=== PATIENT | female | born 1945 | race Two or more races ===

== ENCOUNTER 2016-08-19 09:17 | Observation (INO) | payer MEDICARE, OTHER ==
[~2016-08-19] VITALS: Ht 154.9 cm; Wt 51.3 kg
[~2016-08-19 09:17] MED LIST: ALLO300T2 PO; AMLO5TAB2 PO; ATOR20TA50 PO; CARV12.544 PO; CHOL20007 OR; CYCL1TAB18 PO; FOLIPOW28; LOS50T GT; MEGE40SU PO; NOR10T PO; OMEP20TA85 PO; OYST500T28 PO; POTA10TA34 PO; PROM25TA5 PO; SUCR1TAB PO; TEMA30CA PO
[2016-08-19] MEDS ORDERED: KETOROLAC TROMETH 30 MG/ML 1ML VIAL IV ONE (10:30)
[2016-08-19] MEDS ORDERED: METOCLOPRAMIDE HCL 5MG/ml INJ 2ml VIAL IV ONE (10:30)
[2016-08-19] MEDS ORDERED: SODIUM CHLORIDE 0.9% 1,000 ML IV ONE (10:30)
[2016-08-19 11:09] LABS: Urine RBC None Seen /hpf (0 - 4)
[2016-08-19 11:09] LABS: Basophils # (auto) 0 uL; Basophils % (auto) 0.1 % (0.0-2.0); Eosinophils # (auto) 0.2 uL; Eosinophils % (auto) 1.9 % (0.0-7.0); Hematocrit 36.4 % (36.0-46.0); Hemoglobin 11.9 g/dL (12.2-16.2); Lymphocytes % (auto) 10.7 % (10.0-50.0); Mean Corpuscular Hemoglobin 32.1 pg (28.0-32.0); Mean Corpuscular Hgb Conc. 32.7 g/dL (32.0-36.0); Mean Corpuscular Volume 98.1 fL (80.0-100.0); Mean Platelet Volume 7.2 fL (7.4-10.4); Monocytes # (auto) 0.8 uL; Monocytes % (auto) 8.4 % (0.0-12.0); Neutrophils # (auto) 7.7 uL; Neutrophils % (auto) 78.9 % (37.0-80.0); Platelet Count (auto) 335 10^3/uL (140-450); Red Cell Distribution Width 16.4 % (11.6-16.0); White Blood Cell 9.7 10^3/uL (4.4-10.8)
[2016-08-19 11:19] LABS: Urine Bilirubin Negative (Negative); Urine Blood Negative /uL (Negative); Urine Color Yellow (Yellow); Urine Glucose Normal (Normal); Urine Ketone Negative (Negative); Urine Nitrite Negative (Negative); Urine Squamous Epithelial Cell FEW /hpf (<5); Urine Urobilinogen Normal (Negative)
[2016-08-19 11:31] LABS: Albumin 3.5 g/dL (3.4-5.0); BUN/Creatinine Ratio 35.7; Bilirubin, Total 0.3 mg/dL (0.2-1.0); Calcium 8.2 mg/dL (8.5-10.1); Magnesium 2.5 mg/dL (1.6-2.6); Potassium 4.1 mmol/L (3.5-5.1); Total Protein 7.2 g/dL (6.4-8.2)
[2016-08-19] MEDS ORDERED: ASP81EC PO (11:37)
[2016-08-19] MEDS ORDERED: METF-312 PO (11:38)
[2016-08-19] MEDS ORDERED: FOLI1TAB6 PO (11:39)
[2016-08-19] MEDS ORDERED: DYA375C PO (11:40)
[2016-08-19 11:57] VITALS: BP 120/68
== END 2016-08-19 12:57 | disposition home or self-care (01) | DRG 605 ==
LOC: EDBD 09:17 → ER 09:17 → OVERFLOW 10:33 → ER 12:57
PROVIDERS: ADMIT Emergency Medicine; ATTEND Emergency Medicine
DX: S00.83XA Contusion of other part of head, initial encounter (principal); S39.012A Strain of muscle, fascia and tendon of lower back, initial encounter; S40.012A Contusion of left shoulder, initial encounter; E11.9 Type 2 diabetes mellitus without complications; N39.0 Urinary tract infection, site not specified; E78.5 Hyperlipidemia, unspecified; I10 Essential (primary) hypertension; M10.9 Gout, unspecified; M19.90 Unspecified osteoarthritis, unspecified site; Z98.890 Other specified postprocedural states; W07.XXXA Fall from chair, initial encounter; Y93.89 Activity, other specified; Y92.89 Other specified places as the place of occurrence of the external cause; Y99.8 Other external cause status
CPT/HCPCS: 36415; 70450; 72131; 80053; 81001; 83735; 85025; 93005; 96361; 96374; 96375; 99285; G0378; J1885; J2765; J7030

== ENCOUNTER → 2016-10-02 | Outpatient (CLI) | payer MEDICARE, OTHER ==
[~2016-10-02] MED LIST changes: +ASP81EC PO; +DYA375C PO; +FOLI1TAB6 PO; -FOLIPOW28; +METF-312 PO
[2016-10-02 15:32] LABS: Urine Bilirubin Negative (Negative); Urine Blood Negative /uL (Negative); Urine Color Yellow (Yellow); Urine Glucose Normal (Normal); Urine Ketone Negative (Negative); Urine Nitrite Negative (Negative); Urine RBC <1 /hpf (0 - 4); Urine Squamous Epithelial Cell FEW /hpf (<5); Urine Urobilinogen Normal (Negative); Urine pH 6.5 (5.0-8.0)
== END | disposition home or self-care (01) ==
LOC: LAB 14:49
DX: N39.0 Urinary tract infection, site not specified (principal)
CPT/HCPCS: 81001

== ENCOUNTER → 2016-11-07 | Outpatient (CLI) | payer MEDICARE, OTHER ==
[~2016-11-07] MED LIST changes: -METF-312 PO; +METF-370 PO
[2016-11-07 11:35] LABS: Basophils # (auto) 0 uL; Basophils % (auto) 0.5 % (0.0-2.0); CONDITION Y; Eosinophils # (auto) 0.2 uL; Eosinophils % (auto) 2.8 % (0.0-7.0); Hematocrit 41.3 % (36.0-46.0); Hemoglobin 13.8 g/dL (12.2-16.2); Lymphocytes # (auto) 2.3 uL; Lymphocytes % (auto) 35.1 % (10.0-50.0); Mean Corpuscular Hemoglobin 31.4 pg (28.0-32.0); Mean Corpuscular Hgb Conc. 33.3 g/dL (32.0-36.0); Mean Platelet Volume 7.6 fL (7.4-10.4); Monocytes # (auto) 0.4 uL; Monocytes % (auto) 5.6 % (0.0-12.0); Neutrophils # (auto) 3.6 uL; Platelet Count (auto) 400 10^3/uL (140-450); Red Cell Distribution Width 15.5 % (11.6-16.0); White Blood Cell 6.5 10^3/uL (4.4-10.8)
[2016-11-07 11:45] LABS: Urine Bilirubin Negative (Negative); Urine Blood Negative /uL (Negative); Urine Color Yellow (Yellow); Urine Glucose Normal (Normal); Urine Ketone Negative (Negative); Urine Nitrite Negative (Negative); Urine RBC 4 /hpf (0 - 4); Urine Squamous Epithelial Cell FEW /hpf (<5); Urine Urobilinogen Normal (Negative)
[2016-11-07 12:11] LABS: Albumin 4.1 g/dL (3.4-5.0); BUN/Creatinine Ratio 23.3; Bilirubin, Total 0.4 mg/dL (0.2-1.0); Calcium 8.2 mg/dL (8.5-10.1); Potassium 3.8 mmol/L (3.5-5.1); Total Protein 8.5 g/dL (6.4-8.2); Uric Acid 6.6 mg/dL (2.6-6.0)
== END | disposition home or self-care (01) ==
LOC: LAB 10:16
PROVIDERS: ATTEND Internal Medicine
DX: Z00.00 Encounter for general adult medical examination without abnormal findings (principal); I10 Essential (primary) hypertension; E78.00 Pure hypercholesterolemia, unspecified; E55.9 Vitamin D deficiency, unspecified; E11.22 Type 2 diabetes mellitus with diabetic chronic kidney disease; M06.9 Rheumatoid arthritis, unspecified
CPT/HCPCS: 36415; 80053; 80061; 81001; 82043; 82306; 82607; 82728; 83036; 83540; 84439; 84443; 84481; 84550; 85025; 85652; 86141

== ENCOUNTER → 2017-02-21 | Outpatient (CLI) | payer MEDICARE, OTHER ==
[2017-02-21 13:42] LABS: Basophils # (auto) 0 uL; Basophils % (auto) 0.4 % (0.0-2.0); Eosinophils # (auto) 0.1 uL; Eosinophils % (auto) 0.8 % (0.0-7.0); Hematocrit 41.3 % (36.0-46.0); Hemoglobin 13.6 g/dL (12.2-16.2); Lymphocytes # (auto) 1.7 uL; Lymphocytes % (auto) 21.7 % (10.0-50.0); Mean Corpuscular Hemoglobin 32.5 pg (28.0-32.0); Mean Corpuscular Hgb Conc. 32.8 g/dL (32.0-36.0); Mean Corpuscular Volume 99.1 fL (80.0-100.0); Mean Platelet Volume 7.5 fL (6.9-10.8); Monocytes # (auto) 0.5 uL; Monocytes % (auto) 6.7 % (0.0-12.0); Neutrophils # (auto) 5.4 uL; Neutrophils % (auto) 70.4 % (37.0-80.0); Platelet Count (auto) 240 10^3/uL (140-450); White Blood Cell 7.6 10^3/uL (4.4-10.8)
[2017-02-21 14:03] LABS: Albumin 4.2 g/dL (3.4-5.0); Alkaline Phosphatase 65 U/L (45-117); Anion Gap 5 (5-15); Aspartate Aminotransferase 43 U/L (15-37); BUN/Creatinine Ratio 17.5; Bilirubin, Total 0.4 mg/dL (0.2-1.0); Blood Urea Nitrogen 21 mg/dL (7-18); Calcium 8.8 mg/dL (8.5-10.1); Carbon Dioxide 27 mmol/L (21-32); Chloride 108 mmol/L (98-107); GFR African American 57 mL/min; GFR Non-African American 47 mL/min; Glucose 104 mg/dL (74-106); Potassium 3.6 mmol/L (3.5-5.1); Sodium 140 mmol/L (136-145); Total Protein 8.4 g/dL (6.4-8.2)
== END | disposition home or self-care (01) ==
LOC: LAB 13:25
DX: M06.9 Rheumatoid arthritis, unspecified (principal); M25.50 Pain in unspecified joint; I10 Essential (primary) hypertension; Z79.899 Other long term (current) drug therapy
CPT/HCPCS: 36415; 80053; 85025; 85652; 86141

== ENCOUNTER → 2017-04-23 | Outpatient (CLI) | payer MEDICARE, OTHER ==
[2017-04-23 11:48] LABS: Basophils # (auto) 0.1 uL; Eosinophils # (auto) 0.2 uL; Eosinophils % (auto) 2.4 % (0.0-7.0); Hematocrit 41.6 % (36.0-46.0); Hemoglobin 13.4 g/dL (12.2-16.2); Lymphocytes # (auto) 1.6 uL; Lymphocytes % (auto) 22.4 % (10.0-50.0); Mean Corpuscular Hemoglobin 32.4 pg (28.0-32.0); Mean Corpuscular Hgb Conc. 32.4 g/dL (32.0-36.0); Mean Corpuscular Volume 100.1 fL (80.0-100.0); Monocytes # (auto) 0.5 uL; Monocytes % (auto) 7.5 % (0.0-12.0); Neutrophils # (auto) 4.7 uL; Neutrophils % (auto) 65.7 % (37.0-80.0); Platelet Count (auto) 207 10^3/uL (140-450); White Blood Cell 7.1 10^3/uL (4.4-10.8)
[2017-04-23 12:13] LABS: Albumin 4.1 g/dL (3.4-5.0); Alkaline Phosphatase 68 U/L (45-117); Anion Gap 8 (5-15); Aspartate Aminotransferase 46 U/L (15-37); BUN/Creatinine Ratio 18.4; Bilirubin, Total 0.4 mg/dL (0.2-1.0); Blood Urea Nitrogen 21 mg/dL (7-18); Calcium 9.4 mg/dL (8.5-10.1); Carbon Dioxide 27 mmol/L (21-32); Chloride 104 mmol/L (98-107); Cholesterol 142 mg/dL (< 200); GFR African American 60 mL/min; GFR Non-African American 50 mL/min; Glucose 84 mg/dL (74-106); HDL Cholesterol 73 mg/dL (40-59); LDL Cholesterol 58 mg/dL (< 100); Potassium 4.4 mmol/L (3.5-5.1); Sodium 139 mmol/L (136-145); Total Protein 8.3 g/dL (6.4-8.2); Triglycerides 148 mg/dL (< 150)
== END | disposition home or self-care (01) ==
LOC: LAB 11:19
DX: I10 Essential (primary) hypertension (principal); E78.00 Pure hypercholesterolemia, unspecified; M06.9 Rheumatoid arthritis, unspecified; D64.9 Anemia, unspecified; I70.0 Atherosclerosis of aorta; Z79.899 Other long term (current) drug therapy
CPT/HCPCS: 36415; 80053; 80061; 85025; 85652; 86141

== ENCOUNTER 2017-06-29 22:18 | Emergency (ER) | payer MEDICARE, OTHER ==
[2017-06-29 23:44] LABS: Basophils # (auto) 0 uL; Basophils % (auto) 0.5 % (0.0-2.0); Eosinophils # (auto) 0.2 uL; Eosinophils % (auto) 2.6 % (0.0-7.0); Hematocrit 42.7 % (36.0-46.0); Hemoglobin 14.1 g/dL (12.2-16.2); Lymphocytes # (auto) 1.9 uL; Lymphocytes % (auto) 24.4 % (10.0-50.0); Mean Corpuscular Hgb Conc. 32.9 g/dL (32.0-36.0); Mean Corpuscular Volume 94.3 fL (80.0-100.0); Monocytes # (auto) 0.6 uL; Monocytes % (auto) 8.4 % (0.0-12.0); Neutrophils # (auto) 4.9 uL; Neutrophils % (auto) 64.1 % (37.0-80.0); Nucleated Red Blood Cells % 0.2 %; Platelet Count (auto) 268 10^3/uL (140-450); Red Blood Cells 4.53 10^6/uL (4.0-5.20); White Blood Cell 7.7 10^3/uL (4.4-10.8)
[2017-06-29 23:59] LABS: Urine Amorphous Crystal FEW /hpf (None Seen); Urine Bacteria MOD /hpf (None Seen); Urine Blood TRACE /uL (Negative); Urine Mucus FEW (None Seen); Urine WBC 1 /hpf (0 - 5)
[2017-06-30] LABS: INR 0.95 (0.9-1.15); Partial Thromboplastin Time 26.3 sec (22.64-33.71); Prothrombin Time 10.4 sec (9.37-12.3)
[2017-06-30 00:01] LABS: Alanine Aminotransferase 152 U/L (13-56); Albumin 3.9 g/dL (3.4-5.0); Anion Gap 8 (5-15); Aspartate Aminotransferase 169 U/L (15-37); BUN/Creatinine Ratio 12.7; Blood Urea Nitrogen 14 mg/dL (7-18); Calcium 10.5 mg/dL (8.5-10.1); Carbon Dioxide 33 mmol/L (21-32); Chloride 102 mmol/L (98-107); GFR African American 63 mL/min; GFR Non-African American 52 mL/min; Glucose 126 mg/dL (74-106); Magnesium 3.5 mg/dL (1.6-2.6); Sodium 143 mmol/L (136-145)
[2017-06-30 00:06] LABS: Alkaline Phosphatase 122 U/L (45-117); Bilirubin, Total 0.4 mg/dL (0.2-1.0); Total Protein 8.5 g/dL (6.4-8.2)
[2017-06-30] MEDS ORDERED: NALBUPHINE HCL 10 MG/1ml INJECTION IV ONE (04:15)
[2017-06-30] MEDS ORDERED: ONDANSETRON HCL 4 MG/2 ML VIAL IV ONE (04:15)
[2017-06-30] MEDS ORDERED: POTASSIUM CHL 20 Meq TABLET PO ONE ×2 (05:59→06:00)
[2017-06-30] MEDS ORDERED: POTASSIUM CHL 10% (20 MEQ/15ML) 15ml ORAL SOLN PO ONE (08:00)
[2017-06-30] MEDS ORDERED: HYDROcodone-ACET 10/325MG TAB PO ONE (08:15)
[2017-06-30 09:48] VITALS: BP 133/69
== END 2017-06-30 11:00 | disposition home or self-care (01) ==
LOC: ER 22:18
DX: S39.012A Strain of muscle, fascia and tendon of lower back, initial encounter (principal); M10.9 Gout, unspecified; I10 Essential (primary) hypertension; E87.6 Hypokalemia; E11.9 Type 2 diabetes mellitus without complications; E78.5 Hyperlipidemia, unspecified; M19.90 Unspecified osteoarthritis, unspecified site; Z90.49 Acquired absence of other specified parts of digestive tract; R79.89 Other specified abnormal findings of blood chemistry; G89.29 Other chronic pain; M54.9 Dorsalgia, unspecified; X58.XXXA Exposure to other specified factors, initial encounter; Y93.89 Activity, other specified; Y92.89 Other specified places as the place of occurrence of the external cause; Y99.8 Other external cause status
CPT/HCPCS: 36415; 71046; 74176; 80053; 81001; 83735; 83880; 84443; 84484; 85025; 85379; 85610; 85730; 87804; 93005; 96374; 96375; 99285; J2300; J2405

== ENCOUNTER → 2017-10-10 | Outpatient (CLI) | payer MEDICARE, OTHER ==
[2017-10-10 12:39] LABS: Basophils # (auto) 0 uL; Basophils % (auto) 0.3 % (0.0-2.0); Eosinophils # (auto) 0.2 uL; Eosinophils % (auto) 2.6 % (0.0-7.0); Hematocrit 40.8 % (36.0-46.0); Hemoglobin 13.3 g/dL (12.2-16.2); Lymphocytes # (auto) 1.9 uL; Lymphocytes % (auto) 28.6 % (10.0-50.0); Mean Corpuscular Hemoglobin 30.7 pg (28.0-32.0); Mean Corpuscular Hgb Conc. 32.6 g/dL (32.0-36.0); Mean Corpuscular Volume 94.2 fL (80.0-100.0); Monocytes # (auto) 0.5 uL; Neutrophils # (auto) 3.9 uL; Neutrophils % (auto) 60.5 % (37.0-80.0); Platelet Count (auto) 194 10^3/uL (140-450); Red Blood Cells 4.33 10^6/uL (4.0-5.20); Red Cell Distribution Width 15.5 % (11.8-14.3); White Blood Cell 6.5 10^3/uL (4.4-10.8)
[2017-10-10 12:42] LABS: Urine Bacteria NONE SEEN /hpf (None Seen); Urine Blood 1+ /uL (Negative); Urine Mucus FEW (None Seen); Urine WBC 4 /hpf (0 - 5)
[2017-10-10 13:48] LABS: Potassium 4.4 mmol/L (3.5-5.1)
[2017-10-10 14:11] LABS: Albumin 3.6 g/dL (3.4-5.0); Bilirubin, Total 0.2 mg/dL (0.2-1.0); Calcium 10.1 mg/dL (8.5-10.1); Total Protein 8.7 g/dL (6.4-8.2)
== END | disposition home or self-care (01) ==
LOC: LAB 11:48
PROVIDERS: ATTEND Physician Assistant
DX: Z01.818 Encounter for other preprocedural examination (principal); I12.9 Hypertensive chronic kidney disease with stage 1 through stage 4 chronic kidney disease, or unspecified chronic kidney disease; E11.22 Type 2 diabetes mellitus with diabetic chronic kidney disease; N18.3 Chronic kidney disease, stage 3 (moderate); D63.1 Anemia in chronic kidney disease; K76.0 Fatty (change of) liver, not elsewhere classified
CPT/HCPCS: 36415; 80053; 80061; 81001; 85025

== ENCOUNTER 2017-11-11 15:36 | Emergency (ER) | payer MEDICARE, OTHER ==
[~2017-11-11] VITALS: Ht 154.9 cm; Wt 45.4 kg
[2017-11-11 16:00] VITALS: BP 107/61
[2017-11-11] MEDS ORDERED: KETOROLAC TROMETH 60MG/2ML VIAL IM ONE (18:30)
== END 2017-11-11 19:00 | disposition home or self-care (01) ==
LOC: ER 15:36
DX: M25.552 Pain in left hip (principal); M25.551 Pain in right hip; E11.9 Type 2 diabetes mellitus without complications; M10.9 Gout, unspecified; E78.5 Hyperlipidemia, unspecified; M06.9 Rheumatoid arthritis, unspecified; I10 Essential (primary) hypertension; Z90.49 Acquired absence of other specified parts of digestive tract; Z88.8 Allergy status to other drugs, medicaments and biological substances; Z79.899 Other long term (current) drug therapy; Z79.84 Long term (current) use of oral hypoglycemic drugs; Z79.82 Long term (current) use of aspirin
CPT/HCPCS: 73502; 96372; 99284; J1885

== ENCOUNTER 2018-07-08 10:39 | Emergency (ER) | payer MEDICARE, OTHER ==
[~2018-07-08 10:39] MED LIST changes: +AMLO5TAB13 PO; -AMLO5TAB2 PO; -POTA10TA34 PO; +POTA1TAB61 PO
[2018-07-08 14:05] VITALS: BP 141/58
== END 2018-07-08 15:26 | disposition home or self-care (01) ==
LOC: ER 10:46
DX: T17.208A Unspecified foreign body in pharynx causing other injury, initial encounter (principal); I10 Essential (primary) hypertension; E78.00 Pure hypercholesterolemia, unspecified; E11.9 Type 2 diabetes mellitus without complications; Z90.49 Acquired absence of other specified parts of digestive tract; Z88.8 Allergy status to other drugs, medicaments and biological substances; Z79.82 Long term (current) use of aspirin; Z79.891 Long term (current) use of opiate analgesic; Z79.899 Other long term (current) drug therapy; X58.XXXA Exposure to other specified factors, initial encounter; Y93.89 Activity, other specified; Y99.8 Other external cause status; Y92.89 Other specified places as the place of occurrence of the external cause
CPT/HCPCS: 70360

== ENCOUNTER → 2019-02-13 | Outpatient (CLI) | payer MEDICARE, OTHER ==
[~2019-02-13] MED LIST changes: -AMLO5TAB13 PO; +AMLO5TAB15 PO; -ATOR20TA50 PO; -CARV12.544 PO; -CYCL1TAB18 PO; -DYA375C PO; +HYDR1TAB97; +IBUP800T24; -LOS50T GT; -MEGE40SU PO; +MET25T; -NOR10T PO; -PROM25TA5 PO; +ROSU1TAB15; -SUCR1TAB PO; -TEMA30CA PO
[2019-02-13 08:04] LABS: Urine Bacteria NONE SEEN /hpf (None Seen); Urine Blood 2+ /uL (Negative); Urine Mucus FEW (None Seen); Urine Specific Gravity 1.033 (1.001-1.035); Urine WBC 830 /hpf (0 - 5); Urine WBC Clumps PRESENT /hpf (None Seen)
== END | disposition home or self-care (01) ==
LOC: LAB 07:18
PROVIDERS: ATTEND Nurse Practitioner Family
DX: N39.0 Urinary tract infection, site not specified (principal)
CPT/HCPCS: 81001; 87086

== ENCOUNTER 2019-02-14 08:41 | Inpatient (IN) | payer MEDICARE, OTHER ==
[~2019-02-14] VITALS: Ht 160 cm; Wt 65.2 kg
[2019-02-14 10:44] LABS: Basophils # (auto) 0 uL; Basophils % (auto) 0.2 % (0.0-2.0); Eosinophils # (auto) 0.1 uL; Eosinophils % (auto) 0.8 % (0.0-7.0); Lymphocytes # (auto) 0.4 uL; Mean Corpuscular Volume 82.5 fL (80.0-100.0); Monocytes # (auto) 0.5 uL
[2019-02-14 10:45] LABS: Hematocrit 25.6 % (36.0-46.0); Lymphocytes % (auto) 3.5 % (10.0-50.0); Mean Corpuscular Hemoglobin 25.8 pg (28.0-32.0); Mean Corpuscular Hgb Conc. 31.3 g/dL (32.0-36.0); Neutrophils # (auto) 9.9 uL; Neutrophils % (auto) 90.5 % (37.0-80.0); Nucleated Red Blood Cells % 0.1 %; Platelet Count (auto) 217 10^3/uL (140-450); Red Blood Cells 3.11 10^6/uL (4.0-5.20); White Blood Cell 10.9 10^3/uL (4.4-10.8)
[2019-02-14 10:52] LABS: Red Cell Distribution Width 22.6 % (11.8-14.3)
[2019-02-14 10:59] LABS: INR 1.01 (0.9-1.15); Partial Thromboplastin Time 36.7 sec (23.64-32.05)
[2019-02-14] MEDS ORDERED: SODIUM CHLORIDE 0.9% 2,000 ML IV ONE (11:00)
[2019-02-14] MEDS ORDERED: VANCOMYCIN 1GM/250ML 250 ML IV ONE (11:00)
[2019-02-14] MEDS ORDERED: PIPERACILLIN-TAZOB 3.375GM 100 ML IV ONE (11:00)
[2019-02-14 11:09] LABS: Alanine Aminotransferase 15 U/L (13-56); Albumin 2.7 g/dL (3.4-5.0); Anion Gap 12 (5-15); Blood Urea Nitrogen 20 mg/dL (7-18); Calcium 8.4 mg/dL (8.5-10.1); Carbon Dioxide 19 mmol/L (21-32); Chloride 110 mmol/L (98-107); Glucose 110 mg/dL (74-106); Magnesium 2.2 mg/dL (1.6-2.6); Potassium 3.4 mmol/L (3.5-5.1); Sodium 141 mmol/L (136-145)
[2019-02-14 11:14] LABS: Alkaline Phosphatase 217 U/L (45-117); Aspartate Aminotransferase 37 U/L (15-37); BUN/Creatinine Ratio 12.9; Bilirubin, Total 0.6 mg/dL (0.2-1.0); GFR African American 42 mL/min; GFR Non-African American 35 mL/min; Total Protein 7.4 g/dL (6.4-8.2)
[2019-02-14] MEDS ORDERED: ONDANSETRON HCL 4 MG/2 ML VIAL IV ONE ×2 (12:30→16:00)
[2019-02-14 13:06] LABS: Urine Bacteria NONE SEEN /hpf (None Seen); Urine Blood 1+ /uL (Negative); Urine Specific Gravity 1.009 (1.001-1.035); Urine WBC 21 /hpf (0 - 5)
[2019-02-14] MEDS ORDERED: KETOROLAC TROMETH 30 MG/ML 1ML VIAL ONE (13:33)
[2019-02-14] MEDS ORDERED: KETOROLAC TROMETH 30 MG/ML 1ML VIAL IV ONE (14:00)
[2019-02-14] MEDS ORDERED: MORPHINE SULFATE 4 MG/ML SYR/VIAL IV ONE (16:00)
[2019-02-14] MEDS ORDERED: MORPHINE SULF INJ 2 MG/ML SYRINGE 1ML IV PRN (17:45)
[2019-02-14] MEDS ORDERED: NITROGLYCERIN 0.4 MG SL TAB SL PRN (17:45)
[2019-02-14] MEDS ORDERED: ONDANSETRON HCL 4 MG/2 ML VIAL IV PRN (17:45)
[2019-02-14] MEDS ORDERED: DEXTROSE (50%) 50ML SYRG IV PRN (17:45)
[2019-02-14] MEDS ORDERED: POTASSIUM EFFERVESENT TAB 25 MEQ PO ONE (17:45)
[2019-02-14] MEDS ORDERED: cefTRIAXone 1GM/50ML D5W 50 ML IV ONE (18:00)
[2019-02-14] MEDS: SODIUM CHLORIDE 0.9% 1,000 ML IV SCH (18:02)
--- NOTE | 2019-02-14 19:47 | NUR ---
Telemetry admit from ER SHARAMURIEL admitted to Telemetry unit after SBAR received. Patient oriented to TYRONE IVORY, RN primary RN, [facility],248 room,A bed, and unit policies regarding patient care and visiting hours. Patient now on continuous telemetry monitoring, tele box #7 and telemetry reading on arrival to unit is ST 130s. Patient placed on bedside oxygen @ 2L/min, weighed by bed scale and encouraged to call if they need something. All questions and concerns addressed, patient verbalized understanding. Note: Family members at bedside. Patient has no complaints of chest pain and shortness of breath. Resp even and unlabored; breath sounds clear bilaterally. Patient is alert and oriented and speaks minimal Mexican. Will continue to monitor.
[2019-02-14 21:16] VITALS: BP 115/54
[2019-02-14 22:00] VITALS: BP 115/56
[2019-02-14] MEDS: ACCU-CHEK COMFORT CURVE STRIP VI SCH (22:00)
[2019-02-14] MEDS: InsuLIN REG 1unit/0.01ml Soln (100units/ml) SC SCH (22:00)
[2019-02-14] MEDS: METOPROLOL TARTRATE 25 MG TAB PO SCH (22:28)
[2019-02-14] MEDS: ATORVASTATIN 20 MG TAB PO SCH (22:28)
[2019-02-14] MEDS: MORPHINE SULF INJ 2 MG/ML SYRINGE 1ML IV PRN (23:34)
[2019-02-15] MEDS: SODIUM CHLORIDE 0.9% 1,000 ML IV SCH ×3 (01:35→18:30)
[2019-02-15 05:00] VITALS: BP 128/59
--- NOTE | 2019-02-15 05:00 | NUR ---
IV to right hand noted to be infiltrated. No IV site to right upper arm with 22 gauge angiocath inserted.
[2019-02-15] MEDS: MORPHINE SULF INJ 2 MG/ML SYRINGE 1ML IV PRN ×3 (06:03→18:30)
[2019-02-15] MEDS: InsuLIN REG 1unit/0.01ml Soln (100units/ml) SC SCH ×4 (06:08→21:42)
[2019-02-15] MEDS: ACCU-CHEK COMFORT CURVE STRIP VI SCH ×4 (06:08→21:42)
[2019-02-15 07:24] LABS: Basophils # (auto) 0 uL; Basophils % (auto) 0.6 % (0.0-2.0); Eosinophils # (auto) 0.1 uL
[2019-02-15 07:26] LABS: Eosinophils % (auto) 1.1 % (0.0-7.0); Hematocrit 22.6 % (36.0-46.0); Hemoglobin 7.5 g/dL (12.2-16.2); Lymphocytes # (auto) 0.7 uL; Lymphocytes % (auto) 11.6 % (10.0-50.0); Mean Corpuscular Hemoglobin 26.2 pg (28.0-32.0); Mean Corpuscular Volume 79.4 fL (80.0-100.0); Monocytes # (auto) 0.5 uL; Monocytes % (auto) 8.9 % (0.0-12.0); Neutrophils # (auto) 4.4 uL; Neutrophils % (auto) 77.8 % (37.0-80.0); Platelet Count (auto) 175 10^3/uL (140-450); Red Blood Cells 2.85 10^6/uL (4.0-5.20); White Blood Cell 5.7 10^3/uL (4.4-10.8)
[2019-02-15 07:27] LABS: Red Cell Distribution Width 22.3 % (11.8-14.3)
[2019-02-15 07:38] LABS: Potassium 3.1 mmol/L (3.5-5.1)
[2019-02-15 07:42] LABS: BUN/Creatinine Ratio 10.7; Calcium 8.2 mg/dL (8.5-10.1)
--- NOTE | 2019-02-15 07:50 | NUR ---
Opening Note Assumed care of patient. No s/s of distress at this time, patient is able to communicate that she would like to sleep more. Patient speaks another language, unknown which language, she says "my daughter coming." Will call family to translate patient needs and POC if they do not come by medication pass time. Bed is in low, locked position, call light within reach. Patient has a capellan catheter in place that is patent and draining. Will continue to monitor Q1h and PRN.
[2019-02-15 09:00] VITALS: BP_SYST 113; BP_SYST 130; BP_DIAS 50; BP_DIAS 81
[2019-02-15] MEDS: ALLOPURINOL 300 MG TAB PO SCH (10:38)
[2019-02-15] MEDS: CLOPIDOGREL BISULFATE 75 MG TAB PO SCH (10:38)
[2019-02-15] MEDS: cefTRIAXone 1GM/50ML D5W 50 ML IV SCH (10:38)
[2019-02-15] MEDS: FAMOTIDINE 20 MG TAB PO SCH (10:39)
[2019-02-15] MEDS: ASPirin-EC 81 mg tab PO SCH (10:39)
[2019-02-15] MEDS: amLODIPine BESYLATE 5 MG TAB PO SCH (10:39)
[2019-02-15] MEDS: FOLIC ACID 1 MG TAB PO SCH (10:39)
[2019-02-15] MEDS: METOPROLOL TARTRATE 25 MG TAB PO SCH ×2 (10:40→21:39)
[2019-02-15 13:00] VITALS: BP 112/55
[2019-02-15] MEDS: HYDROcodone-ACET 5/325MG TAB PO PRN ×2 (15:26→21:39)
[2019-02-15 17:00] VITALS: BP 106/53
--- NOTE | 2019-02-15 19:40 | NUR ---
Opening Shift Note Assumed care of patient, awake and alert. No S/S of distress/SOB or pain. Bed locked in lowest position, side rails upx2, call light within reach. Instructed on POC and to call for assist PRN, will continue to monitor for changes Q1hr and PRN.
[2019-02-15] MEDS: ATORVASTATIN 20 MG TAB PO SCH (21:39)
[2019-02-15 22:00] VITALS: BP 119/57
[2019-02-16] MEDS: MORPHINE SULF INJ 2 MG/ML SYRINGE 1ML IV PRN ×4 (01:22→18:22)
[2019-02-16] MEDS: SODIUM CHLORIDE 0.9% 1,000 ML IV SCH ×3 (01:35→17:55)
[2019-02-16 05:00] VITALS: BP 123/61
[2019-02-16] MEDS: InsuLIN REG 1unit/0.01ml Soln (100units/ml) SC SCH ×4 (06:24→21:42)
[2019-02-16] MEDS: ACCU-CHEK COMFORT CURVE STRIP VI SCH ×4 (06:24→21:43)
--- NOTE | 2019-02-16 08:00 | NUR ---
Opening Shift Note Assumed care of patient, awake and alert. No S/S of distress/SOB, 7/10 headache. Instructed on POC and to call for assist PRN, will continue to monitor for changes Q1hr and PRN.
[2019-02-16] MEDS: ACETAMINOPHEN 500 MG TAB PO PRN (08:12)
[2019-02-16] MEDS: cefTRIAXone 1GM/50ML D5W 50 ML IV SCH (08:48)
[2019-02-16 09:15] VITALS: BP 137/61
[2019-02-16] MEDS ORDERED: LACTULOSE 20Gm/30ML SOLN PO ONE (09:45)
[2019-02-16] MEDS: CLOPIDOGREL BISULFATE 75 MG TAB PO SCH (09:49)
[2019-02-16] MEDS: FOLIC ACID 1 MG TAB PO SCH (09:49)
[2019-02-16] MEDS: amLODIPine BESYLATE 5 MG TAB PO SCH (09:49)
[2019-02-16] MEDS: METOPROLOL TARTRATE 25 MG TAB PO SCH ×2 (09:50→21:40)
[2019-02-16] MEDS: ALLOPURINOL 300 MG TAB PO SCH (09:50)
[2019-02-16] MEDS: ASPirin-EC 81 mg tab PO SCH (09:50)
[2019-02-16] MEDS: FAMOTIDINE 20 MG TAB PO SCH (09:51)
--- NOTE | 2019-02-16 10:00 | NUR ---
CT abdomen/pelvis done. Waiting for results.
[2019-02-16 13:00] VITALS: BP 122/65
[2019-02-16] MEDS: HYDROcodone-ACET 5/325MG TAB PO PRN (16:30)
[2019-02-16 17:00] VITALS: BP 141/67
[2019-02-16] MEDS: ATORVASTATIN 20 MG TAB PO SCH (21:40)
[2019-02-16 22:07] VITALS: BP 141/65
[2019-02-17] MEDS: ACETAMINOPHEN 500 MG TAB PO PRN ×2 (00:38→10:35)
[2019-02-17] MEDS: SODIUM CHLORIDE 0.9% 1,000 ML IV SCH (01:35)
[2019-02-17] MEDS: MORPHINE SULF INJ 2 MG/ML SYRINGE 1ML IV PRN ×2 (01:44→06:39)
[2019-02-17 05:16] VITALS: BP 128/61
[2019-02-17] MEDS: InsuLIN REG 1unit/0.01ml Soln (100units/ml) SC SCH (06:39)
[2019-02-17] MEDS: ACCU-CHEK COMFORT CURVE STRIP VI SCH (06:39)
--- NOTE | 2019-02-17 08:00 | NUR ---
Opening Shift Note Assumed care of patient, awake and alert. No S/S of distress/SOB, 4/10 hypogastric pain. Instructed on POC and to call for assist PRN, will continue to monitor for changes Q1hr and PRN.
[2019-02-17 08:38] VITALS: BP 128/61
[2019-02-17] MEDS: cefTRIAXone 1GM/50ML D5W 50 ML IV SCH (09:23)
[2019-02-17] MEDS: FAMOTIDINE 20 MG TAB PO SCH (09:24)
[2019-02-17] MEDS: CLOPIDOGREL BISULFATE 75 MG TAB PO SCH (09:25)
[2019-02-17] MEDS: HYDROcodone-ACET 5/325MG TAB PO PRN (09:25)
[2019-02-17] MEDS: ALLOPURINOL 300 MG TAB PO SCH (09:25)
[2019-02-17] MEDS: amLODIPine BESYLATE 5 MG TAB PO SCH (09:25)
[2019-02-17] MEDS: ASPirin-EC 81 mg tab PO SCH (09:26)
[2019-02-17] MEDS: FOLIC ACID 1 MG TAB PO SCH (09:26)
[2019-02-17] MEDS: METOPROLOL TARTRATE 25 MG TAB PO SCH (09:26)
--- NOTE | 2019-02-17 11:44 | NUR ---
Capellan catheter dc'd Order to discontinue capellan catheter. Capellan dc'd with clean technique following deflation of balloon. Patient tolerated well with no complaints of pain. Continue care.
[2019-02-17 12:04] VITALS: BP 128/61
--- NOTE | 2019-02-17 13:30 | NUR ---
Patient stated able to urinate after capellan catheter removal on the bedside commode.
--- NOTE | 2019-02-17 14:15 | NUR ---
Discharge instructions given as ordered. Encourage to follow up with primary care provider Kaye Mayn[facility] on 03/02/19 at 2:40pm #[phone] ext. [phone] located at [address] [place] [id number] as instructed. All questions and concerns addressed. Patient verbalized understanding. Medication reconciliation form completed and copy given to patient. IV removed with catheter intact, pressure dressing applied. Telemetry unit returned to ICU. Patient taken to vehicle via wheelchair with all personal belongings, accompanied by staff and family member. No distress noted at time of departure.
--- NOTE | 2019-02-17 16:36 | NUR ---
assessment Patient has no post discharge needs. Addendum: 02/17/19 at 1636 by Hallie HARDY Amended: Links added.
== END 2019-02-17 14:15 | disposition home or self-care (01) | DRG 720 ==
LOC: EDBD 08:41 → ER 08:41 → TELE 08:42 → TELE-EAST 19:37
PROVIDERS: ADMIT Nurse Practitioner Acute Care; ATTEND Family Medicine
DX: A41.9 Sepsis, unspecified organism (principal); G93.41 Metabolic encephalopathy; N17.9 Acute kidney failure, unspecified; E44.0 Moderate protein-calorie malnutrition; K83.8 Other specified diseases of biliary tract; E11.21 Type 2 diabetes mellitus with diabetic nephropathy; E11.40 Type 2 diabetes mellitus with diabetic neuropathy, unspecified; I48.0 Paroxysmal atrial fibrillation; M48.56XA Collapsed vertebra, not elsewhere classified, lumbar region, initial encounter for fracture; D64.9 Anemia, unspecified; E78.5 Hyperlipidemia, unspecified; G89.29 Other chronic pain; E78.00 Pure hypercholesterolemia, unspecified; M10.9 Gout, unspecified; E86.0 Dehydration; I70.0 Atherosclerosis of aorta; J98.11 Atelectasis; K59.00 Constipation, unspecified; E87.6 Hypokalemia; I10 Essential (primary) hypertension; I25.10 Atherosclerotic heart disease of native coronary artery without angina pectoris; N39.0 Urinary tract infection, site not specified; Z79.84 Long term (current) use of oral hypoglycemic drugs; Z95.5 Presence of coronary angioplasty implant and graft; Z79.891 Long term (current) use of opiate analgesic; Z68.25 Body mass index [BMI] 25.0-25.9, adult; I25.2 Old myocardial infarction; Z79.899 Other long term (current) drug therapy
CPT/HCPCS: 36415; 71045; 74176; 80048; 80053; 81001; 82962; 83036; 83605; 83735; 83880; 84443; 84484; 85025; 85610; 85730; 87040; 87086; 94761; 96361; 96365; 96367; 96375; G0378; J0696; J1815; J1885; J2405; J2543

== ENCOUNTER 2019-07-13 15:19 | Emergency (ER) | payer MEDICARE, OTHER ==
[~2019-07-13] VITALS: Ht 160 cm; Wt 59.0 kg
[~2019-07-13 15:19] MED LIST changes: -METF-370 PO; -OYST500T28 PO
[2019-07-13] MEDS ORDERED: SODIUM CHLORIDE 0.9% 500 ML IV ONE (15:48)
[2019-07-13 16:11] LABS: Basophils # (auto) 0 uL; Basophils % (auto) 0.8 % (0.0-2.0); Eosinophils # (auto) 0.1 uL; Eosinophils % (auto) 2.6 % (0.0-7.0); Hematocrit 37.7 % (36.0-46.0); Hemoglobin 12.1 g/dL (12.2-16.2); Lymphocytes # (auto) 1.3 uL; Lymphocytes % (auto) 34.4 % (10.0-50.0); Mean Corpuscular Hemoglobin 29.8 pg (28.0-32.0); Mean Corpuscular Volume 93.2 fL (80.0-100.0); Monocytes # (auto) 0.4 uL; Monocytes % (auto) 9.2 % (0.0-12.0); Platelet Count (auto) 141 10^3/uL (140-450); Red Blood Cells 4.05 10^6/uL (4.0-5.20); Red Cell Distribution Width 17.9 % (11.8-14.3); White Blood Cell 3.8 10^3/uL (4.4-10.8)
[2019-07-13 16:36] LABS: Alanine Aminotransferase 101 U/L (13-56); Albumin 3.2 g/dL (3.4-5.0); Anion Gap 3 (5-15); Aspartate Aminotransferase 56 U/L (15-37); BUN/Creatinine Ratio 8.5; Blood Urea Nitrogen 10 mg/dL (7-18); Calcium 8.7 mg/dL (8.5-10.1); Carbon Dioxide 27 mmol/L (21-32); Chloride 111 mmol/L (98-107); GFR African American 58 mL/min; GFR Non-African American 48 mL/min; Glucose 115 mg/dL (74-106); Potassium 3.4 mmol/L (3.5-5.1); Sodium 141 mmol/L (136-145)
[2019-07-13 16:39] LABS: Alkaline Phosphatase 147 U/L (45-117); Bilirubin, Total 0.3 mg/dL (0.2-1.0); Total Protein 7.2 g/dL (6.4-8.2)
[2019-07-13 19:51] LABS: Urine Bacteria NONE SEEN /hpf (None Seen); Urine Blood Negative /uL (Negative); Urine Specific Gravity 1.009 (1.001-1.035); Urine WBC 2 /hpf (0 - 5)
[2019-07-13 21:55] VITALS: BP 101/47
== END 2019-07-13 21:19 | disposition home or self-care (01) ==
LOC: EDBD 15:19 → ER 15:28
DX: G89.4 Chronic pain syndrome (principal); R19.7 Diarrhea, unspecified; E11.9 Type 2 diabetes mellitus without complications; E78.5 Hyperlipidemia, unspecified; I10 Essential (primary) hypertension; I25.2 Old myocardial infarction; Z90.49 Acquired absence of other specified parts of digestive tract; Z88.8 Allergy status to other drugs, medicaments and biological substances; Z79.82 Long term (current) use of aspirin; Z79.1 Long term (current) use of non-steroidal anti-inflammatories (NSAID); Z79.899 Other long term (current) drug therapy
CPT/HCPCS: 36415; 80053; 81001; 84484; 85025; 93005; 96360; 96361; 99284; J7040

== ENCOUNTER 2019-10-14 17:51 | Inpatient (IN) | payer MEDICARE, OTHER ==
[~2019-10-14] VITALS: Ht 162.6 cm; Wt 39.6 kg
[~2019-10-14 17:51] MED LIST changes: -ASP81EC PO; +ASPI-394 PO; -HYDR1TAB97; +HYDR1TAB97 PO
[2019-10-14 18:35] LABS: Basophils # (auto) 0 10 ^3/uL (0-0.2); Basophils % (auto) 0.6 % (0.0-2.0); Eosinophils # (auto) 0.1 10 ^3/uL (0-0.8); Eosinophils % (auto) 1.9 % (0.0-7.0); Hematocrit 37.5 % (36.0-46.0); Hemoglobin 12.1 g/dL (12.2-16.2); Lymphocytes # (auto) 1.1 10 ^3/uL (0.4-5.4); Lymphocytes % (auto) 25.3 % (10.0-50.0); Mean Corpuscular Hemoglobin 31.1 pg (28.0-32.0); Mean Corpuscular Hgb Conc. 32.2 g/dL (32.0-36.0); Mean Corpuscular Volume 96.6 fL (80.0-100.0); Monocytes # (auto) 0.3 10 ^3/uL (0-1.3); Monocytes % (auto) 6.8 % (0.0-12.0); Neutrophils # (auto) 2.8 10 ^3/uL (1.6-8.6); Neutrophils % (auto) 65.4 % (37.0-80.0); Platelet Count (auto) 179 10^3/uL (140-450); Red Blood Cells 3.88 10^6/uL (4.0-5.20); Red Cell Distribution Width 14.8 % (11.8-14.3); White Blood Cell 4.3 10^3/uL (4.4-10.8)
[2019-10-14 18:48] LABS: INR 1.04 (0.9-1.15); Partial Thromboplastin Time 27.6 sec (23.64-32.05)
[2019-10-14 18:51] LABS: Albumin 3.3 g/dL (3.4-5.0); Amylase 70 U/L (25-115); Anion Gap 7 (5-15); Blood Urea Nitrogen 17 mg/dL (7-18); Calcium 8.6 mg/dL (8.5-10.1); Carbon Dioxide 18 mmol/L (21-32); Chloride 115 mmol/L (98-107); Glucose 111 mg/dL (74-106); Lipase 137 U/L (73-393); Potassium 4.4 mmol/L (3.5-5.1); Sodium 140 mmol/L (136-145)
[2019-10-14 19:00] LABS: Alanine Aminotransferase 307 U/L (13-56); Alkaline Phosphatase 231 U/L (45-117); Aspartate Aminotransferase 331 U/L (15-37); Bilirubin, Total 0.4 mg/dL (0.2-1.0); GFR African American 42 mL/min; GFR Non-African American 35 mL/min; Total Protein 7.6 g/dL (6.4-8.2)
[2019-10-14 19:13] LABS: Urine Bacteria FEW /hpf (None Seen); Urine Blood 3+ /uL (Negative); Urine Hyaline Cast FEW /lpf (0 - 2); Urine Specific Gravity 1.012 (1.001-1.035); Urine WBC 17 /hpf (0 - 5)
[2019-10-14] MEDS ORDERED: cefTRIAXone 1GM/50ML D5W 50 ML IV ONE (20:15)
[2019-10-14] MEDS ORDERED: TEMAZEPAM 15 MG CAP PO PRN (22:30)
[2019-10-14] MEDS: SODIUM CHLORIDE 0.9% 1,000 ML IV SCH (22:44)
--- NOTE | 2019-10-14 23:10 | NUR ---
received pt from er nurse poc reviewed
[2019-10-14 23:59] VITALS: BP 129/70
[2019-10-15] MEDS: ONDANSETRON HCL 4 MG/2 ML VIAL IV PRN ×2 (00:16→06:00)
[2019-10-15] MEDS: MORPHINE SULFATE 4 MG/ML SYR/VIAL IV PRN ×5 (00:16→20:22)
--- NOTE | 2019-10-15 00:25 | NUR ---
pt is npo discussed poc with pt
--- NOTE | 2019-10-15 03:47 | NUR ---
resting comfortable with hob up resp even and unlabored pain relieved with med given, call light within reach, bed alarm intact,
[2019-10-15 05:00] VITALS: BP 103/60
[2019-10-15 06:30] LABS: Basophils # (auto) 0 10 ^3/uL (0-0.2); Basophils % (auto) 0.4 % (0.0-2.0); Eosinophils # (auto) 0.1 10 ^3/uL (0-0.8); Eosinophils % (auto) 2.2 % (0.0-7.0); Hematocrit 31.9 % (36.0-46.0); Hemoglobin 10.5 g/dL (12.2-16.2); Lymphocytes # (auto) 1.2 10 ^3/uL (0.4-5.4); Lymphocytes % (auto) 27.4 % (10.0-50.0); Mean Corpuscular Hemoglobin 31.9 pg (28.0-32.0); Mean Corpuscular Hgb Conc. 32.9 g/dL (32.0-36.0); Mean Corpuscular Volume 96.9 fL (80.0-100.0); Monocytes # (auto) 0.3 10 ^3/uL (0-1.3); Neutrophils # (auto) 2.9 10 ^3/uL (1.6-8.6); Nucleated Red Blood Cells % 0.2 %; Platelet Count (auto) 140 10^3/uL (140-450); Red Blood Cells 3.29 10^6/uL (4.0-5.20); Red Cell Distribution Width 14.4 % (11.8-14.3); White Blood Cell 4.5 10^3/uL (4.4-10.8)
[2019-10-15 06:49] LABS: Albumin 2.9 g/dL (3.4-5.0); Calcium 8.3 mg/dL (8.5-10.1); Potassium 4.6 mmol/L (3.5-5.1)
--- NOTE | 2019-10-15 06:49 | NUR ---
report given to am nurse poc reviewed
[2019-10-15 06:53] LABS: BUN/Creatinine Ratio 11.5; Bilirubin, Total 0.3 mg/dL (0.2-1.0); Total Protein 6.5 g/dL (6.4-8.2)
--- NOTE | 2019-10-15 07:06 | NUR ---
Opening Shift Note Assumed care of patient, awake and alert. No S/S of distress/SOB or pain. Instructed on POC and to call for assist PRN, will continue to monitor for changes Q1hr and PRN. Bed is set in lowest locked position with side rails up x 2 for safety and call light is within reach.
[2019-10-15 08:00] VITALS: BP 108/51
[2019-10-15] MEDS: cefTRIAXone 1GM/50ML D5W 50 ML IV SCH (09:13)
[2019-10-15 09:32] VITALS: BP 108/51
[2019-10-15] MEDS ORDERED: PANTOPRAZOLE 40 MG/10 ML VIAL INJ IV SCH (10:00)
[2019-10-15] MEDS: SODIUM CHLORIDE 0.9% 1,000 ML IV SCH ×2 (10:52→22:50)
--- NOTE | 2019-10-15 11:55 | NUR ---
Spoke to MD Ann Per MD, administer lactulose x 3 doses if constipation persists, if constipation is not resolved after lactulose administration, perform tap water enema as ordered.
[2019-10-15] MEDS: LACTULOSE 20Gm/30ML SOLN PO PRN ×3 (12:25→23:42)
[2019-10-15 12:27] VITALS: BP 107/58
--- NOTE | 2019-10-15 14:01 | NUR ---
Capellan catheter dc'd Order to discontinue capellan catheter. Capellan dc'd with clean technique following deflation of balloon. Total urine output 1000 mls. Patient tolerated well with no complaints of pain. Continue care.
[2019-10-15 16:31] VITALS: BP 95/47
[2019-10-15] MEDS ORDERED: LISI-646 PO (18:21)
[2019-10-15] MEDS ORDERED: CLOP75TA41 PO (18:21)
--- NOTE | 2019-10-15 19:20 | NUR ---
Opening note Assumed care of patient. Patient alert and orientated x4, No SOB or distress noted at this time. POC reviewed. Patient requesting pain meds. Administered per orders. Bed in lowest position and locked. Bed alarm on side rails up x2. Call light within reach. Will continue to monitor.
[2019-10-15] MEDS: PANTOPRAZOLE 40 MG TAB PO SCH (21:36)
[2019-10-15 22:00] VITALS: BP 98/57
[2019-10-16] VITALS (7 sets, daily range): BP systolic 101–140; BP diastolic 49–74
[2019-10-16] MEDS: MORPHINE SULFATE 4 MG/ML SYR/VIAL IV PRN ×3 (00:34→12:07)
--- NOTE | 2019-10-16 03:05 | NUR ---
Patient to bathroom Helped patient to use the toilet. No distress noted. Patient states no pain in abdomen or anywhere else. No bowel movement at this time. Explained enema could be given. Patient states not at this time. Will continue to monitor.
--- NOTE | 2019-10-16 07:23 | NUR ---
Closing Note Report given to DAY shift RN Patient shows no signs of distress or SOB noted.
--- NOTE | 2019-10-16 07:30 | NUR ---
Opening Shift Note Assumed care of patient, awake and alert. No S/S of distress/SOB or pain. Instructed on POC and to call for assist PRN, will continue to monitor for changes Q1hr and PRN. Fall precautions in place per safety protocol.
[2019-10-16 07:41] LABS: Albumin 2.6 g/dL (3.4-5.0); Potassium 3.5 mmol/L (3.5-5.1)
[2019-10-16 07:45] LABS: BUN/Creatinine Ratio 10.5; Bilirubin, Total 0.3 mg/dL (0.2-1.0); Total Protein 6.1 g/dL (6.4-8.2)
[2019-10-16] MEDS: cefTRIAXone 1GM/50ML D5W 50 ML IV SCH (09:52)
[2019-10-16] MEDS: PANTOPRAZOLE 40 MG TAB PO SCH ×2 (09:52→22:13)
--- NOTE | 2019-10-16 10:00 | NUR ---
ENEMA Water Enema done at bedside. Patient tolerated well. Will cont to monitor patient.
[2019-10-16] MEDS ORDERED: POTASSIUM EFFERVESENT TAB 25 MEQ PO ONE (10:15)
[2019-10-16] MEDS: ONDANSETRON HCL 4 MG/2 ML VIAL IV PRN (12:08)
--- NOTE | 2019-10-16 12:10 | NUR ---
PAIN PATIENT REQUESTING PAIN MEDICATION FOR PAIN 10/10. ADMINISTERED MORPHINE PER PAIN SCALE. WILL CONT TO MONITOR PATIENT.
--- NOTE | 2019-10-16 12:45 | NUR ---
Enema Enema done. Patient tolerated well. Will cont to monitor patient. Previous enema, patient had a very small BM.
[2019-10-16] MEDS: METOCLOPRAMIDE HCL 5MG/ml INJ 2ml VIAL IV SCH ×2 (13:56→22:12)
[2019-10-16] MEDS: SODIUM CHLORIDE 0.9% 1,000 ML IV SCH (13:57)
[2019-10-16] MEDS ORDERED: MAGNESIUM CITRATE SOLUTION 300 ML BTL PO ONE (14:45)
--- NOTE | 2019-10-16 18:15 | NUR ---
BM PATIENT HAD SMALL BOWEL MOVEMENT. WILL CONT TO MONITOR PATIENT.
[2019-10-16] MEDS: traMADol HCL 50 MG TAB PO PRN ×2 (18:46→22:13)
--- NOTE | 2019-10-16 18:46 | NUR ---
PAIN PATIENT REQUESTING PAIN MEDICATION FOR PAIN /10. ADMINISTERED TRAMADOL PER PAIN SCALE. WILL CONT TO MONITOR PATIENT.
--- NOTE | 2019-10-16 19:15 | NUR ---
Opening note Assumed care of patient. Patient alert and orientated x4. No SOB or distress noted at this time. POC reviewed with daughter after obtaining password over telephone and with Patient. Patient verbalized understanding. Bed locked and in lowest position. Side rails up x2. Call light within reach. Will continue to monitor.
[2019-10-16] MEDS: METOPROLOL TARTRATE 25 MG TAB PO SCH (22:14)
--- NOTE | 2019-10-17 01:54 | NUR ---
Bowel Movement. Assisted patient to the bathroom. Very Small amount of bowel movement present. Patient now resting in bed. Will continue to monitor.
[2019-10-17] MEDS: SODIUM CHLORIDE 0.9% 1,000 ML IV SCH ×2 (03:50→18:16)
[2019-10-17] MEDS: traMADol HCL 50 MG TAB PO PRN ×3 (04:07→18:16)
[2019-10-17 05:00] VITALS: BP 115/62
[2019-10-17] MEDS: METOCLOPRAMIDE HCL 5MG/ml INJ 2ml VIAL IV SCH ×3 (05:08→22:00)
--- NOTE | 2019-10-17 07:17 | NUR ---
Closing note Gave report to day shift RN. Patient no SOB OR distress noted.
--- NOTE | 2019-10-17 07:29 | NUR ---
Closing note Endorsed care to day shift RN. No SOB OR distress noted on patient.
--- NOTE | 2019-10-17 07:30 | NUR ---
Opening Shift Note: Assumed care of patient, awake and alert. No S/S of distress/SOB or pain. Bed in lowest locked position, side rails up x 2, call light within reach. Patient instructed on POC and to call for assist PRN, will continue to monitor for changes Q1hr and PRN.
--- NOTE | 2019-10-17 07:47 | NUR ---
Patient ambulated to the bathroom with standby assistance. Patient back to bed, patient tolerated well.
[2019-10-17 08:01] LABS: Albumin 2.8 g/dL (3.4-5.0); Calcium 8.3 mg/dL (8.5-10.1); Potassium 3.7 mmol/L (3.5-5.1)
[2019-10-17 08:07] LABS: BUN/Creatinine Ratio 8.3; Bilirubin, Total 0.3 mg/dL (0.2-1.0); Total Protein 6.6 g/dL (6.4-8.2)
[2019-10-17 09:00] VITALS: BP 111/61
[2019-10-17] MEDS: cefTRIAXone 1GM/50ML D5W 50 ML IV SCH (09:39)
[2019-10-17] MEDS: POTASSIUM EFFERVESENT TAB 25 MEQ PO SCH (09:41)
[2019-10-17] MEDS: ALLOPURINOL 100 MG TAB PO SCH (09:42)
[2019-10-17] MEDS: amLODIPine BESYLATE 5 MG TAB PO SCH (09:44)
[2019-10-17] MEDS: PANTOPRAZOLE 40 MG TAB PO SCH ×2 (09:44→22:12)
[2019-10-17] MEDS: METOPROLOL TARTRATE 25 MG TAB PO SCH ×2 (09:45→22:13)
[2019-10-17 13:00] VITALS: BP 117/63
--- NOTE | 2019-10-17 13:03 | NUR ---
DR. PARADA: Dr. Salomon at bedside.
[2019-10-17 17:00] VITALS: BP 112/49
--- NOTE | 2019-10-17 18:53 | NUR ---
CLOSING NOTE: Patient resting in bed. No S/S of pain, distress or SOB at this time. Care endorsed to NOC RN
[2019-10-17 22:40] VITALS: BP 122/66
[2019-10-18] MEDS: traMADol HCL 50 MG TAB PO PRN ×3 (04:30→20:27)
[2019-10-18 05:00] VITALS: BP 119/64
[2019-10-18] MEDS: METOCLOPRAMIDE HCL 5MG/ml INJ 2ml VIAL IV SCH (06:00)
[2019-10-18] MEDS: SODIUM CHLORIDE 0.9% 1,000 ML IV SCH ×2 (06:12→19:50)
[2019-10-18 06:51] LABS: Calcium 8.2 mg/dL (8.5-10.1); Potassium 4.1 mmol/L (3.5-5.1)
[2019-10-18 06:54] LABS: % Iron Saturation 30.8 % (15-50)
[2019-10-18 06:56] LABS: BUN/Creatinine Ratio 11.2; Bilirubin, Total 0.3 mg/dL (0.2-1.0); Total Protein 6.8 g/dL (6.4-8.2)
--- NOTE | 2019-10-18 07:25 | NUR ---
Opening Shift Note: Assumed care of patient, awake and alert. No S/S of distress/SOB or pain. Bed in lowest locked position, side rails up x 2, call light within reach. Bed alarm activated for patient safety. Patient instructed on POC and to call for assist PRN, will continue to monitor for changes Q1hr and PRN.
[2019-10-18 09:00] VITALS: BP 98/51
[2019-10-18] MEDS: METOPROLOL TARTRATE 25 MG TAB PO SCH ×2 (09:35→23:08)
[2019-10-18] MEDS: amLODIPine BESYLATE 5 MG TAB PO SCH (09:36)
[2019-10-18] MEDS: POTASSIUM EFFERVESENT TAB 25 MEQ PO SCH (09:45)
[2019-10-18] MEDS: PANTOPRAZOLE 40 MG TAB PO SCH ×2 (09:45→23:08)
[2019-10-18] MEDS: cefTRIAXone 1GM/50ML D5W 50 ML IV SCH (09:45)
[2019-10-18] MEDS: ALLOPURINOL 100 MG TAB PO SCH (09:46)
--- NOTE | 2019-10-18 12:46 | NUR ---
Est energy needs 5645-4690 kcal (25-30 kcal/kg IBW 59.1kg) Est protein needs 59-71g (1-1.2g/kg IBW 59.1 kg r/t underwt) Will reassess prn. Addendum: 10/18/19 at [address] Amended: Links added.
[2019-10-18 14:38] VITALS: BP 124/61
[2019-10-18 16:38] VITALS: BP 116/64
--- NOTE | 2019-10-18 18:53 | NUR ---
CLOSING NOTE: Patient laying in bed. No S/S of distress at this time. Care endorsed.
[2019-10-18 22:00] VITALS: BP 130/87
--- NOTE | 2019-10-19 01:53 | NUR ---
IV insertion IV access obtained, via clean sterile technique by inserting 22 gauge catheter at LEFT HAND after 1 attempt(s). IV secured properly. No trauma to site. Patient tolerated well. IV TO L HAND DC'D DUE TO INFILTRATION. NOTE:
--- NOTE | 2019-10-19 03:10 | NUR ---
CONTINUATION OF CARE: Patient resting in bed. No S/S of pain, distress or SOB. Bed in lowest locked position, side rails up x 2, call light within reach. Bed alarm activated for patient safety. Will continue to educated patient of POC.
[2019-10-19] MEDS: traMADol HCL 50 MG TAB PO PRN ×3 (04:03→23:57)
[2019-10-19 06:34] LABS: Basophils # (auto) 0 10 ^3/uL (0-0.2); Basophils % (auto) 0.3 % (0.0-2.0); Eosinophils # (auto) 0.1 10 ^3/uL (0-0.8); Eosinophils % (auto) 1.3 % (0.0-7.0); Hematocrit 30.2 % (36.0-46.0); Lymphocytes # (auto) 1.5 10 ^3/uL (0.4-5.4); Lymphocytes % (auto) 30.2 % (10.0-50.0); Mean Corpuscular Hemoglobin 31.7 pg (28.0-32.0); Mean Corpuscular Volume 96.2 fL (80.0-100.0); Monocytes # (auto) 0.3 10 ^3/uL (0-1.3); Monocytes % (auto) 6.6 % (0.0-12.0); Neutrophils # (auto) 3.2 10 ^3/uL (1.6-8.6); Neutrophils % (auto) 61.6 % (37.0-80.0); Nucleated Red Blood Cells % 0.1 %; Platelet Count (auto) 182 10^3/uL (140-450); Red Blood Cells 3.13 10^6/uL (4.0-5.20); Red Cell Distribution Width 14.7 % (11.8-14.3); White Blood Cell 5.1 10^3/uL (4.4-10.8)
[2019-10-19 06:49] LABS: INR 1.01 (0.9-1.15); Partial Thromboplastin Time 26.5 sec (23.64-32.05)
[2019-10-19 07:04] LABS: Albumin 2.9 g/dL (3.4-5.0); BUN/Creatinine Ratio 15.6; Bilirubin, Total 0.3 mg/dL (0.2-1.0); Calcium 8.3 mg/dL (8.5-10.1); Magnesium 2.8 mg/dL (1.6-2.6); Phosphorus 1.3 mg/dL (2.5-4.90); Total Protein 6.8 g/dL (6.4-8.2)
[2019-10-19 08:49] VITALS: BP 101/57
[2019-10-19] MEDS: SODIUM CHLORIDE 0.9% 1,000 ML IV SCH (09:10)
[2019-10-19 09:29] VITALS: BP 101/57
[2019-10-19] MEDS: cefTRIAXone 1GM/50ML D5W 50 ML IV SCH (09:32)
[2019-10-19] MEDS: POTASSIUM EFFERVESENT TAB 25 MEQ PO SCH (09:33)
[2019-10-19] MEDS: PANTOPRAZOLE 40 MG TAB PO SCH ×2 (09:33→22:43)
[2019-10-19] MEDS: amLODIPine BESYLATE 5 MG TAB PO SCH (09:33)
[2019-10-19] MEDS: METOPROLOL TARTRATE 25 MG TAB PO SCH ×2 (09:34→22:44)
[2019-10-19 11:03] LABS: Hepatitis B Surface Antibody Negative
[2019-10-19] MEDS: MORPHINE SULF INJ 2 MG/ML SYRINGE 1ML IV PRN ×2 (11:24→20:48)
[2019-10-19 11:30] LABS: Hepatitis A Total Antibody Positive
[2019-10-19 13:00] VITALS: BP 136/69
[2019-10-19 13:13] LABS: Hepatitis B Core Total AB Negative; Hepatitis B Surface Antigen Negative (Negative); Hepatitis C Antibody Negative (Negative)
[2019-10-19 16:51] VITALS: BP 109/57
--- NOTE | 2019-10-19 18:52 | NUR ---
CLOSING NOTE: Patient laying in bed. No S/S of distress or SOB. Care endorsed.
[2019-10-19 22:00] VITALS: BP 122/74
[2019-10-20 05:00] VITALS: BP 113/59
[2019-10-20] MEDS: MORPHINE SULF INJ 2 MG/ML SYRINGE 1ML IV PRN ×2 (05:50→20:29)
[2019-10-20 06:00] LABS: Albumin 2.9 g/dL (3.4-5.0); Potassium 3.9 mmol/L (3.5-5.1)
[2019-10-20 06:05] LABS: BUN/Creatinine Ratio 16.8; Bilirubin, Total 0.2 mg/dL (0.2-1.0); Total Protein 6.7 g/dL (6.4-8.2)
[2019-10-20 09:00] VITALS: BP 113/76
[2019-10-20] MEDS: POTASSIUM EFFERVESENT TAB 25 MEQ PO SCH (09:31)
[2019-10-20] MEDS: amLODIPine BESYLATE 5 MG TAB PO SCH (09:32)
[2019-10-20] MEDS: METOPROLOL TARTRATE 25 MG TAB PO SCH ×2 (09:32→21:59)
[2019-10-20] MEDS: PANTOPRAZOLE 40 MG TAB PO SCH ×2 (09:33→21:59)
--- NOTE | 2019-10-20 11:47 | NUR ---
Patient ambulated to the bath room, standby assist, tolerated well.
[2019-10-20 12:42] VITALS: BP 112/57
[2019-10-20] MEDS: FOLIC ACID 1 MG, MULTIPLE VITAMIN 10 ML, MAGNESIUM SULF SDV 50% 8 MEQ, THIAMINE INJ 100... INJ SCH ×5 (12:45)
[2019-10-20] MEDS: traMADol HCL 50 MG TAB PO PRN ×2 (12:51→21:59)
[2019-10-20 17:13] VITALS: BP 101/55
--- NOTE | 2019-10-20 19:27 | NUR ---
CLOSING NOTE: Patient resting in bed. No S/S of pain, or distress at this time. Care endorsed to NOC RN
[2019-10-20 21:54] VITALS: BP 108/57
[2019-10-21] MEDS: MORPHINE SULF INJ 2 MG/ML SYRINGE 1ML IV PRN ×5 (01:08→21:55)
[2019-10-21 05:05] VITALS: BP 117/61
[2019-10-21] MEDS: traMADol HCL 50 MG TAB PO PRN ×3 (06:44→20:46)
--- NOTE | 2019-10-21 07:35 | NUR ---
Opening Shift Note: Assumed care of patient, awake and alert. No S/S of distress/SOB or pain. Bed in lowest locked position, side rails up x 2, call light within reach. Safety precautions in place.Patient instructed on POC and to call for assist PRN, will continue to monitor for changes Q1hr and PRN.
[2019-10-21 07:48] LABS: Albumin 2.7 g/dL (3.4-5.0); Calcium 8.3 mg/dL (8.5-10.1); Potassium 3.9 mmol/L (3.5-5.1)
[2019-10-21 07:51] LABS: BUN/Creatinine Ratio 16.1; Bilirubin, Total 0.1 mg/dL (0.2-1.0); Total Protein 6.3 g/dL (6.4-8.2)
[2019-10-21] MEDS: METOPROLOL TARTRATE 25 MG TAB PO SCH (09:28)
[2019-10-21] MEDS: amLODIPine BESYLATE 5 MG TAB PO SCH (09:29)
[2019-10-21] MEDS: PANTOPRAZOLE 40 MG TAB PO SCH ×2 (09:29→21:40)
[2019-10-21 09:40] VITALS: BP 100/48
[2019-10-21] MEDS: FOLIC ACID 1 MG, MULTIPLE VITAMIN 10 ML, MAGNESIUM SULF SDV 50% 8 MEQ, THIAMINE INJ 100... INJ SCH ×5 (12:13)
[2019-10-21] MEDS ORDERED: GOLYTELY 4L KIT PO ONE (12:30)
[2019-10-21 12:56] VITALS: BP 125/67
[2019-10-21] MEDS ORDERED: LORazepam 2MG/ML-1ML VIAL IV PRN (13:45)
--- NOTE | 2019-10-21 14:40 | NUR ---
Nutrition Followup Note Wt: 44.0 Kg Pt was sleeping with no family by bedside. pt with no distress noted. pt is currently NPO for procedure. Est energy needs 6862-3059 kcal (25-30 kcal/kg IBW 59.1kg) Est protein needs 59-71g (1-1.2g/kg IBW 59.1 kg r/t underwt) Will reassess prn. Labs: ALB 2.7 L, CREAT 1.12 H, CA 8.3 L. Skin: BS 23 low risk BM: Pt had 1 BM on 10/17 RN doc PES: Underweight aeb 70% of IBW and BMI of 15.6 kg/m2 r/t intake less than needs Rec: 1) advance diet as medically feasible. 2) consider alternate nutrition support if pt NPO > 48 hrs. 3) Continue current plan of care. F/u mod 2-3 days
[2019-10-21] MEDS ORDERED: HYDROmorphone HCL 2 MG/ML VL IV ONE (15:30)
--- NOTE | 2019-10-21 15:30 | NUR ---
IV removal IV DC'd with clean sterile technique, catheter fully intact. Pressure dressing applied to site. Patient tolerated well. NOTE: [IV INFILTRATED]
[2019-10-21] MEDS ORDERED: GASTROGRAFIN 120 ML SOL ONE (15:36)
--- NOTE | 2019-10-21 16:00 | NUR ---
PATIENT TAKEN DOWN FOR SMALL BOWEL SERIES NO DISTRESS NOTED.
[2019-10-21 17:23] VITALS: BP 120/69
--- NOTE | 2019-10-21 17:34 | NUR ---
PATIENT RETURNED FROM RADIOLOGY PER PRESS DEPARTMENT MANAGER, PROCEDURE IS NOT COMPLETED. WILL BE BACK IN 1-2HR TO TAKE BACK TO RADIOLOGY.
--- NOTE | 2019-10-21 18:55 | NUR ---
CLOSING NOTE PATIENT SITTING UP IN BED, NO S/S OF DISTRESS/SOB, PATIENT HAS ABDOMINAL PAIN AT THIS TIME, UPDATED THAT PAIN MEDICATION IS UNAVAILABLE AT THIS TIME. WILL ENDORSE CARE TO AUTOMOTIVE PARTS COUNTER ASSISTANT RN.
--- NOTE | 2019-10-21 19:15 | NUR ---
OPENING SHIFT NOTE Assumed care of patient who is A&O x4. Speaks minimal Hebrew- primary language is Tristanian. Currently on RA with no s/s of distress. Reports 10/10 pain in lower left and right quadrants. Pain management options discussed. POC discussed with patient and patient's daughter. Patient to be NPO for scheduled EGD and colonoscopy with Dr. Ann 10/22/19. Bed is in low locked position with side rails up x2. Call light is within reach and patient encouraged to call for assistance when needed.
[2019-10-21 20:00] VITALS: BP 99/63
--- NOTE | 2019-10-21 20:28 | NUR ---
Phone call Received call from Dr. Nair regarding consult. states that he will come to see the patient following her procedure with Dr. Ann tomorrow.
--- NOTE | 2019-10-21 20:46 | NUR ---
PAIN Patient reports 10/10 lower abdominal pain. Ultram administered due to Morphine not yet due.
--- NOTE | 2019-10-21 21:00 | NUR ---
Patient given Golytely and experienced one episode of vomiting. Emesis is approximately 200ml of thin and clear yellow in color.
[2019-10-21 22:00] VITALS: BP 99/63
--- NOTE | 2019-10-21 23:45 | NUR ---
PAIN Patient reports 02/26 lower abdominal pain. No pain medication is due at this time. Patient provide heat packs to help alleviate pain. Hospitalist paged to notify that current pain relief regimen is ineffective. Awaiting call back. Addendum: 10/22/19 at 0019 by MONROE MISTRY RN RN Patient also experienced 250ml of thin clear yellow emesis at this time.
[2019-10-22] MEDS: D5W/SOD CHL 0.45%/KCL 20MEQ 1,000 ML IV SCH ×3 (00:01→21:53)
--- NOTE | 2019-10-22 02:00 | NUR ---
PAIN/VOMITING Patient requests pain medication. BP assessed prior to administration and is 139/73, hr 111. Morphine 1mg administered as ordered. Patient attempting to drink Golytely and experienced another episode of vomiting of clear yellow fluid. Patient is not tolerating bowel prep and is unable to keep any of it down.
[2019-10-22] MEDS: MORPHINE SULF INJ 2 MG/ML SYRINGE 1ML IV PRN ×6 (02:03→21:26)
--- NOTE | 2019-10-22 02:47 | NUR ---
HOSPITALIST Spok with Hospitalist Woody Ames NP regarding patient not tolerating bowel prep and repeated vomiting. New orders received, read back and verified.
[2019-10-22] MEDS ORDERED: PROMETHAZINE HCL 25 MG/ML 1ML IM ONE (03:00)
[2019-10-22 04:39] VITALS: BP 111/82
[2019-10-22] MEDS ORDERED: GOLYTELY 4L KIT PO ONE (06:00)
[2019-10-22 06:16] LABS: Albumin 3.1 g/dL (3.4-5.0); Calcium 8.7 mg/dL (8.5-10.1); Potassium 4.5 mmol/L (3.5-5.1)
[2019-10-22 06:22] LABS: BUN/Creatinine Ratio 16.1; Bilirubin, Total 0.4 mg/dL (0.2-1.0); Total Protein 7.3 g/dL (6.4-8.2)
[2019-10-22] MEDS ORDERED: SODIUM CHLORIDE LOCK 10 ML ONE (08:24)
[2019-10-22] MEDS ORDERED: fentaNYL CITRATE 100 MCG/2 ML VL ONE (08:25)
[2019-10-22] MEDS ORDERED: diphenhdrAMINE HCL 50 MG/1 ML VL ONE (08:25)
[2019-10-22] MEDS ORDERED: MIDAZOLAM HCL 5 MG/ML-1ML VIAL ONE (08:25)
--- NOTE | 2019-10-22 08:50 | NUR ---
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 She vomited several times before giving up on it completey. Only 1/4 of the bottle was consumed and I am not sure how much the patient actually took in. The patient did not have a bowel movement last night. Called the GI Lab this AM and then left a Message for Dr. Ann requesting new orders. Will continue to monitor.
--- NOTE | 2019-10-22 08:53 | NUR ---
MRCP [facility] called this AM stating they could not complete the MRCP on the patient as she has an implanted nerve stimulator. Dr. So was made aware of the situation.
[2019-10-22 09:00] VITALS: BP 132/71
[2019-10-22] MEDS: PANTOPRAZOLE 40 MG TAB PO SCH (10:22)
[2019-10-22] MEDS: traMADol HCL 50 MG TAB PO PRN ×2 (12:12→23:00)
[2019-10-22 13:00] VITALS: BP 121/95
[2019-10-22] MEDS ORDERED: MINERAL OIL 30 ML PO ONE (15:30)
--- NOTE | 2019-10-22 16:47 | NUR ---
Enema given The patient was given a tap water enema at approximately 1500hrs. She held it for about 30mins and had a large BM. She felt immediate relief after that as well. She fell asleep shortly afterwards. No visible signs of pain noted. Will continue to monitor.
[2019-10-22 17:00] VITALS: BP 146/86
--- NOTE | 2019-10-22 19:15 | NUR ---
OPENING SHIFT NOTE Assumed care of patient who is A&O x4. Currently on RA with no s/s of distress. Patient reports 9/10 epigastric pain. Pain management options discussed. Patient remains NPO at this time. POC discussed with patient and patient's daughter, who verbalizes understanding. PIV in right upper arm is intact and patent. IVF infusing as ordered. Bed is in low locked position with side rails up x2. Call light is within reach and patient encouraged to call for assistance when needed. Will continue to monitor for changes PRN.
[2019-10-22 20:00] VITALS: BP 114/70
[2019-10-22 22:00] VITALS: BP 114/70
[2019-10-23] MEDS: MORPHINE SULF INJ 2 MG/ML SYRINGE 1ML IV PRN ×3 (01:09→08:50)
[2019-10-23 05:00] VITALS: BP 117/77
[2019-10-23] MEDS: D5W/SOD CHL 0.45%/KCL 20MEQ 1,000 ML IV SCH (05:53)
[2019-10-23 06:32] LABS: Albumin 2.9 g/dL (3.4-5.0); Calcium 8.5 mg/dL (8.5-10.1); Potassium 3.9 mmol/L (3.5-5.1)
[2019-10-23 06:37] LABS: BUN/Creatinine Ratio 11.2; Bilirubin, Total 0.4 mg/dL (0.2-1.0); Total Protein 7.1 g/dL (6.4-8.2)
--- NOTE | 2019-10-23 07:30 | NUR ---
Opening Shift Note Assumed care of patient, awake and alert. No S/S of distress/SOB or pain. Bed in lowest and locked position with side rails up x2 and call light in reach. Instructed on POC and to call for assist PRN, will continue to monitor for changes Q1hr and PRN.
[2019-10-23 08:00] VITALS: BP_SYST 117; BP_SYST 153; BP_DIAS 68; BP_DIAS 85
[2019-10-23 08:10] VITALS: BP 117/68
--- NOTE | 2019-10-23 08:50 | NUR ---
PATIENT RATED PAIN AT A 10/10. PATIENT WAS GIVEN MORPHINE FOR PAIN.
[2019-10-23] MEDS ORDERED: PANTOPRAZOLE 40 MG/10 ML VIAL INJ IV SCH (10:00)
--- NOTE | 2019-10-23 11:20 | NUR ---
SPOKE TO DR. BARRIOS. NEW ORDERS RECEIVED, READ BACK AND VERIFIED. SEE EMR FOR ORDERS.
--- NOTE | 2019-10-23 11:30 | NUR ---
TAP WATER ENEMA INITIATED. PATIENT HAD SMALL BM.
[2019-10-23] MEDS ORDERED: ACETAMINOPHEN 325 MG TAB PO PRN (11:45)
[2019-10-23] MEDS ORDERED: SOD CHL 0.9%/ KCL 20MEQ 1,000 ML IV SCH ×2 (11:45→15:45)
[2019-10-23 12:00] VITALS: BP 121/78
[2019-10-23] MEDS: LACTULOSE 20Gm/30ML SOLN PO SCH ×3 (12:00→23:48)
[2019-10-23] MEDS: traMADol HCL 50 MG TAB PO PRN (13:14)
--- NOTE | 2019-10-23 14:14 | NUR ---
PATIENT RATED PAIN AT A 8/10. RN EDUCATED THE PATIENT THAT THE MD HAD CANCELLED THE MORPHINE. RN ADMINISTERED TRAMADOL.
--- NOTE | 2019-10-23 14:24 | NUR ---
Nutrition Followup Note Wt: 44.0 Kg Pt currently NPO 10/21 and 10/22. Prior to NPO status pt intake was inadequate aeb pt po intake of 60% 10/18-10/20 per RN doc. Will continue to monitor po status and intake. Est energy needs [id number] kcal (25-30 kcal/kg IBW 59.1kg) Est protein needs 59-71g (1-1.2g/kg IBW 59.1 kg r/t underwt) Will reassess prn. Labs: Glu 159H, AST, 133H, ALT 142H, Alb 2.9L Skin: BS 19 low risk BM: Pt had small BM following enema 10/22 PES: Underweight aeb 70% of IBW and BMI of 15.6 kg/m2 r/t intake less than needs Rec: 1) advance diet as medically feasible. 2) consider alternate nutrition support if pt NPO > 48 hrs. 3) Continue current plan of care. F/u mod 2-3 days
[2019-10-23] MEDS ORDERED: KETOROLAC TROMETH 30 MG/ML 1ML VIAL IV PRN (14:30)
--- NOTE | 2019-10-23 14:50 | NUR ---
PATIENT CONTINUES TO STATE THAT SHE HAS PAIN AT A 10/10 WITH NAUSEA AND VOMITING. RN PAGED DR. BARRIOS REGARDING PAIN MEDICATIONS AND NAUSEA MEDICATIONS. MD AWARE AND NO NEW ORDERS RECEIVED AT THIS TIME.
[2019-10-23] MEDS: ONDANSETRON HCL 4 MG/2 ML VIAL IV PRN (15:03)
--- NOTE | 2019-10-23 15:03 | NUR ---
PATIENT COMPLAINTS OF NAUSEA AND RATED PAIN AT 10/10. PATIENT GIVEN TORDOL AND ZOFRAN FOR PAIN AND NAUSEA.
--- NOTE | 2019-10-23 15:45 | NUR ---
Pt states she is in pain and does not want physical therapy right now. Will attempt again later.
--- NOTE | 2019-10-23 16:00 | NUR ---
SPOKE TO DR. BARRIOS. NEW ORDERS RECEIVED, READ BACK AND VERIFIED. PER DR. BARRIOS RN TO PLACE NG TUBE AND PATIENT WILL HAVE A SURGICAL PROCEDURE TONIGHT.
--- NOTE | 2019-10-23 16:30 | NUR ---
Nasogastric tube insertion Patient educated on need for NG tube. All questions addressed. NGT inserted per MD order. Placement verified by aspiration of stomach contents and auscultation. NG marking at 63.
[2019-10-23 16:42] VITALS: BP 101/56
[2019-10-23 16:43] LABS: Basophils # (auto) 0 10 ^3/uL (0-0.2); Basophils % (auto) 0.2 % (0.0-2.0); Eosinophils # (auto) 0.1 10 ^3/uL (0-0.8); Eosinophils % (auto) 1.3 % (0.0-7.0); Hematocrit 33.2 % (36.0-46.0); Hemoglobin 11.1 g/dL (12.2-16.2); Lymphocytes # (auto) 1.2 10 ^3/uL (0.4-5.4); Lymphocytes % (auto) 13.1 % (10.0-50.0); Mean Corpuscular Hemoglobin 32.6 pg (28.0-32.0); Mean Corpuscular Hgb Conc. 33.4 g/dL (32.0-36.0); Mean Corpuscular Volume 97.5 fL (80.0-100.0); Monocytes # (auto) 0.6 10 ^3/uL (0-1.3); Monocytes % (auto) 6.5 % (0.0-12.0); Neutrophils # (auto) 7.4 10 ^3/uL (1.6-8.6); Neutrophils % (auto) 78.9 % (37.0-80.0); Nucleated Red Blood Cells % 0.2 %; Platelet Count (auto) 228 10^3/uL (140-450); Red Cell Distribution Width 15.3 % (11.8-14.3); White Blood Cell 9.4 10^3/uL (4.4-10.8)
--- NOTE | 2019-10-23 16:50 | NUR ---
PATIENT TAKEN TO PRE-OP. NO S/S OF DISTRESS OR SOB AT THIS TIME.
[2019-10-23 17:01] LABS: INR 0.98 (0.9-1.15); Partial Thromboplastin Time 27.4 sec (23.64-32.05)
[2019-10-23] MEDS ORDERED: LIDOCAINE 2% (LOCAL ANESTH.) PF 5ml SDV ONE (17:06)
[2019-10-23] MEDS ORDERED: ePHEDrine SULFATE 50 MG/ML AMP ONE (17:06)
[2019-10-23] MEDS ORDERED: PROPOFOL 10 MG/ML 20 ML IV ONE (17:06)
[2019-10-23] MEDS ORDERED: GLYCOPYRROLATE 0.2 MG/ML 1ML VIAL ONE (17:06)
[2019-10-23] MEDS ORDERED: ONDANSETRON HCL 4 MG/2 ML VIAL ONE (17:06)
[2019-10-23] MEDS ORDERED: DexAMETHasone SOD PHOS 10MG/1ML VIAL INJ ONE (17:06)
[2019-10-23] MEDS ORDERED: fentaNYL CITRATE 5 ML ONE (17:06)
[2019-10-23] MEDS ORDERED: MIDAZOLAM HCL 1MG/1ML-2 ML VIAL ONE (17:06)
[2019-10-23] MEDS ORDERED: HYDROmorphone HCL 2 MG/ML VL ONE (17:59)
[2019-10-23] MEDS ORDERED: metroNIDAZOLE 500MG/100ML 100 ML IV ONE (18:48)
[2019-10-23] MEDS ORDERED: MORPHINE SULF INJ 2 MG/ML SYRINGE 1ML IV PRN (19:00)
[2019-10-23] MEDS ORDERED: HYDROmorphone HCL 2 MG/ML VL IV PRN (19:00)
[2019-10-23] MEDS ORDERED: ONDANSETRON HCL 4 MG/2 ML VIAL IV PRN (19:00)
[2019-10-23] MEDS ORDERED: D5W/SOD CHL 0.45%/KCL 20MEQ 1,000 ML IV ONE (19:00)
--- NOTE | 2019-10-23 19:05 | NUR ---
RECEIVED REPORT FROM JAYNE FIELDS FROM [facility]. SHE HAD THE PT BEFORE SURGERY. AWAITING REPORT FROM OR AND PT ARRIVAL ON UNIT.
--- NOTE | 2019-10-23 19:50 | NUR ---
RECEIVED PT FROM OR. BEDSIDE REPORT GIVEN BY OR NURSE GEETA. PT VITAL SIGNS STABLE: TEMP:98.3, HR 85, RR 20, SP02 91%, BP 154/44 MMHG. FALL BAND APPLIED. SO S/S OF DISTRESS. PT DOES REPORT PAIN AT THE SURGICAL SITE BUT WAS JUST GIVEN DILAUDID AT 1830 PER OR NURSE. NG TUBE IN RIGHT NARE CONNECTED TO LCS. NORMAN CATHETER DRAINING APPROPRIATELY. SURGICAL SITE CHECKED WITH NO S/S OF INFECTION PRESENT AT THIS TIME. ABDOMINAL BINDER IN PLACE. GAVE PT CALL LIGHT AND DEMONSTRATED HOW TO USE IT. FALL PRECAUTIONS IN PLACE. WILL CONTINUE TO MONITOR AND ASSESS PT.
[2019-10-23 20:00] VITALS: BP_SYST 154; BP_DIAS 44; BP_DIAS 64
--- NOTE | 2019-10-23 21:40 | NUR ---
FAMILY CALL CALLED PTS DAUGHTER. PASSWORD VERIFIED. UPDATED HER ON PT CONDITION AND PLAN OF CARE. PT REQUESTS TO BE CALLED IF FULL STACK PYTHON DEVELOPER IS NEEDED.
[2019-10-23] MEDS: HYDROmorphone HCL 2 MG/ML VL IV PRN (22:33)
[2019-10-23] MEDS: metroNIDAZOLE 500MG/100ML 100 ML IV SCH (22:34)
[2019-10-23] MEDS: ceFAZolin 1GM/50ML 50 ML IV SCH (22:34)
[2019-10-24] VITALS (8 sets, daily range): BP systolic 97–118; BP diastolic 47–63
[2019-10-24] MEDS: HYDROmorphone HCL 2 MG/ML VL IV PRN ×3 (00:35→09:28)
--- NOTE | 2019-10-24 00:40 | NUR ---
0035 DILAUDID ADMIN COSIGNED AND 1.5 MG WASTE WITNESSED BY COFFEE URN ATTENDANT, ROMAN. 0.5 MG WAS ADMINISTERED TO PT AT 0035 PER MD ORDER.
--- NOTE | 2019-10-24 02:41 | NUR ---
PT CARE GAVE PT CHG BATH. SKIN ASSESSED WITH NO NEW CHANGES AT THIS TIME. SURGICAL ABDOMINAL BINDER STILL IN PLACE AND SITE IS ASYMPTOMATIC. PT DOES COMPLAIN OF PAIN AT SITE. FULL PRICILLA CHANGE DONE AND GOWN CHANGE DONE.
[2019-10-24 03:40] LABS: Albumin 2.3 g/dL (3.4-5.0); Anion Gap 7 (5-15); Blood Urea Nitrogen 9 mg/dL (7-18); Calcium 7.9 mg/dL (8.5-10.1); Carbon Dioxide 23 mmol/L (21-32); Chloride 107 mmol/L (98-107); Glucose 206 mg/dL (74-106); Potassium 4.9 mmol/L (3.5-5.1); Sodium 137 mmol/L (136-145)
[2019-10-24 03:42] LABS: Alanine Aminotransferase 86 U/L (13-56); Aspartate Aminotransferase 24 U/L (15-37); BUN/Creatinine Ratio 9.6; GFR African American 75 mL/min; GFR Non-African American 62 mL/min
[2019-10-24 03:44] LABS: Alkaline Phosphatase 108 U/L (45-117); Bilirubin, Total < 0.1 mg/dL (0.2-1.0); Total Protein 5.9 g/dL (6.4-8.2)
[2019-10-24] MEDS: ceFAZolin 1GM/50ML 50 ML IV SCH ×3 (05:23→21:25)
[2019-10-24] MEDS: metroNIDAZOLE 500MG/100ML 100 ML IV SCH ×3 (05:37→23:00)
[2019-10-24] MEDS: LACTULOSE 20Gm/30ML SOLN PO SCH ×2 (06:00→09:20)
--- NOTE | 2019-10-24 06:52 | NUR ---
IS TEACHING IS AT BEDSIDE. CALLED PTS DAUGHTER TO TRANSLATE INSTRUCTION, PER HER REQUEST. EXPLAINED AND DEMONSTRATED PROPER USE OF DEVICE. PT TOLD DAUGHTER THAT SHE HAS USED IS PREVIOUSLY AND VERBALIZES ALL UNDERSTANDING OF TEACHING. ALL QUESTIONS AND CONCERNS ADDRESSED AT THIS TIME. WILL ENCOURAGE USE.
--- NOTE | 2019-10-24 08:30 | NUR ---
Opening Shift Note Assumed care of patient, awake and oriented x3, re-oriented to time. Patient primary Georgian speaking, [employer] Fil[employer] Maker # [id number] utilized in communicating with patient. No S/S of distress/SOB or pain. See interventions for complete assessment. Re-instructed and motivated patient on use of IS, verbalized understanding. Bed locked on low position, side rails up x2, bed alarms on at all times, call tamez within reach, instructed on POC and to call for assist PRN, will continue to monitor for changes Q1hr and PRN.
--- NOTE | 2019-10-24 08:31 | NUR ---
RT NGT draining to LCS draining serosanguinous, will continue to monitor.
[2019-10-24] MEDS: PANTOPRAZOLE 40 MG/10 ML VIAL INJ IV SCH (09:27)
--- NOTE | 2019-10-24 10:26 | NUR ---
Received call from Dr Diop, updated on patient's status. Will carry out new orders.
[2019-10-24] MEDS ORDERED: DEXTROSE (50%) 50ML SYRG IV PRN (11:30)
[2019-10-24] MEDS: InsuLIN REG 1unit/0.01ml Soln (100units/ml) SC SCH ×2 (12:00→17:58)
[2019-10-24] MEDS: ACCU-CHEK COMFORT CURVE STRIP VI SCH ×2 (12:31→17:59)
--- NOTE | 2019-10-24 12:40 | NUR ---
Piero Wilson BUSINESS TECHNOLOGY ARCHITECT at bedside, updated on patient's status. Patient seen and examined. Will carry out new orders.
[2019-10-24] MEDS: SODIUM CHLORIDE 0.9% 1,000 ML IV SCH (13:04)
--- NOTE | 2019-10-24 13:17 | NUR ---
Patient out of bed ambulating using walker with Odalis HAMILTON Fall precuations in place. Patient tolerated one lap around nurse station.
[2019-10-24] MEDS: MORPHINE SULF INJ 2 MG/ML SYRINGE 1ML IV PRN ×3 (13:22→20:45)
--- NOTE | 2019-10-24 13:24 | NUR ---
Patient able to do IS 20x up to 100ml level.
--- NOTE | 2019-10-24 13:33 | NUR ---
Dr Nair at bedside, updated on patient's status. Patient seen and examined. MD states patient may be transferred to Tele. Will inform Piero VALENCIA.
--- NOTE | 2019-10-24 18:00 | NUR ---
Patient able to do IS 10x up to 500ml.
--- NOTE | 2019-10-24 19:30 | NUR ---
OPENING SHIFT / SPOKE WITH DAUGHTER RECEIVED REPORT FROM DAY SHIFT RN. ASSUMED CARE OF PATIENT. PATIENT IN BED RESTING WITH NO SIGNS OR SYMPTOMS OF SOB, PAIN OR DISTRESS. CURRENTLY ON ROOM AIR, 02 SAT - 97%. RIGHT UPPER ARM IV - CLEAN/DRY/INTACT. NORMAN HUNG TO GRAVITY. MIDLINE ABDOMINAL INCISION - CLEAN/DRY/INTACT, ABDOMINAL BINDER IN PLACE. SPOKE WITH DAUGHTER, PASSWORD VERIFIED - UPDATED DAUGHTER ON PLAN OF CARE AND PATIENT STATUS; DAUGHTER ABLE TO TRANSLATE TO PATIENT PLAN OF CARE VIA CELL PHONE. REPOSITIONED FOR COMFORT. BED IN LOWEST POSITION, SIDE RAILS UP X2. CALL LIGHT WITHIN REACH. WILL CONTINUE TO MONITOR.
--- NOTE | 2019-10-24 21:22 | NUR ---
CALLED TO GIVE REPORT - ABDIAS SAMUELS RN WILL CALL BACK LATER TO RECEIVE REPORT.
--- NOTE | 2019-10-24 21:45 | NUR ---
REPORT GIVEN TO INSTITUTIONAL CUSTODIAN, PATIENT TRANSFERRED TO ROOM 251B
--- NOTE | 2019-10-24 22:00 | NUR ---
Received pt to room via hospital bed. Report prev received from SANDRA Pulido nurse. Abd dressing marked for drainage almost to surface; none beyond marking. NG tube in place and secured with special tape designed for nose anchoring of tubing. Call to Vilma, pt's daughter who interpreted for pt and this RN. RN explained current POC her in MST. Pt c/o pain from nose all the way to abd. RN explained to pt and dtr that pain meds do little to nothing for the pain associated with the NG rubbing in pt's throat and esophagus. Pt denies having passed flatus; RN explained that this would be a good sign of poss decision to dc NG. Currently light bile green liquid in tubing. Bed low; rails up at bilat HOB. Call light within pt's reach.
[2019-10-25] MEDS: ONDANSETRON HCL 4 MG/2 ML VIAL IV PRN (00:43)
[2019-10-25] MEDS: MORPHINE SULF INJ 2 MG/ML SYRINGE 1ML IV PRN ×2 (00:44→06:37)
--- NOTE | 2019-10-25 03:32 | NUR ---
Attempted to use [employer] line phone for labeling machine operator. Placed on prolonged hold while company attempted to find labeling machine operator. Placed on hold twice more. Pt then offered to call her daughter, Vilma, again to interpret as she had shortly after pt arrived into room at 2200. Vilma states that pt denies stating pain med doesn't work, but pt stating pain now at 8 when she last received pain med at 0044. Vilma also states pain controlled better by dilaudid. Informed pt and her daughter that will call cold reduction roller for med order; Vilma expressed thanks, pt smiled. Paging cold reduction roller.
[2019-10-25] MEDS: HYDROmorphone HCL 2 MG/ML VL IV PRN ×3 (04:34→22:25)
[2019-10-25 04:49] VITALS: BP 107/52
[2019-10-25 05:42] LABS: Basophils # (auto) 0 10 ^3/uL (0-0.2); Basophils % (auto) 0.3 % (0.0-2.0); Eosinophils # (auto) 0.1 10 ^3/uL (0-0.8); Hemoglobin 8.3 g/dL (12.2-16.2); Lymphocytes # (auto) 1.7 10 ^3/uL (0.4-5.4); Monocytes # (auto) 0.5 10 ^3/uL (0-1.3); Monocytes % (auto) 7.4 % (0.0-12.0); Neutrophils # (auto) 4.1 10 ^3/uL (1.6-8.6)
[2019-10-25 05:46] LABS: Hematocrit 25.4 % (36.0-46.0); Lymphocytes % (auto) 26.5 % (10.0-50.0); Mean Corpuscular Hemoglobin 32.2 pg (28.0-32.0); Mean Corpuscular Hgb Conc. 32.6 g/dL (32.0-36.0); Mean Corpuscular Volume 98.6 fL (80.0-100.0); Neutrophils % (auto) 64.8 % (37.0-80.0); Nucleated Red Blood Cells % 0.1 %; Platelet Count (auto) 199 10^3/uL (140-450); Red Blood Cells 2.58 10^6/uL (4.0-5.20); Red Cell Distribution Width 15.5 % (11.8-14.3); White Blood Cell 6.3 10^3/uL (4.4-10.8)
[2019-10-25] MEDS: ACCU-CHEK COMFORT CURVE STRIP VI SCH ×4 (06:00→17:20)
[2019-10-25] MEDS: InsuLIN REG 1unit/0.01ml Soln (100units/ml) SC SCH ×4 (06:00→17:20)
[2019-10-25 06:06] LABS: Albumin 2.4 g/dL (3.4-5.0); Calcium 8.2 mg/dL (8.5-10.1); Potassium 3.9 mmol/L (3.5-5.1)
[2019-10-25 06:10] LABS: BUN/Creatinine Ratio 15.8; Bilirubin, Total 0.2 mg/dL (0.2-1.0); Total Protein 5.7 g/dL (6.4-8.2)
[2019-10-25] MEDS: SODIUM CHLORIDE 0.9% 1,000 ML IV SCH ×3 (06:22→18:43)
[2019-10-25] MEDS: metroNIDAZOLE 500MG/100ML 100 ML IV SCH ×3 (06:23→22:00)
--- NOTE | 2019-10-25 07:30 | NUR ---
Opening Shift Note RECEIVED REPORT FROM NOC RN. Assumed care of patient, awake and alert. No S/S of distress/SOB or pain. BED IN LOWEST, LOCKED POSITION WITH SIDERAILS UP x2 AND CALL LIGHT WITHIN REACH. Instructed on POC and to call for assist PRN, will continue to monitor for changes Q1hr and PRN.
[2019-10-25 07:37] LABS: INR 1.01 (0.9-1.15); Partial Thromboplastin Time 26.1 sec (23.64-32.05)
[2019-10-25 09:00] VITALS: BP 119/59
[2019-10-25] MEDS: ceFAZolin 1GM/50ML 50 ML IV SCH ×3 (09:14→22:00)
--- NOTE | 2019-10-25 10:30 | NUR ---
ERIK KELLY AT BEDSIDE.
[2019-10-25] MEDS: PANTOPRAZOLE 40 MG/10 ML VIAL INJ IV SCH (10:55)
[2019-10-25 12:40] VITALS: BP 136/68
[2019-10-25] MEDS: MORPHINE SULFATE 4 MG/ML SYR/VIAL IV PRN ×2 (13:47→20:30)
[2019-10-25 16:27] VITALS: BP 114/44
--- NOTE | 2019-10-25 20:00 | NUR ---
Opening Shift Note Assumed care of patient, awake, AAOx4. No S/S of distress/SOB. On room air and bedrest. NGT to right nares patent and on continuous low suction. Patient is Finnish speaking, called daughter to assist with translation. Bed in lowest locked position, side rails up x2, call light within reach. Instructed on POC and to call for assist PRN, will continue to monitor for changes Q1hr and PRN.
[2019-10-25 22:00] VITALS: BP 122/58
[2019-10-26] MEDS: ACCU-CHEK COMFORT CURVE STRIP VI SCH ×5 (00:33→23:53)
[2019-10-26] MEDS: SODIUM CHLORIDE 0.9% 1,000 ML IV SCH (02:54)
[2019-10-26] MEDS: HYDROmorphone HCL 2 MG/ML VL IV PRN ×2 (04:25→15:15)
[2019-10-26 05:00] VITALS: BP 148/75
[2019-10-26] MEDS: ceFAZolin 1GM/50ML 50 ML IV SCH ×3 (05:47→22:27)
[2019-10-26] MEDS: InsuLIN REG 1unit/0.01ml Soln (100units/ml) SC SCH ×5 (06:00→23:53)
[2019-10-26] MEDS: metroNIDAZOLE 500MG/100ML 100 ML IV SCH ×3 (06:00→22:27)
[2019-10-26 08:30] VITALS: BP_SYST 122; BP_SYST 150; BP_DIAS 63; BP_DIAS 76
[2019-10-26] MEDS: MORPHINE SULFATE 4 MG/ML SYR/VIAL IV PRN ×2 (09:40→22:26)
[2019-10-26] MEDS: PANTOPRAZOLE 40 MG/10 ML VIAL INJ IV SCH (09:40)
[2019-10-26] MEDS: D5W/SOD CHL 0.45%/KCL 20MEQ 1,000 ML IV SCH ×2 (09:55→19:30)
--- NOTE | 2019-10-26 10:00 | NUR ---
Attempted PT treatment, hold for now per RN.
--- NOTE | 2019-10-26 11:00 | NUR ---
PT IV INFILTRATED. ATTEMPTED NEW IV TWICE USING STERILE TECHNIQUE, UNSUCCESSFUL. NEW IV PLACED BY DILCIA RN, 22 LW. PT STARTED ON DEXTROSE/0.45 NS/ POT 20 MEQ PER MD ORDER. RADIOLOGY UP TO DO SMALL BOWEL SERIES AT BEDSIDE, PT BS WAS 63 THIS MORNING. PHYSICAL THERAPY PUT ON HOLD UNTIL PT SUGAR WNL AND SMALL BOWEL SERIES FINISHED.
[2019-10-26] MEDS ORDERED: GASTROGRAFIN 120 ML SOL ONE (11:09)
--- NOTE | 2019-10-26 11:58 | NUR ---
Nutrition Followup Note Wt: 41.8 Kg Pt is s/p small bowel surgery. Pt is currently still NPO. Consider providing pt with alternate nutrition if pt to continue to be NPO. Est energy needs 2277-5204 kcal (25-30 kcal/kg IBW 59.1kg) Est protein needs 59-71g (1-1.2g/kg IBW 59.1 kg r/t underwt) Will reassess prn. Labs: GLUC 63L, Ca 8.2L, Alb 2.4L Skin: BS 19 low risk, full details in animal care taker doc BM: Pt had 2 BM 10/22 per RN doc PES: Underweight aeb 70% of IBW and BMI of 15.6 kg/m2 r/t intake less than needs Rec: 1) advance diet as medically feasible. 2) consider alternate nutrition support if pt NPO > 48 hrs. 3) Continue current plan of care. F/u mod 2-3 days
[2019-10-26 12:30] VITALS: BP 150/76
--- NOTE | 2019-10-26 14:18 | NUR ---
UNABLE TO DC AT THIS TIME PT EF LESS THAN 20%, AND NOT ON BROOKE OR ARB AND NEED TO KNOW WHERE PRESCRIPTION IS FOR PATIENT. CALLED DR MTZ AND LEFT MESSAGE, AWAITING CALL BACK. Addendum: 10/26/19 at 1421 by HAY HAMILTON RN WRONG PATIENT
--- NOTE | 2019-10-26 14:20 | NUR ---
AMBULATED PT DOWN HALLWAY AND BACK ON , SATURATION 93%. Addendum: 10/26/19 at 1422 by HAY HAMILTON RN WRONG PATIENT
[2019-10-26 17:12] VITALS: BP 134/66
[2019-10-26 22:00] VITALS: BP 145/78
[2019-10-27] MEDS: HYDROmorphone HCL 2 MG/ML VL IV PRN (01:33)
[2019-10-27] MEDS: MORPHINE SULFATE 4 MG/ML SYR/VIAL IV PRN ×2 (03:40→07:40)
[2019-10-27 05:00] VITALS: BP 133/73
[2019-10-27] MEDS: D5W/SOD CHL 0.45%/KCL 20MEQ 1,000 ML IV SCH ×2 (05:33→15:19)
[2019-10-27] MEDS: ceFAZolin 1GM/50ML 50 ML IV SCH ×3 (05:56→22:11)
[2019-10-27] MEDS: ACCU-CHEK COMFORT CURVE STRIP VI SCH ×4 (06:00→23:59)
[2019-10-27] MEDS: InsuLIN REG 1unit/0.01ml Soln (100units/ml) SC SCH ×4 (06:00→23:59)
[2019-10-27] MEDS: metroNIDAZOLE 500MG/100ML 100 ML IV SCH ×3 (06:03→21:15)
--- NOTE | 2019-10-27 07:26 | NUR ---
End of Shift Note Endorsed care to dayshift nurse. Patient has no s/s of distress or SOB. Patient responsive to name and touch.
[2019-10-27 08:42] VITALS: BP 148/82
[2019-10-27] MEDS: PANTOPRAZOLE 40 MG/10 ML VIAL INJ IV SCH (10:05)
--- NOTE | 2019-10-27 10:09 | NUR ---
DR BARRIOS SPOKE WITH PATIENT AND DAUGHTER AND UPDATED THEM ON POC. NEW ORDERS TO REMOVE NORMAN AND NG TUBE AND PT WILL BEGIN EATING FOOD.
[2019-10-27 10:10] LABS: Basophils # (auto) 0 10 ^3/uL (0-0.2); Basophils % (auto) 0.5 % (0.0-2.0); Eosinophils # (auto) 0.2 10 ^3/uL (0-0.8); Eosinophils % (auto) 3.6 % (0.0-7.0); Hematocrit 27.9 % (36.0-46.0); Hemoglobin 9.2 g/dL (12.2-16.2); Lymphocytes % (auto) 22.6 % (10.0-50.0); Monocytes # (auto) 0.3 10 ^3/uL (0-1.3); Monocytes % (auto) 7.8 % (0.0-12.0); Neutrophils # (auto) 2.8 10 ^3/uL (1.6-8.6); Neutrophils % (auto) 65.5 % (37.0-80.0); Platelet Count (auto) 221 10^3/uL (140-450); Red Blood Cells 2.88 10^6/uL (4.0-5.20); White Blood Cell 4.3 10^3/uL (4.4-10.8)
[2019-10-27 10:29] LABS: Albumin 2.5 g/dL (3.4-5.0); Calcium 8.2 mg/dL (8.5-10.1); Potassium 3.1 mmol/L (3.5-5.1)
[2019-10-27 10:32] LABS: BUN/Creatinine Ratio 14.1; Bilirubin, Total 0.4 mg/dL (0.2-1.0)
--- NOTE | 2019-10-27 10:55 | NUR ---
D'D NG TUBE. NG MARKED AT 64 CM IN RIGHT NARE. APPROX 200 MLS CLEAR YELLOW LIQUID NOTED IN WALL SUCTION CANISTER. DC'D NORMAN, 275 MLS CLEAR YELLOW URINE NOTED IN NORMAN. APPROX 8 MLS 0.9 NS REMOVED FROM BALLOON. PT TOLERATED PROCEDURES WELL. TELE REMOVED PER MD ORDER, CLEANED, AND SENT BACK TO MONITORS. WATER BROUGHT TO PATIENT PER PT REQUEST. CALLED PBX AND PAGED PHYSICAL THERAPY TO WORK WITH PATIENT PER MD REQUEST.
--- NOTE | 2019-10-27 12:00 | NUR ---
Patient is a 74-year-old female who is alert and oriented. Patient requested me to speak to her daughter Torreyfrank ). Per Vilma prior to admission patient lived home with her and family and functioned with assistance. Per Vilma they help patient with her ADLs. Per Bopha patient will return to her prior living arrangements and she will transport patient home. Per Vilma patient does not have any medical equipment now. Informed Vilma there is a Social Service consult for a FWW. Per Vilma she would prefer for patient to receive a walker with seat. Inform Vilma I will inform bedside nurse. Informed Vilma clinical information will be faxed to [facility] [place]. Informed Vilma she has the right to participate in all discharge planning. Vilma verbalized understanding and agreed to discharge plan. Per Amy with [facility] they will deliver walker with seat to home and they will contact family. Informed JAYNE Ball. Placed follow up call to Vilma informing her [facility] [phone] will be delivering walker with seat to home. Vilma verbalize understanding. Addendum: 10/28/19 at 1010 by CLAIR HARDY Amended: Links added.
--- NOTE | 2019-10-27 12:36 | NUR ---
PT VOIDED IN BEDSIDE COMMODE, MODERATE AMOUNT OF YELLOW URINE NOTED. PT WALKED IN HALLWAY WITH PHYSICAL THERAPY AND WALKER.
[2019-10-27 12:37] VITALS: BP 134/64
[2019-10-27] MEDS: HYDROcodone-ACET 5/325MG TAB PO PRN ×2 (13:08→17:13)
[2019-10-27] MEDS ORDERED: POTASSIUM CHLORIDE 40 MEQ, LIDOCAINE 1% (LOCAL ANESTH.) 4 ML in SODIUM CHL 0.9% 100 ML IV ONE (13:15)
[2019-10-27 17:00] VITALS: BP 120/70
--- NOTE | 2019-10-27 19:18 | NUR ---
Opening Shift Note Assumed care of patient, awake and alert. No S/S of distress/SOB or pain. Instructed on POC and to call for assist PRN, will continue to monitor for changes Q1hr and PRN. Side rails up x2. Bed locked in lowest position. Call light within reach.
[2019-10-27] MEDS: traMADol HCL 50 MG TAB PO PRN (20:07)
[2019-10-27 22:26] VITALS: BP 110/58
--- NOTE | 2019-10-27 22:36 | NUR ---
Patient able to transfer to commode independently to have a BM.
[2019-10-28] MEDS: D5W/SOD CHL 0.45%/KCL 20MEQ 1,000 ML IV SCH (01:30)
[2019-10-28] MEDS: metroNIDAZOLE 500MG/100ML 100 ML IV SCH (04:48)
[2019-10-28] MEDS: traMADol HCL 50 MG TAB PO PRN ×3 (04:48→20:42)
[2019-10-28 05:27] VITALS: BP 132/71
[2019-10-28] MEDS: InsuLIN REG 1unit/0.01ml Soln (100units/ml) SC SCH ×3 (06:00→18:00)
[2019-10-28] MEDS: ceFAZolin 1GM/50ML 50 ML IV SCH (06:14)
[2019-10-28] MEDS: ACCU-CHEK COMFORT CURVE STRIP VI SCH ×3 (06:15→18:46)
--- NOTE | 2019-10-28 07:24 | NUR ---
Endorsed care to day shift RN.
[2019-10-28 08:57] VITALS: BP 136/74
[2019-10-28] MEDS: PANTOPRAZOLE 40 MG TAB PO SCH (09:25)
--- NOTE | 2019-10-28 10:05 | NUR ---
pt seen by Dr. Diop per Dr. Diop, family can bring food for the pt, plan for DC tomorrow.
[2019-10-28] MEDS ORDERED: CLOPIDOGREL BISULFATE 75 MG TAB PO ONE (10:15)
[2019-10-28 12:50] VITALS: BP 147/83
[2019-10-28] MEDS: HYDROcodone-ACET 5/325MG TAB PO PRN ×3 (13:15→22:47)
--- NOTE | 2019-10-28 14:56 | NUR ---
Nutrition Followup Note Wt: 41.8 Kg Pt is s/p small bowel surgery, [facility] soft diet with no PO recorded yet. Est energy needs 0504-6433 kcal (25-30 kcal/kg IBW 59.1kg) Est protein needs 59-71g (1-1.2g/kg IBW 59.1 kg r/t underwt) Will reassess prn. Labs: CA 8.2 L, ALB 2.5 L. Skin: BS 19 low risk, full details in pediatric care coordinator doc BM: Pt had 1 BM today per RN doc PES: Underweight aeb 70% of IBW and BMI of 15.6 kg/m2 r/t intake less than needs Rec: 1) consider Glucerna 1 carton bid. 2) Continue current plan of care. F/u mod 3-5 days
[2019-10-28 17:00] VITALS: BP 123/67
--- NOTE | 2019-10-28 19:30 | NUR ---
Opening Shift Assumed care of patient, awake and alert x4. Patient denies pain or shortness of breath at this time. No sign/symptoms of distress noted or verbalized at this time. [employer] worker phone noted at the bedside. Instructed on plan of care and to call for assistance as needed, patient verbalized understanding. Bed is locked in lowest position, side rails x 2 are up, call light is within reach, and bed alarm is on.
--- NOTE | 2019-10-28 22:00 | NUR ---
Refusing IV Insertion Patient has an IV to the left wrist that is leaking. Patient is refusing an IV insertion at this time. Patient states "It's okay, I go home tomorrow." Educated patient on the importance of having a patent IV access, patient verbalized understanding and continues to refuse new IV insertion. This RN reinforced IV with tegaderm.
[2019-10-28 22:30] VITALS: BP 121/68
[2019-10-29] MEDS: ACCU-CHEK COMFORT CURVE STRIP VI SCH ×3 (00:06→12:00)
[2019-10-29] MEDS: traMADol HCL 50 MG TAB PO PRN ×2 (00:39→13:57)
[2019-10-29 05:30] VITALS: BP 137/75
[2019-10-29] MEDS: InsuLIN REG 1unit/0.01ml Soln (100units/ml) SC SCH ×3 (06:00→12:00)
[2019-10-29] MEDS: HYDROcodone-ACET 5/325MG TAB PO PRN (06:18)
--- NOTE | 2019-10-29 07:15 | NUR ---
OPENING NOTE RECEIVED REP[ORT FROM UDAY RN, PATIENT RESTING IN BED WITHOUT S/S OF DISTRESS. HAS C/O MILD DIZZINESS.
[2019-10-29 07:52] VITALS: BP 133/72
[2019-10-29] MEDS ORDERED: CLOPIDOGREL BISULFATE 75 MG TAB PO SCH (10:00)
--- NOTE | 2019-10-29 10:30 | NUR ---
COMMUNICATION POC DC, WITH DECREASE IS C/O DIZZINESS. WILL CONTINUE TO MONITOR.
[2019-10-29] MEDS ORDERED: TRAM50TA2 PO (10:38)
[2019-10-29] MEDS ORDERED: MECL12.514 PO (10:38)
[2019-10-29] MEDS: PANTOPRAZOLE 40 MG TAB PO SCH (11:22)
--- NOTE | 2019-10-29 12:30 | NUR ---
IV removal IV DC'd with clean sterile technique, catheter fully intact. Pressure dressing applied to site. Patient tolerated well. NOTE:
[2019-10-29 13:00] VITALS: BP 138/80
[2019-10-29] MEDS ORDERED: MECLIZINE HCL 25 MG TAB PO ONE (13:00)
[2019-10-29 14:02] VITALS: BP 100/48
--- NOTE | 2019-10-29 14:24 | NUR ---
D/C Planning Per SS consult for home health physical therapy. Faxed clinical information to [facility] as requested by daughter. Per Elda with [facility] [phone] patient has been accepted and service to start within 24-48. Informed RN Pia.
[2019-10-29 17:00] VITALS: BP 137/72
--- NOTE | 2019-10-29 17:18 | NUR ---
Discharge instructions given as ordered. Encourage to follow up with PMD as instructed. All questions and concerns addressed. Patient verbalized understanding. Medication reconciliation form completed and copy given to patient. IV removed with catheter intact, pressure dressing applied. Patient taken to vehicle via wheelchair with all personal belongings, accompanied by staff. No distress noted at time of departure.
== END 2019-10-29 17:18 | disposition home health service (06) | DRG 230 ==
LOC: ER 17:51 → EDBD 17:51 → WEST WING 17:52 → DOU IN ICU 10-23 19:03 → TELE-EAST 10-24 22:01 → EAST 10-27 10:23
PROVIDERS: ADMIT Nurse Practitioner; ATTEND Internal Medicine
PROC: 0DQ80ZZ Repair Small Intestine, Open Approach (ICD-10-PCS; 2019-10-23)
PROC: 0DN80ZZ Release Small Intestine, Open Approach (ICD-10-PCS; 2019-10-23)
PROC: 0D9670Z Drainage of Stomach with Drainage Device, Via Natural or Artificial Opening (ICD-10-PCS; principal; 2019-10-23 17:35)
DX: K56.51 Intestinal adhesions [bands], with partial obstruction (principal); E11.9 Type 2 diabetes mellitus without complications; N12 Tubulo-interstitial nephritis, not specified as acute or chronic; E44.1 Mild protein-calorie malnutrition; E78.5 Hyperlipidemia, unspecified; B96.20 Unspecified Escherichia coli [E. coli] as the cause of diseases classified elsewhere; I10 Essential (primary) hypertension; R79.89 Other specified abnormal findings of blood chemistry; K56.41 Fecal impaction; I25.10 Atherosclerotic heart disease of native coronary artery without angina pectoris; Z68.1 Body mass index [BMI] 19.9 or less, adult; Z90.49 Acquired absence of other specified parts of digestive tract; Z88.8 Allergy status to other drugs, medicaments and biological substances; Z90.710 Acquired absence of both cervix and uterus; Z95.5 Presence of coronary angioplasty implant and graft
CPT/HCPCS: 36415; 51702; 71045; 74018; 74176; 74250; 76705; 80053; 81001; 82150; 82962; 83540; 83550; 83690; 83735; 84100; 84484; 85025; 85610; 85730; 86038; 86704; 86706; 86708; 86803; 86850; 86900; 86901; 87086; 87088; 87186; 87340; 93005; 96365; 97163; 97530; C9113; G0378; J0690; J0696; J1100; J1815; J1885; J2001; J2250; J2405; J2704; J3490

== ENCOUNTER 2020-01-15 09:34 | Emergency (ER) | payer MEDICARE, OTHER ==
[~2020-01-15] VITALS: Ht 149.9 cm; Wt 49.9 kg
[~2020-01-15 09:34] MED LIST changes: +CLOP75TA41 PO; -IBUP800T24; +LISI-646 PO; +MECL12.514 PO; -POTA1TAB61 PO
[2020-01-15 09:40] VITALS: BP 175/80
== END 2020-01-15 11:34 | disposition home or self-care (01) ==
LOC: EDBD 09:34 → ER 09:34
DX: J06.9 Acute upper respiratory infection, unspecified (principal); R53.1 Weakness; E11.9 Type 2 diabetes mellitus without complications; M10.9 Gout, unspecified; E78.5 Hyperlipidemia, unspecified; I10 Essential (primary) hypertension; I25.2 Old myocardial infarction; Z20.828 Contact with and (suspected) exposure to other viral communicable diseases
CPT/HCPCS: 36415; 71045; 87426

== ENCOUNTER 2020-01-17 22:34 | Inpatient (IN) | payer MEDICARE, OTHER ==
[~2020-01-17] VITALS: Ht 152.4 cm; Wt 41.6 kg
[2020-01-17 23:25] LABS: Basophils # (auto) 0 10 ^3/uL (0-0.2); Basophils % (auto) 0.3 % (0.0-2.0); Eosinophils # (auto) 0 10 ^3/uL (0-0.8); Hematocrit 35.7 % (36.0-46.0); Hemoglobin 11.3 g/dL (12.2-16.2); Lymphocytes # (auto) 0.7 10 ^3/uL (0.4-5.4); Mean Corpuscular Hemoglobin 30.3 pg (28.0-32.0); Mean Corpuscular Hgb Conc. 31.6 g/dL (32.0-36.0); Mean Corpuscular Volume 95.8 fL (80.0-100.0); Monocytes # (auto) 0.3 10 ^3/uL (0-1.3); Monocytes % (auto) 7.3 % (0.0-12.0); Neutrophils # (auto) 3.4 10 ^3/uL (1.6-8.6); Neutrophils % (auto) 77.4 % (37.0-80.0); Platelet Count (auto) 160 10^3/uL (140-450); Red Blood Cells 3.73 10^6/uL (4.0-5.20); Red Cell Distribution Width 14.4 % (11.8-14.3); White Blood Cell 4.4 10^3/uL (4.4-10.8)
[2020-01-17 23:43] LABS: Albumin 3.1 g/dL (3.4-5.0); BUN/Creatinine Ratio 17.1; Calcium 8.2 mg/dL (8.5-10.1); Potassium 4.5 mmol/L (3.5-5.1)
[2020-01-17 23:48] LABS: Bilirubin, Total 0.3 mg/dL (0.2-1.0); Total Protein 7.8 g/dL (6.4-8.2)
[2020-01-18] MEDS ORDERED: DexAMETHasone SOD PHOS 10MG/1ML VIAL INJ IV ONE (01:30)
[2020-01-18] MEDS ORDERED: ENOXAPARIN SOD 60 MG/0.6 ML SYRINGE SC ONE (01:45)
[2020-01-18] MEDS: SODIUM CHLORIDE 0.9% 1,000 ML IV SCH ×2 (02:55→07:32)
[2020-01-18] MEDS ORDERED: NITROGLYCERIN 0.4 MG SL TAB SL PRN (03:00)
[2020-01-18] MEDS ORDERED: ACETAMINOPHEN 325 MG TAB PO PRN (03:00)
[2020-01-18] MEDS ORDERED: ACETAMINOPHEN 500 MG TAB PO PRN (03:00)
[2020-01-18] MEDS ORDERED: MORPHINE SULF INJ 2 MG/ML SYRINGE 1ML IV PRN (03:00)
[2020-01-18] MEDS ORDERED: DOCUSATE SOD 100 MG CAP PO PRN (03:00)
[2020-01-18] MEDS: MORPHINE SULF INJ 2 MG/ML SYRINGE 1ML IV PRN ×2 (05:29→09:34)
[2020-01-18] MEDS: ALBUTEROL SULF HFA 90MCG INH 200DOSE IN SCH ×3 (06:00→21:44)
[2020-01-18] MEDS ORDERED: MECLIZINE HCL 25 MG TAB PO PRN (06:00)
[2020-01-18] MEDS ORDERED: SODIUM CHLORIDE 0.9% 2,000 ML IV ONE (07:45)
[2020-01-18] MEDS: PANTOPRAZOLE 40 MG TAB PO SCH (09:29)
[2020-01-18] MEDS: DOXYCYCLINE 100 MG TAB/CAP PO SCH ×2 (09:30→22:40)
[2020-01-18] MEDS: ASCORBIC ACID 1,000 MG TAB PO SCH (09:30)
[2020-01-18] MEDS: ENOXAPARIN SOD 30 MG/0.3 ML SYRINGE SC SCH (09:31)
[2020-01-18] MEDS: ALLOPURINOL 300 MG TAB PO SCH (09:31)
[2020-01-18] MEDS: ASPirin-EC 81 mg tab PO SCH (09:32)
[2020-01-18] MEDS: amLODIPine BESYLATE 5 MG TAB PO SCH (09:32)
[2020-01-18] MEDS: FOLIC ACID 1 MG TAB PO SCH (09:32)
[2020-01-18] MEDS: METOPROLOL TARTRATE 25 MG TAB PO SCH ×2 (09:33→22:40)
[2020-01-18] MEDS: ZINC SULFATE 220mg CAP or TAB PO SCH (09:33)
[2020-01-18] MEDS ORDERED: LISINOPRIL 20 MG TAB PO SCH (10:00)
[2020-01-18] MEDS ORDERED: CLOPIDOGREL BISULFATE 75 MG TAB PO SCH (10:00)
[2020-01-18 10:29] VITALS: BP 146/72
[2020-01-18 11:39] LABS: BUN/Creatinine Ratio 19.2; Calcium 8.2 mg/dL (8.5-10.1)
[2020-01-18 12:00] VITALS: BP 107/62
[2020-01-18 16:41] VITALS: BP 121/67
[2020-01-18] MEDS: Ensure Enlive Strawberry 8oz Bottle PO SCH (17:39)
[2020-01-18] MEDS: ATORVASTATIN 20 MG TAB PO SCH (17:39)
[2020-01-18] MEDS ORDERED: SODIUM BICARBONATE 650 MG TAB PO ONE (18:45)
[2020-01-18 22:00] VITALS: BP 116/58
[2020-01-18] MEDS: SODIUM BICARBONATE 650 MG TAB PO SCH (22:40)
[2020-01-19] MEDS: MORPHINE SULF INJ 2 MG/ML SYRINGE 1ML IV PRN ×4 (03:08→23:51)
[2020-01-19 05:00] VITALS: BP 128/71
[2020-01-19] MEDS: ALBUTEROL SULF HFA 90MCG INH 200DOSE IN SCH ×3 (06:12→21:16)
[2020-01-19] MEDS: SODIUM BICARBONATE 650 MG TAB PO SCH ×4 (06:45→22:18)
[2020-01-19] MEDS: Ensure Enlive Strawberry 8oz Bottle PO SCH ×2 (08:00→18:11)
[2020-01-19 08:18] VITALS: BP 116/56
[2020-01-19] MEDS: ENOXAPARIN SOD 30 MG/0.3 ML SYRINGE SC SCH (10:15)
[2020-01-19] MEDS: ASCORBIC ACID 1,000 MG TAB PO SCH (10:15)
[2020-01-19] MEDS: DOXYCYCLINE 100 MG TAB/CAP PO SCH ×2 (10:15→22:19)
[2020-01-19] MEDS: amLODIPine BESYLATE 5 MG TAB PO SCH (10:15)
[2020-01-19] MEDS: PANTOPRAZOLE 40 MG TAB PO SCH (10:16)
[2020-01-19] MEDS: ZINC SULFATE 220mg CAP or TAB PO SCH (10:16)
[2020-01-19] MEDS: METOPROLOL TARTRATE 25 MG TAB PO SCH ×2 (10:17→22:19)
[2020-01-19] MEDS: FOLIC ACID 1 MG TAB PO SCH (10:17)
[2020-01-19] MEDS: ALLOPURINOL 300 MG TAB PO SCH (10:17)
[2020-01-19] MEDS: ASPirin-EC 81 mg tab PO SCH (10:17)
[2020-01-19 10:51] LABS: Basophils # (auto) 0 10 ^3/uL (0-0.2); Basophils % (auto) 0.1 % (0.0-2.0); Eosinophils # (auto) 0 10 ^3/uL (0-0.8); Hematocrit 34.5 % (36.0-46.0); Hemoglobin 11.2 g/dL (12.2-16.2); Lymphocytes # (auto) 0.8 10 ^3/uL (0.4-5.4); Lymphocytes % (auto) 7.8 % (10.0-50.0); Mean Corpuscular Hemoglobin 30.3 pg (28.0-32.0); Mean Corpuscular Hgb Conc. 32.4 g/dL (32.0-36.0); Mean Corpuscular Volume 93.6 fL (80.0-100.0); Monocytes # (auto) 0.6 10 ^3/uL (0-1.3); Monocytes % (auto) 6.3 % (0.0-12.0); Neutrophils # (auto) 8.8 10 ^3/uL (1.6-8.6); Neutrophils % (auto) 85.8 % (37.0-80.0); Nucleated Red Blood Cells % 0.1 %; Platelet Count (auto) 188 10^3/uL (140-450); Red Blood Cells 3.69 10^6/uL (4.0-5.20); Red Cell Distribution Width 14.1 % (11.8-14.3); White Blood Cell 10.3 10^3/uL (4.4-10.8)
[2020-01-19 11:11] LABS: Albumin 3.1 g/dL (3.4-5.0); Calcium 8.9 mg/dL (8.5-10.1); Potassium 4.2 mmol/L (3.5-5.1)
[2020-01-19 11:14] LABS: BUN/Creatinine Ratio 27.7; Bilirubin, Total 0.4 mg/dL (0.2-1.0); Total Protein 7.6 g/dL (6.4-8.2)
[2020-01-19 12:22] VITALS: BP 98/53
[2020-01-19] MEDS: HYDROcodone-ACET 5/325MG TAB PO PRN (14:24)
[2020-01-19 14:31] LABS: Magnesium 2.1 mg/dL (1.6-2.6)
[2020-01-19 17:06] VITALS: BP 109/58
[2020-01-19] MEDS: ATORVASTATIN 20 MG TAB PO SCH (18:12)
[2020-01-19] MEDS: ERGOCALCIFEROL 50,000 UNIT(1.25MG) CAP PO SCH ×2 (18:12→18:51)
[2020-01-19] MEDS: BUDESONIDE (INHALATION) 180 MCG IH IN SCH (21:16)
[2020-01-19 21:17] LABS: Urine Bacteria NONE SEEN /hpf (None Seen); Urine Blood Negative /uL (Negative); Urine Specific Gravity 1.008 (1.001-1.035); Urine WBC <1 /hpf (0 - 5)
[2020-01-19 21:49] VITALS: BP 111/55
[2020-01-19] MEDS ORDERED: BUDESONIDE (INHALATION) 0.5 MG/2 ML NEB NEB SCH (22:00)
[2020-01-20] MEDS: MORPHINE SULF INJ 2 MG/ML SYRINGE 1ML IV PRN ×3 (02:38→08:57)
[2020-01-20] MEDS: HYDROcodone-ACET 5/325MG TAB PO PRN ×3 (02:40→18:09)
[2020-01-20 05:00] VITALS: BP 114/57
[2020-01-20 05:47] LABS: Basophils # (auto) 0 10 ^3/uL (0-0.2); Basophils % (auto) 0.1 % (0.0-2.0); Eosinophils # (auto) 0 10 ^3/uL (0-0.8); Hematocrit 34.1 % (36.0-46.0); Hemoglobin 11.1 g/dL (12.2-16.2); Lymphocytes # (auto) 1.2 10 ^3/uL (0.4-5.4); Mean Corpuscular Hemoglobin 30.4 pg (28.0-32.0); Mean Corpuscular Hgb Conc. 32.6 g/dL (32.0-36.0); Mean Corpuscular Volume 93.3 fL (80.0-100.0); Monocytes # (auto) 0.5 10 ^3/uL (0-1.3); Monocytes % (auto) 3.3 % (0.0-12.0); Neutrophils # (auto) 11.8 10 ^3/uL (1.6-8.6); Neutrophils % (auto) 87.6 % (37.0-80.0); Nucleated Red Blood Cells % 0.1 %; Platelet Count (auto) 227 10^3/uL (140-450); Red Blood Cells 3.65 10^6/uL (4.0-5.20); Red Cell Distribution Width 14.6 % (11.8-14.3); White Blood Cell 13.5 10^3/uL (4.4-10.8)
[2020-01-20 05:53] LABS: Albumin 3.2 g/dL (3.4-5.0); Calcium 8.5 mg/dL (8.5-10.1); Magnesium 1.9 mg/dL (1.6-2.6); Potassium 4.1 mmol/L (3.5-5.1)
[2020-01-20 06:02] LABS: BUN/Creatinine Ratio 25.4; Bilirubin, Total 0.6 mg/dL (0.2-1.0); CRP High Sensitivity 2.45 mg/dL (< 0.3); Total Protein 7.7 g/dL (6.4-8.2)
[2020-01-20] MEDS: ALBUTEROL SULF HFA 90MCG INH 200DOSE IN SCH ×3 (06:20→23:32)
[2020-01-20] MEDS: BUDESONIDE (INHALATION) 180 MCG IH IN SCH ×2 (06:20→23:32)
[2020-01-20] MEDS: SODIUM BICARBONATE 650 MG TAB PO SCH ×4 (06:26→22:00)
[2020-01-20] MEDS: Ensure Enlive Strawberry 8oz Bottle PO SCH ×2 (08:00→18:00)
[2020-01-20 08:24] VITALS: BP 128/75
[2020-01-20] MEDS: ASPirin-EC 81 mg tab PO SCH (08:58)
[2020-01-20] MEDS: ZINC SULFATE 220mg CAP or TAB PO SCH (08:58)
[2020-01-20] MEDS: ENOXAPARIN SOD 30 MG/0.3 ML SYRINGE SC SCH (08:58)
[2020-01-20] MEDS: ALLOPURINOL 300 MG TAB PO SCH (08:58)
[2020-01-20] MEDS: PANTOPRAZOLE 40 MG TAB PO SCH (08:59)
[2020-01-20] MEDS: DOXYCYCLINE 100 MG TAB/CAP PO SCH ×2 (08:59→22:00)
[2020-01-20] MEDS: FOLIC ACID 1 MG TAB PO SCH (08:59)
[2020-01-20] MEDS: ASCORBIC ACID 1,000 MG TAB PO SCH (08:59)
[2020-01-20] MEDS: METOPROLOL TARTRATE 25 MG TAB PO SCH ×2 (09:00→22:01)
[2020-01-20] MEDS: amLODIPine BESYLATE 5 MG TAB PO SCH (09:00)
[2020-01-20] MEDS ORDERED: LACTULOSE 20Gm/30ML SOLN PO ONE (10:00)
[2020-01-20 12:17] VITALS: BP 128/62
[2020-01-20] MEDS: ACETAMINOPHEN 325 MG TAB PO PRN (16:24)
[2020-01-20 17:31] VITALS: BP 113/62
[2020-01-20] MEDS: ATORVASTATIN 20 MG TAB PO SCH (18:08)
[2020-01-20] MEDS: LACTULOSE 20Gm/30ML SOLN PO SCH (21:39)
[2020-01-20 21:50] VITALS: BP 114/67
[2020-01-20] MEDS: ONDANSETRON HCL 4 MG/2 ML VIAL IV PRN (22:01)
[2020-01-21] MEDS: HYDROcodone-ACET 5/325MG TAB PO PRN ×4 (01:26→22:46)
[2020-01-21 05:00] VITALS: BP 114/66
[2020-01-21] MEDS: SODIUM BICARBONATE 650 MG TAB PO SCH ×4 (06:01→22:45)
[2020-01-21] MEDS: BUDESONIDE (INHALATION) 180 MCG IH IN SCH ×2 (06:39→20:22)
[2020-01-21] MEDS: ALBUTEROL SULF HFA 90MCG INH 200DOSE IN SCH (06:39)
[2020-01-21 08:00] VITALS: BP 119/66
[2020-01-21] MEDS: Ensure Enlive Strawberry 8oz Bottle PO SCH ×2 (08:00→18:18)
[2020-01-21] MEDS: FOLIC ACID 1 MG TAB PO SCH (09:03)
[2020-01-21] MEDS: LACTULOSE 20Gm/30ML SOLN PO SCH ×2 (09:03→22:00)
[2020-01-21] MEDS: METOPROLOL TARTRATE 25 MG TAB PO SCH ×2 (09:04→22:45)
[2020-01-21] MEDS: ASPirin-EC 81 mg tab PO SCH (09:04)
[2020-01-21] MEDS: ZINC SULFATE 220mg CAP or TAB PO SCH (09:04)
[2020-01-21] MEDS: DOXYCYCLINE 100 MG TAB/CAP PO SCH ×2 (09:05→22:45)
[2020-01-21] MEDS: amLODIPine BESYLATE 5 MG TAB PO SCH (09:05)
[2020-01-21] MEDS: PANTOPRAZOLE 40 MG TAB PO SCH (09:05)
[2020-01-21] MEDS: ASCORBIC ACID 1,000 MG TAB PO SCH (09:05)
[2020-01-21] MEDS: ALLOPURINOL 300 MG TAB PO SCH (09:07)
[2020-01-21] MEDS: ENOXAPARIN SOD 30 MG/0.3 ML SYRINGE SC SCH (09:11)
[2020-01-21 12:00] VITALS: BP 102/59
[2020-01-21] MEDS: ONDANSETRON HCL 4 MG/2 ML VIAL IV PRN (13:30)
[2020-01-21 16:59] VITALS: BP 106/56
[2020-01-21] MEDS: D5W/SOD CHLO 0.9% 1,000 ML IV SCH (18:02)
[2020-01-21] MEDS: ATORVASTATIN 20 MG TAB PO SCH (18:10)
[2020-01-21 22:00] VITALS: BP 106/61
[2020-01-22 05:00] VITALS: BP 111/68
[2020-01-22 05:31] LABS: Basophils # (auto) 0 10 ^3/uL (0-0.2); Basophils % (auto) 0.2 % (0.0-2.0); Eosinophils # (auto) 0 10 ^3/uL (0-0.8); Eosinophils % (auto) 0.2 % (0.0-7.0); Hematocrit 30.1 % (36.0-46.0); Hemoglobin 9.9 g/dL (12.2-16.2); Lymphocytes # (auto) 1.3 10 ^3/uL (0.4-5.4); Lymphocytes % (auto) 20.4 % (10.0-50.0); Mean Corpuscular Hemoglobin 30.6 pg (28.0-32.0); Mean Corpuscular Hgb Conc. 32.8 g/dL (32.0-36.0); Mean Corpuscular Volume 93.4 fL (80.0-100.0); Monocytes # (auto) 0.5 10 ^3/uL (0-1.3); Monocytes % (auto) 7.4 % (0.0-12.0); Neutrophils # (auto) 4.4 10 ^3/uL (1.6-8.6); Neutrophils % (auto) 71.8 % (37.0-80.0); Nucleated Red Blood Cells % 0.1 %; Platelet Count (auto) 237 10^3/uL (140-450); Red Blood Cells 3.22 10^6/uL (4.0-5.20); Red Cell Distribution Width 14.4 % (11.8-14.3); White Blood Cell 6.1 10^3/uL (4.4-10.8)
[2020-01-22] MEDS: ONDANSETRON HCL 4 MG/2 ML VIAL IV PRN (05:49)
[2020-01-22] MEDS: SODIUM BICARBONATE 650 MG TAB PO SCH ×4 (05:49→22:23)
[2020-01-22 05:50] LABS: Albumin 2.8 g/dL (3.4-5.0); Calcium 8.5 mg/dL (8.5-10.1); Potassium 3.7 mmol/L (3.5-5.1)
[2020-01-22] MEDS: HYDROcodone-ACET 5/325MG TAB PO PRN ×3 (05:50→23:50)
[2020-01-22 05:58] LABS: BUN/Creatinine Ratio 18.5; Bilirubin, Total 0.3 mg/dL (0.2-1.0); Total Protein 6.9 g/dL (6.4-8.2)
[2020-01-22] MEDS: BUDESONIDE (INHALATION) 180 MCG IH IN SCH ×2 (06:20→21:16)
[2020-01-22 08:00] VITALS: BP 118/67
[2020-01-22] MEDS: Ensure Enlive Strawberry 8oz Bottle PO SCH ×2 (08:00→18:00)
[2020-01-22] MEDS: FOLIC ACID 1 MG TAB PO SCH (08:58)
[2020-01-22] MEDS: ASPirin-EC 81 mg tab PO SCH (08:58)
[2020-01-22] MEDS: LACTULOSE 20Gm/30ML SOLN PO SCH ×2 (08:58→22:00)
[2020-01-22] MEDS: METOPROLOL TARTRATE 25 MG TAB PO SCH ×2 (08:58→22:26)
[2020-01-22] MEDS: DOXYCYCLINE 100 MG TAB/CAP PO SCH ×2 (08:59→22:23)
[2020-01-22] MEDS: PANTOPRAZOLE 40 MG TAB PO SCH (08:59)
[2020-01-22] MEDS: amLODIPine BESYLATE 5 MG TAB PO SCH (08:59)
[2020-01-22] MEDS: ENOXAPARIN SOD 30 MG/0.3 ML SYRINGE SC SCH (08:59)
[2020-01-22] MEDS: D5W/SOD CHLO 0.9% 1,000 ML IV SCH (10:15)
[2020-01-22 12:00] VITALS: BP 101/60
[2020-01-22] MEDS ORDERED: MET25T PO (14:46)
[2020-01-22] MEDS ORDERED: ONDA-144 PO (14:46)
[2020-01-22] MEDS ORDERED: AML5T PO (14:46)
[2020-01-22] MEDS ORDERED: CHOL20007 PO (14:47)
[2020-01-22 16:52] VITALS: BP 110/56
[2020-01-22] MEDS: ATORVASTATIN 20 MG TAB PO SCH (17:32)
[2020-01-22 22:00] VITALS: BP 130/66
[2020-01-23] VITALS (8 sets, daily range): BP systolic 113–136; BP diastolic 62–75
[2020-01-23] MEDS: SODIUM BICARBONATE 650 MG TAB PO SCH ×4 (06:00→22:04)
[2020-01-23] MEDS: HYDROcodone-ACET 5/325MG TAB PO PRN ×3 (06:32→23:26)
[2020-01-23] MEDS: BUDESONIDE (INHALATION) 180 MCG IH IN SCH ×2 (06:51→21:45)
[2020-01-23] MEDS: Ensure Enlive Strawberry 8oz Bottle PO SCH ×2 (07:39→18:00)
[2020-01-23] MEDS: FOLIC ACID 1 MG TAB PO SCH (09:58)
[2020-01-23] MEDS: METOPROLOL TARTRATE 25 MG TAB PO SCH ×2 (09:59→22:05)
[2020-01-23] MEDS: ACETAMINOPHEN 325 MG TAB PO PRN (09:59)
[2020-01-23] MEDS: ENOXAPARIN SOD 30 MG/0.3 ML SYRINGE SC SCH (09:59)
[2020-01-23] MEDS: PANTOPRAZOLE 40 MG TAB PO SCH (09:59)
[2020-01-23] MEDS: ASPirin-EC 81 mg tab PO SCH (09:59)
[2020-01-23] MEDS: amLODIPine BESYLATE 5 MG TAB PO SCH (09:59)
[2020-01-23] MEDS: LACTULOSE 20Gm/30ML SOLN PO SCH ×2 (10:00→22:04)
[2020-01-23] MEDS: ONDANSETRON HCL 4 MG/2 ML VIAL IV PRN ×2 (10:00→23:32)
[2020-01-23] MEDS ORDERED: OMNIPAQUE ORAL SOLN 500ml 12mg/ml PO ONE (12:33)
[2020-01-23] MEDS ORDERED: IOHEXOL 350 MG/ML 100ML IJ ONE (15:47)
[2020-01-23] MEDS: ATORVASTATIN 20 MG TAB PO SCH (16:54)
[2020-01-24] MEDS: ACETAMINOPHEN 325 MG TAB PO PRN (01:52)
[2020-01-24 05:00] VITALS: BP 142/70
[2020-01-24] MEDS: HYDROcodone-ACET 5/325MG TAB PO PRN ×2 (05:22→12:07)
[2020-01-24] MEDS: SODIUM BICARBONATE 650 MG TAB PO SCH ×2 (06:33→12:06)
[2020-01-24] MEDS: BUDESONIDE (INHALATION) 180 MCG IH IN SCH ×2 (06:43→21:57)
[2020-01-24] MEDS: Ensure Enlive Strawberry 8oz Bottle PO SCH ×2 (08:00→17:09)
[2020-01-24 09:00] VITALS: BP 134/68
[2020-01-24] MEDS: LACTULOSE 20Gm/30ML SOLN PO SCH ×2 (09:54→22:00)
[2020-01-24] MEDS: PANTOPRAZOLE 40 MG TAB PO SCH (09:54)
[2020-01-24] MEDS: METOPROLOL TARTRATE 25 MG TAB PO SCH ×2 (09:54→22:01)
[2020-01-24] MEDS: FOLIC ACID 1 MG TAB PO SCH (09:55)
[2020-01-24] MEDS: amLODIPine BESYLATE 5 MG TAB PO SCH (09:55)
[2020-01-24] MEDS: ENOXAPARIN SOD 30 MG/0.3 ML SYRINGE SC SCH (09:55)
[2020-01-24] MEDS: ASPirin-EC 81 mg tab PO SCH (09:55)
[2020-01-24] MEDS: ONDANSETRON HCL 4 MG/2 ML VIAL IV PRN (11:14)
[2020-01-24] MEDS ORDERED: D5W/SOD CHL 0.45% 1,000 ML IV SCH ×2 (12:15→15:00)
[2020-01-24 13:00] VITALS: BP 120/74
[2020-01-24 13:39] LABS: Basophils # (auto) 0 10 ^3/uL (0-0.2); Basophils % (auto) 0.2 % (0.0-2.0); Eosinophils # (auto) 0.1 10 ^3/uL (0-0.8); Eosinophils % (auto) 1.7 % (0.0-7.0); Hematocrit 32.8 % (36.0-46.0); Hemoglobin 10.7 g/dL (12.2-16.2); Lymphocytes # (auto) 0.8 10 ^3/uL (0.4-5.4); Lymphocytes % (auto) 12.5 % (10.0-50.0); Mean Corpuscular Hemoglobin 30.5 pg (28.0-32.0); Mean Corpuscular Hgb Conc. 32.5 g/dL (32.0-36.0); Monocytes # (auto) 0.5 10 ^3/uL (0-1.3); Monocytes % (auto) 8.3 % (0.0-12.0); Neutrophils # (auto) 4.9 10 ^3/uL (1.6-8.6); Neutrophils % (auto) 77.3 % (37.0-80.0); Platelet Count (auto) 333 10^3/uL (140-450); Red Blood Cells 3.49 10^6/uL (4.0-5.20); Red Cell Distribution Width 14.2 % (11.8-14.3); White Blood Cell 6.4 10^3/uL (4.4-10.8)
[2020-01-24 14:21] LABS: Albumin 2.7 g/dL (3.4-5.0); BUN/Creatinine Ratio 18.1; Calcium 9.1 mg/dL (8.5-10.1); Potassium 3.2 mmol/L (3.5-5.1)
[2020-01-24 14:24] LABS: Bilirubin, Total 0.4 mg/dL (0.2-1.0); Total Protein 7.4 g/dL (6.4-8.2)
[2020-01-24] MEDS: POTASSIUM CHL 20MEQ/100ML 100 ML IV SCH ×2 (15:00→17:12)
[2020-01-24] MEDS: MORPHINE SULF INJ 2 MG/ML SYRINGE 1ML IV PRN ×2 (15:31→21:02)
[2020-01-24 16:38] VITALS: BP 120/60
[2020-01-24] MEDS: SUCRALFATE 1 GM/10 ML ORAL SUSP PO SCH ×3 (17:00→22:00)
[2020-01-24] MEDS: ATORVASTATIN 20 MG TAB PO SCH (17:11)
[2020-01-24 20:00] VITALS: BP 130/67
[2020-01-24 22:00] VITALS: BP 130/67
[2020-01-25] MEDS: MORPHINE SULF INJ 2 MG/ML SYRINGE 1ML IV PRN ×4 (02:52→21:25)
[2020-01-25 05:00] VITALS: BP 131/72
[2020-01-25] MEDS: SUCRALFATE 1 GM/10 ML ORAL SUSP PO SCH ×4 (06:37→21:24)
[2020-01-25 07:13] LABS: Potassium 4.3 mmol/L (3.5-5.1)
[2020-01-25] MEDS: BUDESONIDE (INHALATION) 180 MCG IH IN SCH ×2 (07:15→21:25)
[2020-01-25 07:23] LABS: Albumin 2.6 g/dL (3.4-5.0); BUN/Creatinine Ratio 16.9; Bilirubin, Total 0.5 mg/dL (0.2-1.0); Calcium 8.9 mg/dL (8.5-10.1); Total Protein 7.3 g/dL (6.4-8.2)
[2020-01-25] MEDS: Ensure Enlive Strawberry 8oz Bottle PO SCH ×2 (07:44→18:01)
[2020-01-25 09:00] VITALS: BP 117/66
[2020-01-25] MEDS: amLODIPine BESYLATE 5 MG TAB PO SCH (09:13)
[2020-01-25] MEDS: FOLIC ACID 1 MG TAB PO SCH (09:13)
[2020-01-25] MEDS: METOPROLOL TARTRATE 25 MG TAB PO SCH ×2 (09:13→21:24)
[2020-01-25] MEDS: PANTOPRAZOLE 40 MG TAB PO SCH (09:13)
[2020-01-25] MEDS: ASPirin-EC 81 mg tab PO SCH (09:13)
[2020-01-25] MEDS: ENOXAPARIN SOD 30 MG/0.3 ML SYRINGE SC SCH (09:14)
[2020-01-25] MEDS: ONDANSETRON HCL 4 MG/2 ML VIAL IV PRN ×2 (09:14→15:29)
[2020-01-25] MEDS: LACTULOSE 20Gm/30ML SOLN PO SCH ×2 (09:16→21:24)
[2020-01-25] MEDS ORDERED: POTASSIUM CHL 20 Meq TABLET PO ONE (11:45)
[2020-01-25 13:00] VITALS: BP 110/57
[2020-01-25 17:00] VITALS: BP 104/56
[2020-01-25] MEDS: FUROSEMIDE 20 MG/2 ML VIAL IV SCH (18:00)
[2020-01-25] MEDS: ATORVASTATIN 20 MG TAB PO SCH (18:01)
[2020-01-25 22:10] VITALS: BP 107/57
[2020-01-25] MEDS: HYDROcodone-ACET 5/325MG TAB PO PRN (22:59)
[2020-01-26] MEDS: MORPHINE SULF INJ 2 MG/ML SYRINGE 1ML IV PRN ×2 (02:32→09:30)
[2020-01-26 05:00] VITALS: BP 117/60
[2020-01-26] MEDS: SUCRALFATE 1 GM/10 ML ORAL SUSP PO SCH ×4 (05:44→21:48)
[2020-01-26] MEDS: FUROSEMIDE 20 MG/2 ML VIAL IV SCH (05:44)
[2020-01-26] MEDS: HYDROcodone-ACET 5/325MG TAB PO PRN ×3 (05:44→21:48)
[2020-01-26 06:46] LABS: Basophils # (auto) 0 10 ^3/uL (0-0.2); Eosinophils # (auto) 0.1 10 ^3/uL (0-0.8); Eosinophils % (auto) 1.9 % (0.0-7.0); Hematocrit 35.2 % (36.0-46.0); Hemoglobin 11.6 g/dL (12.2-16.2); Lymphocytes % (auto) 21.5 % (10.0-50.0); Mean Corpuscular Hemoglobin 31.1 pg (28.0-32.0); Mean Corpuscular Hgb Conc. 32.9 g/dL (32.0-36.0); Mean Corpuscular Volume 94.6 fL (80.0-100.0); Monocytes # (auto) 0.4 10 ^3/uL (0-1.3); Monocytes % (auto) 7.5 % (0.0-12.0); Neutrophils # (auto) 3.3 10 ^3/uL (1.6-8.6); Neutrophils % (auto) 68.1 % (37.0-80.0); Nucleated Red Blood Cells % 0.2 %; Platelet Count (auto) 409 10^3/uL (140-450); Red Blood Cells 3.72 10^6/uL (4.0-5.20); Red Cell Distribution Width 14.4 % (11.8-14.3); White Blood Cell 4.9 10^3/uL (4.4-10.8)
[2020-01-26 06:58] LABS: INR 1.03 (0.9-1.15); Partial Thromboplastin Time 29.4 sec (23.0-31.2)
[2020-01-26 07:06] LABS: Calcium 9.3 mg/dL (8.5-10.1); Magnesium 2.3 mg/dL (1.6-2.6); Potassium 4.9 mmol/L (3.5-5.1)
[2020-01-26 07:10] LABS: BUN/Creatinine Ratio 12.7; Bilirubin, Total 0.5 mg/dL (0.2-1.0); Phosphorus 2.2 mg/dL (2.5-4.90); Total Protein 8.7 g/dL (6.4-8.2)
[2020-01-26] MEDS: BUDESONIDE (INHALATION) 180 MCG IH IN SCH ×2 (07:24→22:09)
[2020-01-26 09:00] VITALS: BP 119/53
[2020-01-26] MEDS: LACTULOSE 20Gm/30ML SOLN PO SCH ×2 (09:27→21:47)
[2020-01-26] MEDS: FOLIC ACID 1 MG TAB PO SCH (09:27)
[2020-01-26] MEDS: Ensure Enlive Strawberry 8oz Bottle PO SCH ×2 (09:27→18:33)
[2020-01-26] MEDS: METOPROLOL TARTRATE 25 MG TAB PO SCH ×2 (09:28→21:48)
[2020-01-26] MEDS: ASPirin-EC 81 mg tab PO SCH (09:28)
[2020-01-26] MEDS: PANTOPRAZOLE 40 MG TAB PO SCH (09:29)
[2020-01-26] MEDS: amLODIPine BESYLATE 5 MG TAB PO SCH (09:29)
[2020-01-26] MEDS: ONDANSETRON HCL 4 MG/2 ML VIAL IV PRN (09:30)
[2020-01-26] MEDS: ENOXAPARIN SOD 30 MG/0.3 ML SYRINGE SC SCH (09:30)
[2020-01-26] MEDS ORDERED: POTASSIUM CHL 20 Meq TABLET PO SCH (10:00)
[2020-01-26 13:00] VITALS: BP_SYST 113; BP_SYST 161; BP_DIAS 64; BP_DIAS 97
[2020-01-26] MEDS ORDERED: D5W/SOD CHL 0.45%/KCL 20MEQ 1,000 ML IV SCH (13:30)
[2020-01-26] MEDS: D5W/SOD CHL 0.45% 1,000 ML IV SCH (16:17)
[2020-01-26 17:00] VITALS: BP 141/63
[2020-01-26] MEDS: ERGOCALCIFEROL 50,000 UNIT(1.25MG) CAP PO SCH (18:33)
[2020-01-26] MEDS: ATORVASTATIN 20 MG TAB PO SCH (18:35)
[2020-01-26 18:44] VITALS: BP 141/63
[2020-01-26] MEDS: traMADol HCL 50 MG TAB PO PRN (20:22)
[2020-01-26 22:00] VITALS: BP 120/64
[2020-01-27] MEDS: traMADol HCL 50 MG TAB PO PRN ×3 (01:31→17:58)
[2020-01-27] MEDS: D5W/SOD CHL 0.45% 1,000 ML IV SCH ×2 (04:41→22:55)
[2020-01-27] MEDS: HYDROcodone-ACET 5/325MG TAB PO PRN ×3 (04:41→20:59)
[2020-01-27 05:00] VITALS: BP 114/64
[2020-01-27] MEDS: SUCRALFATE 1 GM/10 ML ORAL SUSP PO SCH ×4 (05:54→21:54)
[2020-01-27] MEDS: BUDESONIDE (INHALATION) 180 MCG IH IN SCH ×2 (06:17→22:42)
[2020-01-27 08:00] VITALS: BP 125/66
[2020-01-27] MEDS: Ensure Enlive Strawberry 8oz Bottle PO SCH ×2 (08:56→17:58)
[2020-01-27] MEDS: ASPirin-EC 81 mg tab PO SCH (08:56)
[2020-01-27] MEDS: LACTULOSE 20Gm/30ML SOLN PO SCH ×3 (08:56→22:00)
[2020-01-27] MEDS: FOLIC ACID 1 MG TAB PO SCH (08:56)
[2020-01-27] MEDS: ENOXAPARIN SOD 30 MG/0.3 ML SYRINGE SC SCH (08:57)
[2020-01-27] MEDS: PANTOPRAZOLE 40 MG TAB PO SCH (08:57)
[2020-01-27] MEDS: METOPROLOL TARTRATE 25 MG TAB PO SCH ×2 (08:57→21:55)
[2020-01-27] MEDS: amLODIPine BESYLATE 5 MG TAB PO SCH (08:58)
[2020-01-27 11:52] VITALS: BP 122/71
[2020-01-27 17:00] VITALS: BP 112/62
[2020-01-27] MEDS: ATORVASTATIN 20 MG TAB PO SCH (17:58)
[2020-01-27 22:07] VITALS: BP 119/70
[2020-01-28] MEDS: traMADol HCL 50 MG TAB PO PRN (01:47)
[2020-01-28 04:10] VITALS: BP 137/75
[2020-01-28] MEDS: D5W/SOD CHL 0.45% 1,000 ML IV SCH (04:47)
[2020-01-28] MEDS: SUCRALFATE 1 GM/10 ML ORAL SUSP PO SCH ×3 (06:16→18:23)
[2020-01-28] MEDS: HYDROcodone-ACET 5/325MG TAB PO PRN (06:22)
[2020-01-28 08:00] VITALS: BP 132/78
[2020-01-28 09:35] LABS: BUN/Creatinine Ratio 9.7; Calcium 8.5 mg/dL (8.5-10.1); Potassium 3.7 mmol/L (3.5-5.1)
[2020-01-28] MEDS: LACTULOSE 20Gm/30ML SOLN PO SCH (11:01)
[2020-01-28] MEDS: FOLIC ACID 1 MG TAB PO SCH (11:01)
[2020-01-28] MEDS: METOPROLOL TARTRATE 25 MG TAB PO SCH (11:03)
[2020-01-28] MEDS: PANTOPRAZOLE 40 MG TAB PO SCH (11:04)
[2020-01-28] MEDS: ENOXAPARIN SOD 30 MG/0.3 ML SYRINGE SC SCH (11:04)
[2020-01-28] MEDS: ASPirin-EC 81 mg tab PO SCH (11:05)
[2020-01-28] MEDS: Ensure Enlive Strawberry 8oz Bottle PO SCH ×2 (11:06→18:23)
[2020-01-28] MEDS: amLODIPine BESYLATE 5 MG TAB PO SCH (11:06)
[2020-01-28 12:00] VITALS: BP 143/79
[2020-01-28] MEDS ORDERED: PANT40T PO (14:04)
[2020-01-28 16:32] VITALS: BP 143/79
[2020-01-28 17:00] VITALS: BP 126/75
[2020-01-28] MEDS: ATORVASTATIN 20 MG TAB PO SCH (18:23)
== END 2020-01-28 18:55 | disposition home or self-care (01) | DRG 137 ==
LOC: ER 22:34 → EDBD 22:34 → TELE 22:35 → TELE-EAST 01-18 08:42 → EAST 01-27 04:30 → CENTRAL 01-28 04:35
PROVIDERS: ADMIT Hospitalist; ATTEND Internal Medicine
DX: U07.1 COVID-19 (principal); N17.0 Acute kidney failure with tubular necrosis; I21.A1 Myocardial infarction type 2; E44.0 Moderate protein-calorie malnutrition; J12.89 Other viral pneumonia; E86.0 Dehydration; D64.9 Anemia, unspecified; E78.5 Hyperlipidemia, unspecified; I25.10 Atherosclerotic heart disease of native coronary artery without angina pectoris; E11.22 Type 2 diabetes mellitus with diabetic chronic kidney disease; E87.1 Hypo-osmolality and hyponatremia; E87.2 Acidosis; G89.29 Other chronic pain; N18.3 Chronic kidney disease, stage 3 (moderate); G62.9 Polyneuropathy, unspecified; F41.9 Anxiety disorder, unspecified; K21.9 Gastro-esophageal reflux disease without esophagitis; M10.9 Gout, unspecified; M54.9 Dorsalgia, unspecified; R00.0 Tachycardia, unspecified; I12.9 Hypertensive chronic kidney disease with stage 1 through stage 4 chronic kidney disease, or unspecified chronic kidney disease; Z68.1 Body mass index [BMI] 19.9 or less, adult; Z79.84 Long term (current) use of oral hypoglycemic drugs; Z86.73 Personal history of transient ischemic attack (TIA), and cerebral infarction without residual deficits; Z95.5 Presence of coronary angioplasty implant and graft
CPT/HCPCS: 36415; 71045; 71260; 74176; 74177; 74181; 76705; 80048; 80053; 80320; 81001; 82140; 82306; 82728; 83605; 83615; 83735; 83880; 84100; 84443; 84484; 85025; 85379; 85610; 85730; 86141; 87040; 87426; 93005; 94640; 97110; 97116; 97163; 97530; G0378; J1100; J2405; J3480; J7042

== ENCOUNTER 2020-06-09 20:12 | Inpatient (IN) | payer MEDICARE, OTHER ==
[~2020-06-09] VITALS: Ht 152.4 cm; Wt 50.4 kg
[~2020-06-09 20:12] MED LIST changes: +AMLO-489 PO; -AMLO5TAB15 PO; +CHOL20007 PO; -CLOP75TA41 PO; +CLOP75TA70 PO; -LISI-646 PO; -MET25T; +MET25T PO; -OMEP20TA85 PO; +ONDA-144 PO; +PANT40T PO; -ROSU1TAB15; +ROSU1TAB15 PO
[2020-06-09] MEDS ORDERED: SODIUM CHLORIDE 0.9% 1,000 ML IVB ONE (21:00)
[2020-06-09 22:36] LABS: Hemoglobin 8.7 g/dL (12.2-16.2)
[2020-06-09 22:38] LABS: Hematocrit 26.9 % (36.0-46.0); Mean Corpuscular Hemoglobin 26.6 pg (28.0-32.0); Mean Corpuscular Hgb Conc. 32.3 g/dL (32.0-36.0); Mean Corpuscular Volume 82.3 fL (80.0-100.0); Platelet Count (auto) 150 10^3/uL (140-450); Red Blood Cells 3.27 10^6/uL (4.0-5.20); Red Cell Distribution Width 16.2 % (11.8-14.3); White Blood Cell 11.9 10^3/uL (4.4-10.8)
[2020-06-09 22:43] LABS: Basophils % (manual) 0 (0.0-2.0); Blast Cells 0; Eosinophils % (manual) 0 (0-7); Myelocytes % 0; Promyelocytes % 0; Reactive Lymphocytes 0
[2020-06-09 22:54] LABS: Albumin 2.7 g/dL (3.4-5.0); Calcium 7.8 mg/dL (8.5-10.1); INR 1.16 (0.9-1.15); Magnesium 2.7 mg/dL (1.6-2.6); Partial Thromboplastin Time 37.2 sec (23.0-31.2); Potassium 4.1 mmol/L (3.5-5.1)
[2020-06-09 22:57] LABS: Lactic Acid w/Reflex 2.6 mmol/L (0.4-2.0)
[2020-06-09 22:59] LABS: BUN/Creatinine Ratio 11.7; Bilirubin, Total 0.5 mg/dL (0.2-1.0); Total Protein 7.1 g/dL (6.4-8.2)
[2020-06-09 23:18] LABS: Band Neutrophils % (manual) 13; Lymphocytes % (manual) 12 (10.0-50.0); Metamyelocytes % 1; Monocytes % (manual) 9 (0-12)
[2020-06-10] MEDS ORDERED: NITROGLYCERIN 0.4 MG SL TAB SL PRN (08:30)
[2020-06-10] MEDS ORDERED: MORPHINE SULF INJ 2 MG/ML SYRINGE 1ML IV PRN (08:30)
[2020-06-10 09:09] LABS: Basophils # (auto) 0 10 ^3/uL (0-0.2); Eosinophils # (auto) 0.1 10 ^3/uL (0-0.8); Hemoglobin 8.8 g/dL (12.2-16.2)
[2020-06-10 09:11] LABS: Basophils % (auto) 0.4 % (0.0-2.0); Hematocrit 26.8 % (36.0-46.0); Lymphocytes % (auto) 10.5 % (10.0-50.0); Mean Corpuscular Hemoglobin 26.6 pg (28.0-32.0); Mean Corpuscular Hgb Conc. 32.8 g/dL (32.0-36.0); Mean Corpuscular Volume 80.9 fL (80.0-100.0); Monocytes # (auto) 0.6 10 ^3/uL (0-1.3); Neutrophils # (auto) 7.5 10 ^3/uL (1.6-8.6); Neutrophils % (auto) 81.1 % (37.0-80.0); Nucleated Red Blood Cells % 0.1 %; Platelet Count (auto) 145 10^3/uL (140-450); Red Blood Cells 3.32 10^6/uL (4.0-5.20); Red Cell Distribution Width 16.5 % (11.8-14.3); White Blood Cell 9.3 10^3/uL (4.4-10.8)
[2020-06-10 09:29] LABS: Albumin 2.9 g/dL (3.4-5.0); Calcium 7.6 mg/dL (8.5-10.1); Potassium 4.1 mmol/L (3.5-5.1)
[2020-06-10 09:35] LABS: BUN/Creatinine Ratio 12.3; Bilirubin, Total 0.7 mg/dL (0.2-1.0); Total Protein 7.4 g/dL (6.4-8.2)
[2020-06-10] MEDS: cefTRIAXone 1GM/50ML D5W 50 ML IV SCH (09:42)
[2020-06-10] MEDS: SODIUM CHLORIDE 0.9% 1,000 ML IV SCH ×2 (09:42→22:00)
[2020-06-10] MEDS: ASPirin 81 mg TAB PO SCH (09:43)
[2020-06-10] MEDS: ASCORBIC ACID 500 MG TAB PO SCH ×2 (09:43→21:27)
[2020-06-10] MEDS: FAMOTIDINE (10MG/ML) 2ML VL IV SCH (09:43)
[2020-06-10] MEDS: MULTIPLE VITAMIN TAB PO SCH (09:44)
[2020-06-10] MEDS: ZINC SULFATE 220mg CAP or TAB PO SCH (09:44)
[2020-06-10] MEDS: ONDANSETRON HCL 4 MG/2 ML VIAL IV PRN ×2 (10:16→13:26)
[2020-06-10] MEDS: InsuLIN REG 1unit/0.01ml Soln (100units/ml) SC SCH ×3 (11:30→21:34)
[2020-06-10] MEDS: ACCU-CHEK COMFORT CURVE STRIP VI SCH ×3 (11:30→21:28)
[2020-06-10 13:03] LABS: Urine Bacteria NONE SEEN /hpf (None Seen); Urine Blood 2+ /uL (Negative); Urine Specific Gravity 1.009 (1.001-1.035); Urine WBC <1 /hpf (0 - 5)
[2020-06-10] MEDS: DEXTROSE (50%) 50ML SYRG IV PRN (13:06)
[2020-06-10] MEDS ORDERED: AMLO-496 PO (13:15)
[2020-06-10] MEDS ORDERED: ALLO100T PO (13:16)
[2020-06-10] MEDS ORDERED: HYDR-4072 PO (13:16)
[2020-06-10] MEDS ORDERED: TRI05TP TOP (13:22)
[2020-06-10] MEDS: MORPHINE SULFATE 4 MG/ML SYR/VIAL IV PRN (13:23)
[2020-06-10] MEDS ORDERED: LISI-646 PO (13:23)
[2020-06-10] MEDS ORDERED: PREG-108 PO (13:24)
[2020-06-10] MEDS ORDERED: IBUP800T27 PO (13:24)
[2020-06-10] MEDS: HYDROcodone-ACET 5/325MG TAB PO PRN ×2 (14:20→21:28)
[2020-06-10 21:00] VITALS: BP 124/65
[2020-06-10 22:00] VITALS: BP 118/58
[2020-06-11 04:30] VITALS: BP 121/55
[2020-06-11 05:35] LABS: Protein, Urine 194.3 mg/dL (0.0-11.9)
[2020-06-11] MEDS: InsuLIN REG 1unit/0.01ml Soln (100units/ml) SC SCH ×4 (05:50→21:57)
[2020-06-11] MEDS: ACCU-CHEK COMFORT CURVE STRIP VI SCH ×4 (06:10→21:57)
[2020-06-11] MEDS: DEXTROSE (50%) 50ML SYRG IV PRN (06:13)
[2020-06-11 08:00] VITALS: BP 125/60
[2020-06-11 08:12] LABS: Mean Corpuscular Hemoglobin 25.9 pg (28.0-32.0); Mean Corpuscular Hgb Conc. 31.9 g/dL (32.0-36.0); Mean Corpuscular Volume 81.3 fL (80.0-100.0); Platelet Count (auto) 151 10^3/uL (140-450); Red Blood Cells 3.08 10^6/uL (4.0-5.20)
[2020-06-11 08:38] LABS: Albumin 2.6 g/dL (3.4-5.0); Bilirubin, Total 0.4 mg/dL (0.2-1.0); Calcium 7.3 mg/dL (8.5-10.1); Total Protein 6.9 g/dL (6.4-8.2)
[2020-06-11 08:39] LABS: Basophils % (manual) 0 (0.0-2.0); Blast Cells 0; Monocytes % (manual) 0 (0-12); Promyelocytes % 0; Reactive Lymphocytes 0
[2020-06-11] MEDS: ZINC SULFATE 220mg CAP or TAB PO SCH (10:43)
[2020-06-11] MEDS: MULTIPLE VITAMIN TAB PO SCH (10:43)
[2020-06-11] MEDS: ASPirin 81 mg TAB PO SCH (10:43)
[2020-06-11] MEDS: ASCORBIC ACID 500 MG TAB PO SCH ×2 (10:43→21:57)
[2020-06-11] MEDS: FAMOTIDINE (10MG/ML) 2ML VL IV SCH (10:43)
[2020-06-11] MEDS: cefTRIAXone 1GM/50ML D5W 50 ML IV SCH (10:43)
[2020-06-11] MEDS: HYDROcodone-ACET 5/325MG TAB PO PRN (11:16)
[2020-06-11 12:26] LABS: Band Neutrophils % (manual) 36; Eosinophils % (manual) 4 (0-7); Lymphocytes % (manual) 7 (10.0-50.0); Metamyelocytes % 1; Myelocytes % 2
[2020-06-11] MEDS ORDERED: amLODIPine BESYLATE 5 MG TAB PO ONE (12:30)
[2020-06-11] MEDS ORDERED: CLOPIDOGREL BISULFATE 75 MG TAB PO ONE (12:30)
[2020-06-11] MEDS: MORPHINE SULFATE 4 MG/ML SYR/VIAL IV PRN (15:44)
[2020-06-11 16:00] VITALS: BP 141/66
[2020-06-11] MEDS: METOPROLOL TARTRATE 25 MG TAB PO SCH (21:57)
[2020-06-11 22:00] VITALS: BP 134/61
[2020-06-12] MEDS: MORPHINE SULFATE 4 MG/ML SYR/VIAL IV PRN ×3 (04:30→20:55)
[2020-06-12 05:00] VITALS: BP 127/64
[2020-06-12] MEDS: ACCU-CHEK COMFORT CURVE STRIP VI SCH ×4 (06:24→21:55)
[2020-06-12] MEDS: InsuLIN REG 1unit/0.01ml Soln (100units/ml) SC SCH ×4 (06:24→21:55)
[2020-06-12 08:00] VITALS: BP 134/66
[2020-06-12 08:07] LABS: Immunoglobulin G, Serum 1204 mg/dL (586-1602)
[2020-06-12 09:18] LABS: BUN/Creatinine Ratio 12.2; Calcium 7.7 mg/dL (8.5-10.1); Potassium 4.1 mmol/L (3.5-5.1)
[2020-06-12] MEDS: MULTIPLE VITAMIN TAB PO SCH (10:02)
[2020-06-12] MEDS: FAMOTIDINE (10MG/ML) 2ML VL IV SCH (10:02)
[2020-06-12] MEDS: cefTRIAXone 1GM/50ML D5W 50 ML IV SCH (10:02)
[2020-06-12] MEDS: ASCORBIC ACID 500 MG TAB PO SCH ×2 (10:03→21:55)
[2020-06-12] MEDS: CLOPIDOGREL BISULFATE 75 MG TAB PO SCH (10:03)
[2020-06-12] MEDS: METOPROLOL TARTRATE 25 MG TAB PO SCH ×2 (10:03→21:54)
[2020-06-12] MEDS: amLODIPine BESYLATE 5 MG TAB PO SCH (10:03)
[2020-06-12] MEDS: ASPirin 81 mg TAB PO SCH (10:03)
[2020-06-12] MEDS: ZINC SULFATE 220mg CAP or TAB PO SCH (10:03)
[2020-06-12] MEDS: ALLOPURINOL 100 MG TAB PO SCH (10:03)
[2020-06-12] MEDS: HYDROcodone-ACET 5/325MG TAB PO PRN ×2 (11:53→18:56)
[2020-06-12] MEDS: DOCUSATE SOD 100 MG CAP PO PRN (13:54)
[2020-06-12 16:00] VITALS: BP 128/64
[2020-06-12] MEDS: SODIUM BICARBONATE 650 MG TAB PO SCH (21:54)
[2020-06-12 22:00] VITALS: BP 134/63
[2020-06-13] MEDS: MORPHINE SULFATE 4 MG/ML SYR/VIAL IV PRN ×4 (02:55→20:45)
[2020-06-13 05:00] VITALS: BP 145/70
[2020-06-13 06:02] LABS: Calcium 8.1 mg/dL (8.5-10.1); Potassium 3.9 mmol/L (3.5-5.1)
[2020-06-13] MEDS: InsuLIN REG 1unit/0.01ml Soln (100units/ml) SC SCH ×4 (06:29→22:00)
[2020-06-13] MEDS: ACCU-CHEK COMFORT CURVE STRIP VI SCH ×4 (06:33→21:49)
[2020-06-13 07:55] VITALS: BP 139/76
[2020-06-13] MEDS ORDERED: ADENOSINE 46 MG in GIVE UN-DILUTED 0 ML IV STA (08:11)
[2020-06-13 09:16] VITALS: BP 116/63
[2020-06-13] MEDS: ASCORBIC ACID 500 MG TAB PO SCH ×2 (10:30→21:34)
[2020-06-13] MEDS: FAMOTIDINE (10MG/ML) 2ML VL IV SCH (10:30)
[2020-06-13] MEDS: cefTRIAXone 1GM/50ML D5W 50 ML IV SCH (10:30)
[2020-06-13] MEDS: MULTIPLE VITAMIN TAB PO SCH (10:30)
[2020-06-13] MEDS: amLODIPine BESYLATE 5 MG TAB PO SCH (10:31)
[2020-06-13] MEDS: METOPROLOL TARTRATE 25 MG TAB PO SCH ×2 (10:31→21:48)
[2020-06-13] MEDS: SODIUM BICARBONATE 650 MG TAB PO SCH ×2 (10:32→21:35)
[2020-06-13] MEDS: ASPirin 81 mg TAB PO SCH (10:32)
[2020-06-13] MEDS: CLOPIDOGREL BISULFATE 75 MG TAB PO SCH (10:32)
[2020-06-13] MEDS: ZINC SULFATE 220mg CAP or TAB PO SCH (10:32)
[2020-06-13] MEDS: ALLOPURINOL 100 MG TAB PO SCH (10:32)
[2020-06-13] MEDS: ONDANSETRON HCL 4 MG/2 ML VIAL IV PRN (14:46)
[2020-06-13 16:45] VITALS: BP 129/59
[2020-06-13] MEDS: ACETAMINOPHEN 325 MG TAB PO PRN (21:36)
[2020-06-14] MEDS: MORPHINE SULFATE 4 MG/ML SYR/VIAL IV PRN ×4 (00:57→21:15)
[2020-06-14] MEDS: HYDROcodone-ACET 5/325MG TAB PO PRN (01:43)
[2020-06-14] MEDS: DOCUSATE SOD 100 MG CAP PO PRN (06:00)
[2020-06-14] MEDS: ACCU-CHEK COMFORT CURVE STRIP VI SCH ×4 (06:51→23:12)
[2020-06-14] MEDS: InsuLIN REG 1unit/0.01ml Soln (100units/ml) SC SCH ×4 (06:52→22:00)
[2020-06-14 08:00] VITALS: BP 126/62
[2020-06-14] MEDS: cefTRIAXone 1GM/50ML D5W 50 ML IV SCH (08:13)
[2020-06-14 08:14] VITALS: BP 126/62
[2020-06-14] MEDS: FAMOTIDINE (10MG/ML) 2ML VL IV SCH (09:17)
[2020-06-14] MEDS: ASPirin 81 mg TAB PO SCH (09:17)
[2020-06-14] MEDS: MULTIPLE VITAMIN TAB PO SCH (09:18)
[2020-06-14] MEDS: METOPROLOL TARTRATE 25 MG TAB PO SCH ×2 (09:18→23:11)
[2020-06-14] MEDS: ZINC SULFATE 220mg CAP or TAB PO SCH (09:18)
[2020-06-14] MEDS: SODIUM BICARBONATE 650 MG TAB PO SCH (09:18)
[2020-06-14] MEDS: ASCORBIC ACID 500 MG TAB PO SCH ×2 (09:19→23:12)
[2020-06-14] MEDS: CLOPIDOGREL BISULFATE 75 MG TAB PO SCH (09:19)
[2020-06-14] MEDS: ALLOPURINOL 100 MG TAB PO SCH (09:19)
[2020-06-14] MEDS: amLODIPine BESYLATE 5 MG TAB PO SCH (09:19)
[2020-06-14 10:42] LABS: BUN/Creatinine Ratio 16.3; Calcium 8.1 mg/dL (8.5-10.1); Magnesium 2.9 mg/dL (1.6-2.6); Phosphorus 3.6 mg/dL (2.5-4.90); Potassium 3.2 mmol/L (3.5-5.1)
[2020-06-14] MEDS ORDERED: LACTULOSE 20Gm/30ML SOLN PO ONE (12:30)
[2020-06-14 16:00] VITALS: BP 118/63
[2020-06-14 22:00] VITALS: BP 133/59
[2020-06-14] MEDS ORDERED: POTASSIUM CHL 20 Meq TABLET PO ONE (22:00)
[2020-06-14] MEDS: ACETAMINOPHEN 325 MG TAB PO PRN (23:44)
[2020-06-15] MEDS: SODIUM BICARBONATE 650 MG TAB PO SCH ×5 (00:03→21:57)
[2020-06-15] MEDS: MORPHINE SULFATE 4 MG/ML SYR/VIAL IV PRN ×3 (03:56→19:40)
[2020-06-15 05:00] VITALS: BP 111/52
[2020-06-15] MEDS: ACCU-CHEK COMFORT CURVE STRIP VI SCH ×4 (05:11→21:58)
[2020-06-15] MEDS: HYDROcodone-ACET 5/325MG TAB PO PRN ×2 (05:11→23:33)
[2020-06-15] MEDS: InsuLIN REG 1unit/0.01ml Soln (100units/ml) SC SCH ×4 (06:15→21:59)
[2020-06-15 07:21] LABS: Calcium 8.8 mg/dL (8.5-10.1); Potassium 3.4 mmol/L (3.5-5.1)
[2020-06-15 07:22] LABS: BUN/Creatinine Ratio 16.9
[2020-06-15] MEDS: cefTRIAXone 1GM/50ML D5W 50 ML IV SCH (08:09)
[2020-06-15 08:10] VITALS: BP 124/57
[2020-06-15 08:11] VITALS: BP 124/57
[2020-06-15] MEDS ORDERED: POTASSIUM CHL 20 Meq TABLET PO ONE (09:00)
[2020-06-15] MEDS: ASPirin 81 mg TAB PO SCH (10:43)
[2020-06-15] MEDS: MULTIPLE VITAMIN TAB PO SCH (10:44)
[2020-06-15] MEDS: CLOPIDOGREL BISULFATE 75 MG TAB PO SCH (10:44)
[2020-06-15] MEDS: ZINC SULFATE 220mg CAP or TAB PO SCH (10:44)
[2020-06-15] MEDS: METOPROLOL TARTRATE 25 MG TAB PO SCH ×2 (10:45→21:58)
[2020-06-15] MEDS: amLODIPine BESYLATE 5 MG TAB PO SCH (10:46)
[2020-06-15] MEDS: CHOLECALCIFEROL (VITD3) 2,000 UNIT CAP/TAB PO SCH (10:46)
[2020-06-15] MEDS: FAMOTIDINE (10MG/ML) 2ML VL IV SCH (14:11)
[2020-06-15 16:04] VITALS: BP 130/58
[2020-06-15 22:00] VITALS: BP 118/50
[2020-06-15] MEDS: ACETAMINOPHEN 325 MG TAB PO PRN (22:04)
[2020-06-16] MEDS: HYDROcodone-ACET 5/325MG TAB PO PRN (04:21)
[2020-06-16 05:00] VITALS: BP 134/51
[2020-06-16] MEDS: ACCU-CHEK COMFORT CURVE STRIP VI SCH ×2 (05:56→11:30)
[2020-06-16] MEDS: SODIUM BICARBONATE 650 MG TAB PO SCH ×2 (05:56→12:34)
[2020-06-16] MEDS: InsuLIN REG 1unit/0.01ml Soln (100units/ml) SC SCH ×2 (06:03→11:30)
[2020-06-16 07:07] LABS: Calcium 8.3 mg/dL (8.5-10.1)
[2020-06-16 07:10] LABS: BUN/Creatinine Ratio 17.8
[2020-06-16 08:00] VITALS: BP 118/61
[2020-06-16] MEDS: cefTRIAXone 1GM/50ML D5W 50 ML IV SCH (09:14)
[2020-06-16] MEDS: MORPHINE SULFATE 4 MG/ML SYR/VIAL IV PRN (09:14)
[2020-06-16] MEDS: ASPirin 81 mg TAB PO SCH (09:16)
[2020-06-16] MEDS: METOPROLOL TARTRATE 25 MG TAB PO SCH (09:17)
[2020-06-16] MEDS: MULTIPLE VITAMIN TAB PO SCH (09:17)
[2020-06-16] MEDS: ZINC SULFATE 220mg CAP or TAB PO SCH (09:17)
[2020-06-16] MEDS: amLODIPine BESYLATE 5 MG TAB PO SCH (09:17)
[2020-06-16] MEDS: CLOPIDOGREL BISULFATE 75 MG TAB PO SCH (09:17)
[2020-06-16] MEDS: FAMOTIDINE (10MG/ML) 2ML VL IV SCH (09:18)
[2020-06-16] MEDS: CHOLECALCIFEROL (VITD3) 2,000 UNIT CAP/TAB PO SCH (09:18)
[2020-06-16] MEDS: ONDANSETRON HCL 4 MG/2 ML VIAL IV PRN (10:36)
[2020-06-16] MEDS ORDERED: POTASSIUM EFFERVESENT TAB 25 MEQ PO ONE (11:00)
[2020-06-16] MEDS ORDERED: POTASSIUM CHL 20 Meq TABLET PO ONE (11:00)
[2020-06-16 16:00] VITALS: BP 122/58
== END 2020-06-16 16:37 | disposition home or self-care (01) | DRG 198 ==
LOC: ER 20:12 → EDBD 20:12 → TELE 20:13 → TELE-CENTR 06-10 20:18
PROVIDERS: ADMIT Nurse Practitioner Family; ATTEND Family Medicine
PROC: 05H933Z Insertion of Infusion Device into Right Brachial Vein, Percutaneous Approach (ICD-10-PCS; principal; 2020-06-12)
PROC: B54MZZA Ultrasonography of Right Upper Extremity Veins, Guidance (ICD-10-PCS; 2020-06-12)
DX: R07.9 Chest pain, unspecified (principal); N17.0 Acute kidney failure with tubular necrosis; J18.9 Pneumonia, unspecified organism; E87.2 Acidosis; E78.5 Hyperlipidemia, unspecified; I12.9 Hypertensive chronic kidney disease with stage 1 through stage 4 chronic kidney disease, or unspecified chronic kidney disease; E11.22 Type 2 diabetes mellitus with diabetic chronic kidney disease; E11.65 Type 2 diabetes mellitus with hyperglycemia; Z20.822 Contact with and (suspected) exposure to COVID-19; R65.10 Systemic inflammatory response syndrome (SIRS) of non-infectious origin without acute organ dysfunction; D63.8 Anemia in other chronic diseases classified elsewhere; M19.90 Unspecified osteoarthritis, unspecified site; M10.9 Gout, unspecified; I25.2 Old myocardial infarction; Z95.5 Presence of coronary angioplasty implant and graft; Z90.49 Acquired absence of other specified parts of digestive tract; E44.0 Moderate protein-calorie malnutrition; E87.8 Other disorders of electrolyte and fluid balance, not elsewhere classified; Z86.16 Personal history of COVID-19; N18.30 Chronic kidney disease, stage 3 unspecified
CPT/HCPCS: 36415; 70450; 71045; 76775; 78452; 80048; 80053; 80061; 81001; 82306; 82550; 82570; 82784; 82962; 83036; 83605; 83735; 83880; 83883; 83970; 84100; 84155; 84156; 84165; 84300; 84443; 84484; 84550; 85007; 85025; 85027; 85610; 85730; 86038; 86160; 86334; 86703; 86803; 87040; 87340; 87426; 93005; 93017; 93306; 96361; 96365; 96366; 96375; G0378; J0153; J0696; J1815; J2405; J3490

== ENCOUNTER 2020-11-23 18:36 | Inpatient (IN) | payer MEDICARE, OTHER ==
[~2020-11-23] VITALS: Ht 152.4 cm; Wt 47.6 kg
[~2020-11-23 18:36] MED LIST changes: +ALLO100T PO; -ALLO300T2 PO; -AMLO-489 PO; +AMLO-496 PO; -CHOL20007 OR; -CHOL20007 PO; +HYDR-4072 PO; -HYDR1TAB97 PO; +IBUP800T27 PO; +LISI20TA28 PO; -MECL12.514 PO; -ONDA-144 PO; +PREG-108 PO; +TRI05TP TOP
[2020-11-23 20:51] LABS: Hemoglobin 7.5 g/dL (12.2-16.2); Mean Corpuscular Hemoglobin 24.7 pg (28.0-32.0)
[2020-11-23 20:53] LABS: Basophils # (auto) 0.1 10 ^3/uL (0-0.2); Basophils % (auto) 0.6 % (0.0-2.0); Eosinophils # (auto) 0.2 10 ^3/uL (0-0.8); Eosinophils % (auto) 2.5 % (0.0-7.0); Lymphocytes % (auto) 10.9 % (10.0-50.0); Mean Corpuscular Hgb Conc. 33.9 g/dL (32.0-36.0); Mean Corpuscular Volume 72.9 fL (80.0-100.0); Monocytes # (auto) 0.7 10 ^3/uL (0-1.3); Monocytes % (auto) 7.6 % (0.0-12.0); Neutrophils # (auto) 7.4 10 ^3/uL (1.6-8.6); Neutrophils % (auto) 78.4 % (37.0-80.0); Red Blood Cells 3.02 10^6/uL (4.0-5.20); White Blood Cell 9.5 10^3/uL (4.4-10.8)
[2020-11-23 20:56] LABS: Red Cell Distribution Width 20.5 % (11.8-14.3)
[2020-11-23 21:01] LABS: Urine Bacteria FEW /hpf (None Seen); Urine Blood Negative /uL (Negative); Urine Hyaline Cast FEW /lpf (0 - 2); Urine Specific Gravity 1.008 (1.001-1.035); Urine WBC 1 /hpf (0 - 5)
[2020-11-23 21:11] LABS: INR 0.98 (0.9-1.15); Partial Thromboplastin Time 24.6 sec (23.0-31.2)
[2020-11-23 21:16] LABS: Alanine Aminotransferase 21 U/L (13-56); Albumin 3.7 g/dL (3.4-5.0); Anion Gap 8 (5-15); Blood Urea Nitrogen 26 mg/dL (7-18); Calcium 8.7 mg/dL (8.5-10.1); Carbon Dioxide 18 mmol/L (21-32); Chloride 96 mmol/L (98-107); Glucose 85 mg/dL (74-106); Magnesium 2.1 mg/dL (1.6-2.6); Potassium 5.4 mmol/L (3.5-5.1); Sodium 122 mmol/L (136-145)
[2020-11-23 21:24] LABS: Alkaline Phosphatase 154 U/L (45-117); Aspartate Aminotransferase 36 U/L (15-37); Bilirubin, Total 0.4 mg/dL (0.2-1.0); GFR African American 48 mL/min; GFR Non-African American 40 mL/min; Total Protein 8.1 g/dL (6.4-8.2)
[2020-11-24] MEDS ORDERED: MORPHINE SULF INJ 2 MG/ML SYRINGE 1ML IV PRN (02:45)
[2020-11-24] MEDS ORDERED: NITROGLYCERIN 0.4 MG SL TAB SL PRN (02:45)
[2020-11-24] MEDS ORDERED: SODIUM ZIRCONIUM CYCL 10 GM PAK PO ONE (02:45)
[2020-11-24] MEDS ORDERED: SODIUM CHLORIDE 0.9% 1,000 ML IV SCH (02:45)
[2020-11-24] MEDS ORDERED: LABETALOL HCL 5 MG/ML 4ML SYRINGE IV ONE (03:30)
[2020-11-24 03:40] LABS: % Iron Saturation 9.5 % (15-50)
[2020-11-24 05:00] VITALS: BP 142/58
[2020-11-24 05:22] VITALS: BP 142/67
[2020-11-24] MEDS: ACETAMINOPHEN 325 MG TAB PO PRN (05:37)
[2020-11-24 09:00] VITALS: BP 161/90
[2020-11-24] MEDS: PANTOPRAZOLE 40 MG TAB PO SCH (09:30)
[2020-11-24] MEDS: FOLIC ACID 1 MG TAB PO SCH (09:31)
[2020-11-24] MEDS: METOPROLOL TARTRATE 25 MG TAB PO SCH ×2 (09:32→21:34)
[2020-11-24] MEDS: amLODIPine BESYLATE 5 MG TAB PO SCH (09:32)
[2020-11-24] MEDS ORDERED: CLOPIDOGREL BISULFATE 75 MG TAB PO SCH (10:00)
[2020-11-24 10:04] LABS: Protein, Urine 32.7 mg/dL (0.0-11.9)
[2020-11-24 10:37] LABS: BUN/Creatinine Ratio 16.7; Calcium 8.8 mg/dL (8.5-10.1); Potassium 4.3 mmol/L (3.5-5.1)
[2020-11-24] MEDS ORDERED: SODIUM FERR GLUC 62.5MG/5ML 125 MG in SODIUM CHL 0.9% 100 ML IV ONE (12:00)
[2020-11-24 13:00] VITALS: BP 141/73
[2020-11-24] MEDS: SODIUM BICARBONATE 50ML VIAL 150 ML in D5W 5% 1,000 ML IV SCH (13:33)
[2020-11-24] MEDS: ONDANSETRON HCL 4 MG/2 ML VIAL IV PRN ×2 (13:53→20:44)
[2020-11-24 17:00] VITALS: BP 137/69
[2020-11-24] MEDS: ATORVASTATIN 20 MG TAB PO SCH (21:34)
[2020-11-24 22:00] VITALS: BP 146/65
[2020-11-25] VITALS (11 sets, daily range): BP systolic 116–148; BP diastolic 53–73
[2020-11-25] MEDS: ACETAMINOPHEN 325 MG TAB PO PRN (00:47)
[2020-11-25] MEDS: SODIUM BICARBONATE 50ML VIAL 150 ML in D5W 5% 1,000 ML IV SCH (05:30)
[2020-11-25 05:48] LABS: Basophils # (auto) 0 10 ^3/uL (0-0.2); Eosinophils # (auto) 0 10 ^3/uL (0-0.8); Lymphocytes # (auto) 0.9 10 ^3/uL (0.4-5.4); Mean Corpuscular Hemoglobin 24.4 pg (28.0-32.0); Mean Corpuscular Hgb Conc. 34.1 g/dL (32.0-36.0); Monocytes # (auto) 0.4 10 ^3/uL (0-1.3); Monocytes % (auto) 7.1 % (0.0-12.0)
[2020-11-25 05:51] LABS: Basophils % (auto) 0.2 % (0.0-2.0); Eosinophils % (auto) 0.4 % (0.0-7.0); Hemoglobin 7.2 g/dL (12.2-16.2); Lymphocytes % (auto) 16.5 % (10.0-50.0); Mean Corpuscular Volume 71.7 fL (80.0-100.0); Neutrophils # (auto) 4.2 10 ^3/uL (1.6-8.6); Neutrophils % (auto) 75.8 % (37.0-80.0); Nucleated Red Blood Cells % 0.2 %; Red Blood Cells 2.93 10^6/uL (4.0-5.20); White Blood Cell 5.5 10^3/uL (4.4-10.8)
[2020-11-25 05:57] LABS: Red Cell Distribution Width 21.3 % (11.8-14.3)
[2020-11-25 06:09] LABS: Albumin 3.5 g/dL (3.4-5.0); Calcium 8.4 mg/dL (8.5-10.1); Potassium 3.6 mmol/L (3.5-5.1); Uric Acid 2.9 mg/dL (2.6-6.0)
[2020-11-25 06:12] LABS: Bilirubin, Total 0.3 mg/dL (0.2-1.0); Total Protein 7.8 g/dL (6.4-8.2)
[2020-11-25] MEDS: HYDROcodone-ACET 5/325MG TAB PO PRN (06:33)
[2020-11-25] MEDS: amLODIPine BESYLATE 5 MG TAB PO SCH (08:33)
[2020-11-25] MEDS: PANTOPRAZOLE 40 MG TAB PO SCH (08:33)
[2020-11-25] MEDS: FOLIC ACID 1 MG TAB PO SCH (08:33)
[2020-11-25] MEDS: METOPROLOL TARTRATE 25 MG TAB PO SCH ×2 (08:34→23:01)
[2020-11-25] MEDS: ONDANSETRON HCL 4 MG/2 ML VIAL IV PRN ×2 (10:52→21:52)
[2020-11-25] MEDS: SODIUM FERR GLUC 62.5MG/5ML 125 MG in SODIUM CHL 0.9% 100 ML IV SCH (11:47)
[2020-11-25] MEDS ORDERED: MECLIZINE HCL 25 MG TAB PO ONE (14:15)
[2020-11-25] MEDS ORDERED: SODIUM CHLORIDE 0.9% 1,000 ML IV ONE (14:15)
[2020-11-25] MEDS ORDERED: POLYETHYLENE GLYCOL 17 GM PWDR PO PRN (14:15)
[2020-11-25] MEDS ORDERED: MECLIZINE HCL 25 MG TAB PO PRN (14:15)
[2020-11-25] MEDS ORDERED: POLYETHYLENE GLYCOL 17 GM PWDR PO ONE (14:15)
[2020-11-25 22:47] LABS: Hematocrit 29.4 % (36.0-46.0); Hemoglobin 9.8 g/dL (12.2-16.2)
[2020-11-25] MEDS: ATORVASTATIN 20 MG TAB PO SCH (23:00)
[2020-11-26] MEDS: ONDANSETRON HCL 4 MG/2 ML VIAL IV PRN ×3 (01:51→11:45)
[2020-11-26 05:34] VITALS: BP 129/48
[2020-11-26 09:00] VITALS: BP 158/75
[2020-11-26] MEDS: amLODIPine BESYLATE 5 MG TAB PO SCH (10:14)
[2020-11-26] MEDS: FOLIC ACID 1 MG TAB PO SCH (10:14)
[2020-11-26] MEDS: METOPROLOL TARTRATE 25 MG TAB PO SCH ×2 (10:15→22:26)
[2020-11-26] MEDS: PANTOPRAZOLE 40 MG TAB PO SCH (10:15)
[2020-11-26] MEDS: SODIUM FERR GLUC 62.5MG/5ML 125 MG in SODIUM CHL 0.9% 100 ML IV SCH (11:45)
[2020-11-26] MEDS: ACETAMINOPHEN 325 MG TAB PO PRN (12:05)
[2020-11-26 13:00] VITALS: BP 164/85
[2020-11-26] MEDS: HYDROcodone-ACET 5/325MG TAB PO PRN ×2 (14:50→22:27)
[2020-11-26 16:34] LABS: Potassium 4.6 mmol/L (3.5-5.1)
[2020-11-26 17:00] VITALS: BP 153/85
[2020-11-26 22:08] VITALS: BP 145/71
[2020-11-26] MEDS: ATORVASTATIN 20 MG TAB PO SCH (22:26)
[2020-11-27] MEDS: HYDROcodone-ACET 5/325MG TAB PO PRN ×3 (04:33→17:30)
[2020-11-27 05:43] VITALS: BP 139/72
[2020-11-27 09:00] VITALS: BP 143/75
[2020-11-27] MEDS ORDERED: LIDOCAINE VISCOUS 2% 15ML UD ONE (09:56)
[2020-11-27] MEDS ORDERED: SODIUM CHLORIDE LOCK 0 ML ONE (09:56)
[2020-11-27] MEDS ORDERED: diphenhdrAMINE HCL 50 MG/1 ML VL ONE (09:56)
[2020-11-27] MEDS ORDERED: MIDAZOLAM HCL 5 MG/ML-1ML VIAL ONE (09:56)
[2020-11-27] MEDS ORDERED: fentaNYL CITRATE 100 MCG/2 ML VL ONE (09:57)
[2020-11-27] MEDS: FOLIC ACID 1 MG TAB PO SCH (09:58)
[2020-11-27] MEDS: PANTOPRAZOLE 40 MG TAB PO SCH (10:00)
[2020-11-27] MEDS: amLODIPine BESYLATE 5 MG TAB PO SCH (10:00)
[2020-11-27] MEDS: METOPROLOL TARTRATE 25 MG TAB PO SCH ×2 (10:01→21:47)
[2020-11-27] MEDS ORDERED: cefTRIAXone 1GM/50ML D5W 50 ML IV ONE (11:30)
[2020-11-27] MEDS: SODIUM FERR GLUC 62.5MG/5ML 125 MG in SODIUM CHL 0.9% 100 ML IV SCH (12:00)
[2020-11-27 13:00] VITALS: BP 153/85
[2020-11-27 14:00] LABS: Basophils # (auto) 0 10 ^3/uL (0-0.2); Eosinophils # (auto) 0.1 10 ^3/uL (0-0.8); Hemoglobin 9.6 g/dL (12.2-16.2); Lymphocytes # (auto) 1.5 10 ^3/uL (0.4-5.4); Mean Corpuscular Hgb Conc. 32.8 g/dL (32.0-36.0)
[2020-11-27] MEDS: SUCRALFATE 1 GM/10 ML ORAL SUSP PO SCH ×3 (14:00→21:46)
[2020-11-27 14:01] LABS: Basophils % (auto) 0.6 % (0.0-2.0); Eosinophils % (auto) 1.8 % (0.0-7.0); Hematocrit 29.2 % (36.0-46.0); Lymphocytes % (auto) 24.9 % (10.0-50.0); Mean Corpuscular Volume 76.3 fL (80.0-100.0); Monocytes # (auto) 0.5 10 ^3/uL (0-1.3); Monocytes % (auto) 8.5 % (0.0-12.0); Neutrophils # (auto) 3.7 10 ^3/uL (1.6-8.6); Neutrophils % (auto) 64.2 % (37.0-80.0); Red Blood Cells 3.82 10^6/uL (4.0-5.20); White Blood Cell 5.8 10^3/uL (4.4-10.8)
[2020-11-27 14:03] LABS: Red Cell Distribution Width 20.8 % (11.8-14.3)
[2020-11-27 14:15] LABS: INR 1.01 (0.9-1.15); Partial Thromboplastin Time 30.2 sec (23.0-31.2)
[2020-11-27 14:23] LABS: BUN/Creatinine Ratio 12.2; Calcium 9.3 mg/dL (8.5-10.1); Potassium 4.2 mmol/L (3.5-5.1)
[2020-11-27 16:57] VITALS: BP 160/72
[2020-11-27] MEDS: ATORVASTATIN 20 MG TAB PO SCH (21:46)
[2020-11-27 22:00] VITALS: BP 149/64
[2020-11-28] MEDS: HYDROcodone-ACET 5/325MG TAB PO PRN ×4 (00:42→18:46)
[2020-11-28 05:00] VITALS: BP 147/77
[2020-11-28] MEDS: SUCRALFATE 1 GM/10 ML ORAL SUSP PO SCH ×4 (06:14→21:58)
[2020-11-28] MEDS: FOLIC ACID 1 MG TAB PO SCH (08:15)
[2020-11-28] MEDS: amLODIPine BESYLATE 5 MG TAB PO SCH (08:16)
[2020-11-28] MEDS: METOPROLOL TARTRATE 25 MG TAB PO SCH ×2 (08:16→21:59)
[2020-11-28] MEDS: PANTOPRAZOLE 40 MG TAB PO SCH (08:17)
[2020-11-28] MEDS: cefTRIAXone 1GM/50ML D5W 50 ML IV SCH (08:17)
[2020-11-28 09:00] VITALS: BP 137/68
[2020-11-28] MEDS: SODIUM FERR GLUC 62.5MG/5ML 125 MG in SODIUM CHL 0.9% 100 ML IV SCH (12:23)
[2020-11-28 13:00] VITALS: BP 140/78
[2020-11-28 17:00] VITALS: BP 154/77
[2020-11-28] MEDS: ATORVASTATIN 20 MG TAB PO SCH (21:59)
[2020-11-28 23:53] VITALS: BP 144/73
[2020-11-29] MEDS: HYDROcodone-ACET 5/325MG TAB PO PRN ×3 (00:45→19:38)
[2020-11-29] MEDS ORDERED: MORPHINE SULF INJ 2 MG/ML SYRINGE 1ML IV ONE (01:00)
[2020-11-29 05:41] VITALS: BP 163/76
[2020-11-29] MEDS: SUCRALFATE 1 GM/10 ML ORAL SUSP PO SCH ×3 (05:48→21:48)
[2020-11-29 07:11] LABS: Basophils # (auto) 0 10 ^3/uL (0-0.2); Eosinophils # (auto) 0.1 10 ^3/uL (0-0.8); Hemoglobin 11.8 g/dL (12.2-16.2); Monocytes # (auto) 0.5 10 ^3/uL (0-1.3); Neutrophils # (auto) 3.5 10 ^3/uL (1.6-8.6); Nucleated Red Blood Cells % 0.1 %
[2020-11-29 07:13] LABS: Basophils % (auto) 0.6 % (0.0-2.0); Eosinophils % (auto) 1.2 % (0.0-7.0); Hematocrit 36.8 % (36.0-46.0); Lymphocytes # (auto) 1.7 10 ^3/uL (0.4-5.4); Lymphocytes % (auto) 28.7 % (10.0-50.0); Mean Corpuscular Hemoglobin 24.9 pg (28.0-32.0); Mean Corpuscular Hgb Conc. 32.2 g/dL (32.0-36.0); Mean Corpuscular Volume 77.3 fL (80.0-100.0); Monocytes % (auto) 8.8 % (0.0-12.0); Neutrophils % (auto) 60.7 % (37.0-80.0); Red Blood Cells 4.76 10^6/uL (4.0-5.20); White Blood Cell 5.8 10^3/uL (4.4-10.8)
[2020-11-29 07:19] LABS: Red Cell Distribution Width 20.5 % (11.8-14.3)
[2020-11-29 07:41] LABS: Anion Gap 9 (5-15); Blood Urea Nitrogen 24 mg/dL (7-18); Calcium 9.7 mg/dL (8.5-10.1); Carbon Dioxide 22 mmol/L (21-32); Chloride 106 mmol/L (98-107); GFR African American 56 mL/min; GFR Non-African American 46 mL/min; Glucose 120 mg/dL (74-106); Potassium 4.3 mmol/L (3.5-5.1); Sodium 137 mmol/L (136-145)
[2020-11-29 09:00] VITALS: BP 148/82
[2020-11-29] MEDS: FOLIC ACID 1 MG TAB PO SCH (09:18)
[2020-11-29] MEDS: PANTOPRAZOLE 40 MG TAB PO SCH (09:18)
[2020-11-29] MEDS: cefTRIAXone 1GM/50ML D5W 50 ML IV SCH (09:18)
[2020-11-29] MEDS: amLODIPine BESYLATE 5 MG TAB PO SCH (09:19)
[2020-11-29] MEDS: METOPROLOL TARTRATE 25 MG TAB PO SCH ×2 (09:19→21:49)
[2020-11-29] MEDS ORDERED: LIDOCAINE VISCOUS 2% 15ML UD ONE (11:29)
[2020-11-29] MEDS ORDERED: SODIUM CHLORIDE LOCK 10 ML ONE (11:29)
[2020-11-29] MEDS: MIDAZOLAM HCL 5 MG/ML-1ML VIAL ONE ×2 (12:21→12:24)
[2020-11-29] MEDS: fentaNYL CITRATE 100 MCG/2 ML VL ONE ×2 (12:21→12:24)
[2020-11-29] MEDS: diphenhdrAMINE HCL 50 MG/1 ML VL ONE ×2 (12:21→12:24)
[2020-11-29] MEDS ORDERED: OMNIPAQUE ORAL SOLN 500ml 12mg/ml PO ONE (12:35)
[2020-11-29] MEDS: SODIUM FERR GLUC 62.5MG/5ML 125 MG in SODIUM CHL 0.9% 100 ML IV SCH (15:30)
[2020-11-29 17:00] VITALS: BP 154/83
[2020-11-29] MEDS: ATORVASTATIN 20 MG TAB PO SCH (21:48)
[2020-11-29 22:00] VITALS: BP 130/64
[2020-11-30] MEDS: HYDROcodone-ACET 5/325MG TAB PO PRN ×3 (01:26→10:14)
[2020-11-30 05:00] VITALS: BP 156/77
[2020-11-30 05:56] LABS: Basophils # (auto) 0 10 ^3/uL (0-0.2); Eosinophils # (auto) 0.1 10 ^3/uL (0-0.8); Hemoglobin 10.7 g/dL (12.2-16.2); Lymphocytes # (auto) 1.7 10 ^3/uL (0.4-5.4); Mean Corpuscular Volume 77.5 fL (80.0-100.0); Monocytes # (auto) 0.4 10 ^3/uL (0-1.3); Neutrophils # (auto) 3.4 10 ^3/uL (1.6-8.6); Nucleated Red Blood Cells % 0.1 %
[2020-11-30] MEDS: SUCRALFATE 1 GM/10 ML ORAL SUSP PO SCH ×2 (05:56→11:38)
[2020-11-30 06:00] LABS: Basophils % (auto) 0.8 % (0.0-2.0); Eosinophils % (auto) 1.1 % (0.0-7.0); Hematocrit 33.3 % (36.0-46.0); Lymphocytes % (auto) 30.4 % (10.0-50.0); Mean Corpuscular Hgb Conc. 32.2 g/dL (32.0-36.0); Monocytes % (auto) 6.6 % (0.0-12.0); Neutrophils % (auto) 61.1 % (37.0-80.0); Red Blood Cells 4.29 10^6/uL (4.0-5.20); White Blood Cell 5.5 10^3/uL (4.4-10.8)
[2020-11-30 06:36] LABS: Potassium 4.1 mmol/L (3.5-5.1)
[2020-11-30 06:40] LABS: BUN/Creatinine Ratio 18.3; Calcium 9.7 mg/dL (8.5-10.1)
[2020-11-30 09:00] VITALS: BP 164/87
[2020-11-30] MEDS: ACETAMINOPHEN 325 MG TAB PO PRN (09:26)
[2020-11-30] MEDS: FOLIC ACID 1 MG TAB PO SCH (09:26)
[2020-11-30] MEDS: cefTRIAXone 1GM/50ML D5W 50 ML IV SCH (09:26)
[2020-11-30] MEDS: METOPROLOL TARTRATE 25 MG TAB PO SCH (09:27)
[2020-11-30] MEDS: amLODIPine BESYLATE 5 MG TAB PO SCH (09:27)
[2020-11-30] MEDS: PANTOPRAZOLE 40 MG TAB PO SCH (09:28)
[2020-11-30] MEDS ORDERED: PANT40T PO (10:56)
[2020-11-30] MEDS ORDERED: SUCR1SUS10 PO (10:56)
[2020-11-30] MEDS: SODIUM FERR GLUC 62.5MG/5ML 125 MG in SODIUM CHL 0.9% 100 ML IV SCH (12:00)
== END 2020-11-30 12:50 | disposition home or self-care (01) | DRG 241 ==
LOC: EDBD 18:36 → ER 18:36 → TELE-WESTW 11-24 02:35
PROVIDERS: ADMIT Nurse Practitioner Family; ATTEND Internal Medicine Pulmonary Disease
PROC: 30233N1 Transfusion of Nonautologous Red Blood Cells into Peripheral Vein, Percutaneous Approach (ICD-10-PCS; principal; 2020-11-25)
PROC: 0DB98ZX Excision of Duodenum, Via Natural or Artificial Opening Endoscopic, Diagnostic (ICD-10-PCS; 2020-11-29)
PROC: 0DB68ZX Excision of Stomach, Via Natural or Artificial Opening Endoscopic, Diagnostic (ICD-10-PCS; 2020-11-29)
DX: K29.00 Acute gastritis without bleeding (principal); N17.0 Acute kidney failure with tubular necrosis; D50.9 Iron deficiency anemia, unspecified; E87.1 Hypo-osmolality and hyponatremia; E87.5 Hyperkalemia; N18.31 Chronic kidney disease, stage 3a; E87.6 Hypokalemia; E11.22 Type 2 diabetes mellitus with diabetic chronic kidney disease; I25.10 Atherosclerotic heart disease of native coronary artery without angina pectoris; I13.10 Hypertensive heart and chronic kidney disease without heart failure, with stage 1 through stage 4 chronic kidney disease, or unspecified chronic kidney disease; I70.8 Atherosclerosis of other arteries; N39.0 Urinary tract infection, site not specified; Z20.822 Contact with and (suspected) exposure to COVID-19; K44.9 Diaphragmatic hernia without obstruction or gangrene; M10.9 Gout, unspecified; Z95.5 Presence of coronary angioplasty implant and graft; Z90.49 Acquired absence of other specified parts of digestive tract
CPT/HCPCS: 36415; 43239; 70450; 71045; 74176; 80048; 80053; 81001; 82270; 82570; 83036; 83540; 83550; 83605; 83615; 83735; 83880; 83930; 83935; 84156; 84300; 84439; 84443; 84484; 84550; 85014; 85018; 85025; 85045; 85049; 85610; 85730; 86850; 86880; 86900; 86901; 86920; 87426; 93005; 96361; 96374; 97116; 97163; 97530; G0378; J0696; J2250; J2405; J3490

== ENCOUNTER 2021-01-15 01:11 | Emergency (ER) | payer MEDICARE, OTHER ==
[~2021-01-15] VITALS: Ht 157.5 cm; Wt 56.7 kg
[~2021-01-15 01:11] MED LIST changes: +CHOL20007 PO; -IBUP800T27 PO; +MECL25TA18 PO; +MULT1TAB65 PO; +SUCR1SUS10 PO
[2021-01-15] MEDS ORDERED: SODIUM CHLORIDE 0.9% 1,000 ML IV ONE (02:00)
[2021-01-15] MEDS ORDERED: fentaNYL CITRATE 100 MCG/2 ML VL IV ONE (02:00)
[2021-01-15] MEDS ORDERED: LABETALOL HCL 5 MG/ML 4ML SYRINGE IV ONE (02:00)
[2021-01-15] MEDS ORDERED: LORazepam 2MG/ML-1ML VIAL ONE (02:01)
[2021-01-15 02:52] LABS: Basophils # (auto) 0 10 ^3/uL (0-0.2); Basophils % (auto) 0.3 % (0.0-2.0); Eosinophils # (auto) 0.2 10 ^3/uL (0-0.8); Eosinophils % (auto) 2.8 % (0.0-7.0); Hematocrit 39.4 % (36.0-46.0); Lymphocytes # (auto) 2.9 10 ^3/uL (0.4-5.4); Lymphocytes % (auto) 36.5 % (10.0-50.0); Mean Corpuscular Hemoglobin 28.9 pg (28.0-32.0); Mean Corpuscular Hgb Conc. 32.9 g/dL (32.0-36.0); Mean Corpuscular Volume 87.7 fL (80.0-100.0); Monocytes # (auto) 0.5 10 ^3/uL (0-1.3); Neutrophils # (auto) 4.3 10 ^3/uL (1.6-8.6); Neutrophils % (auto) 54.4 % (37.0-80.0); Nucleated Red Blood Cells % 0.1 %; Red Blood Cells 4.49 10^6/uL (4.0-5.20)
[2021-01-15 02:56] LABS: Red Cell Distribution Width 24.2 % (11.8-14.3)
[2021-01-15 02:57] LABS: Albumin 3.6 g/dL (3.4-5.0); Anion Gap 12 (5-15); Blood Urea Nitrogen 19 mg/dL (7-18); Calcium 8.9 mg/dL (8.5-10.1); Carbon Dioxide 14 mmol/L (21-32); Chloride 98 mmol/L (98-107); Glucose 114 mg/dL (74-106); Sodium 124 mmol/L (136-145)
[2021-01-15 02:58] LABS: Alanine Aminotransferase 30 U/L (13-56); Aspartate Aminotransferase 34 U/L (15-37); BUN/Creatinine Ratio 10.7; GFR African American 36 mL/min; GFR Non-African American 29 mL/min
[2021-01-15 03:01] LABS: Alkaline Phosphatase 112 U/L (45-117); Bilirubin, Total 0.4 mg/dL (0.2-1.0); Total Protein 8.4 g/dL (6.4-8.2)
[2021-01-15 03:03] LABS: Lactic Acid w/Reflex 7.2 mmol/L (0.4-2.0)
[2021-01-15 03:06] LABS: Potassium 6.3 mmol/L (3.5-5.1)
[2021-01-15 03:12] LABS: Amylase 116 U/L (25-115); Lipase 137 U/L (73-393)
[2021-01-15] MEDS ORDERED: CALCIUM GLUC 1,000mg/50ml-NS 50 ML IV ONE (04:30)
[2021-01-15] MEDS ORDERED: SODIUM CHLORIDE 0.9% 2,000 ML IV ONE (04:30)
[2021-01-15] MEDS ORDERED: DEXTROSE (50%) 50ML SYRG IV ONE (04:30)
[2021-01-15] MEDS ORDERED: SODIUM ZIRCONIUM CYCL 10 GM PAK PO ONE (04:30)
[2021-01-15] MEDS ORDERED: InsuLIN REG 1unit/0.01ml Soln (100units/ml) IV ONE (04:30)
[2021-01-15] MEDS ORDERED: SODIUM BICARBONATE 8.4 % INJ 50ML VIAL IV ONE (04:30)
[2021-01-15] MEDS ORDERED: levoFLOXacin 500MG 100 ML IV ONE (04:30)
[2021-01-15] MEDS ORDERED: IOHEXOL 300 MG/ML 100ML BOTTLE IJ ONE (04:36)
[2021-01-15 04:49] VITALS: BP 119/58
[2021-01-15] MEDS ORDERED: levETIRAcetam 500 MG/5ML INJ IV ONE (04:54)
[2021-01-15 05:03] LABS: INR 1.03 (0.9-1.15); Partial Thromboplastin Time 29.1 sec (23.6-33.0)
== END 2021-01-15 05:28 ==
LOC: EDBD 01:11 → ER 01:16
DX: R41.82 Altered mental status, unspecified (principal); G93.41 Metabolic encephalopathy; R10.84 Generalized abdominal pain; R53.1 Weakness; R56.9 Unspecified convulsions; I60.9 Nontraumatic subarachnoid hemorrhage, unspecified; E87.5 Hyperkalemia; R11.2 Nausea with vomiting, unspecified; E11.9 Type 2 diabetes mellitus without complications; E78.00 Pure hypercholesterolemia, unspecified; I10 Essential (primary) hypertension; I25.2 Old myocardial infarction; Z86.73 Personal history of transient ischemic attack (TIA), and cerebral infarction without residual deficits; Z88.8 Allergy status to other drugs, medicaments and biological substances; Z88.6 Allergy status to analgesic agent; Z79.899 Other long term (current) drug therapy; Z90.89 Acquired absence of other organs; Z90.49 Acquired absence of other specified parts of digestive tract
CPT/HCPCS: 36415; 70450; 71045; 74176; 80053; 82150; 83605; 83690; 83880; 84484; 85025; 85610; 85730; 93005; 96361; 96365; 96375; 99285; J0610; J1815; J1953; J2060; J7042; J7060

== ENCOUNTER 2021-02-04 23:36 | Inpatient (IN) | payer MEDICARE, OTHER ==
[~2021-02-04] VITALS: Ht 154.9 cm; Wt 52.0 kg
[~2021-02-04 23:36] MED LIST changes: -CHOL20007 PO
[2021-02-05 00:44] LABS: INR 1.01 (0.9-1.15); Partial Thromboplastin Time 28.8 sec (23.6-33.0)
[2021-02-05 00:48] LABS: Alanine Aminotransferase 41 U/L (13-56); Albumin 4.2 g/dL (3.4-5.0); Amylase 129 U/L (25-115); Anion Gap 12 (5-15); Aspartate Aminotransferase 23 U/L (15-37); BUN/Creatinine Ratio 10.2; Blood Urea Nitrogen 15 mg/dL (7-18); Calcium 9.2 mg/dL (8.5-10.1); Carbon Dioxide 22 mmol/L (21-32); Chloride 91 mmol/L (98-107); GFR African American 44 mL/min; GFR Non-African American 37 mL/min; Glucose 106 mg/dL (74-106); Lipase 156 U/L (73-393); Magnesium 2.2 mg/dL (1.6-2.6); Potassium 4.3 mmol/L (3.5-5.1); Sodium 125 mmol/L (136-145)
[2021-02-05 00:50] LABS: Alkaline Phosphatase 125 U/L (45-117); Bilirubin, Total 0.4 mg/dL (0.2-1.0); Total Protein 8.9 g/dL (6.4-8.2)
[2021-02-05 01:29] LABS: Basophils # (auto) 0 10 ^3/uL (0-0.2); Basophils % (auto) 0.4 % (0.0-2.0); Eosinophils # (auto) 0.2 10 ^3/uL (0-0.8); Eosinophils % (auto) 2.8 % (0.0-7.0); Hematocrit 39.1 % (36.0-46.0); Hemoglobin 13.3 g/dL (12.2-16.2); Lymphocytes % (auto) 15.5 % (10.0-50.0); Mean Corpuscular Hemoglobin 30.8 pg (28.0-32.0); Mean Corpuscular Hgb Conc. 34.1 g/dL (32.0-36.0); Mean Corpuscular Volume 90.2 fL (80.0-100.0); Monocytes # (auto) 0.3 10 ^3/uL (0-1.3); Monocytes % (auto) 3.8 % (0.0-12.0); Neutrophils # (auto) 5.2 10 ^3/uL (1.6-8.6); Neutrophils % (auto) 77.5 % (37.0-80.0); Nucleated Red Blood Cells % 0.1 %; Red Blood Cells 4.33 10^6/uL (4.0-5.20); Red Cell Distribution Width 20.7 % (11.8-14.3); White Blood Cell 6.7 10^3/uL (4.4-10.8)
[2021-02-05 01:46] LABS: Urine Bacteria NONE SEEN /hpf (None Seen); Urine Blood Negative /uL (Negative); Urine Specific Gravity 1.004 (1.001-1.035); Urine WBC <1 /hpf (0 - 5)
[2021-02-05] MEDS ORDERED: MORPHINE SULFATE 4 MG/ML SYR/VIAL IV ONE (02:45)
[2021-02-05] MEDS ORDERED: ONDANSETRON HCL 4 MG/2 ML VIAL IV ONE (02:45)
[2021-02-05] MEDS ORDERED: FAMOTIDINE (10MG/ML) 2ML VL IV ONE (06:15)
[2021-02-05] MEDS ORDERED: SUCRALFATE 1 GM/10 ML ORAL SUSP PO ONE (06:15)
[2021-02-05] MEDS ORDERED: LIDOCAINE VISCOUS 2% 15ML UD PO ONE (06:15)
[2021-02-05] MEDS ORDERED: SODIUM CHLORIDE 0.9% 500 ML IV ONE ×2 (06:15→06:30)
[2021-02-05] MEDS ORDERED: NITROGLYCERIN 0.4 MG SL TAB SL PRN (09:15)
[2021-02-05] MEDS ORDERED: MORPHINE SULFATE INJECTION 2 MG/ML SYRG IV PRN (09:15)
[2021-02-05] MEDS ORDERED: PREGABALIN 25 MG CAP PO SCH (10:00)
[2021-02-05] MEDS ORDERED: ROSUVASTATIN CALCIUM 40 MG PO SCH (10:00)
[2021-02-05] MEDS: ONDANSETRON HCL 4 MG/2 ML VIAL IV PRN ×2 (10:07→16:53)
[2021-02-05] MEDS: MORPHINE SULFATE INJECTION 2 MG/ML SYRG IV PRN ×2 (10:07→16:53)
[2021-02-05] MEDS: PANTOPRAZOLE 40 MG TAB PO SCH ×2 (11:25→21:48)
[2021-02-05] MEDS: LISINOPRIL 20 MG TAB PO SCH ×2 (11:25→21:49)
[2021-02-05] MEDS: MULTIPLE VITAMINS W/ MINERALS TAB PO SCH (11:25)
[2021-02-05] MEDS: METOPROLOL TARTRATE 25 MG TAB PO SCH ×2 (11:26→21:49)
[2021-02-05] MEDS: SUCRALFATE 1 GM/10 ML ORAL SUSP GT SCH ×3 (11:45→21:48)
[2021-02-05 17:00] VITALS: BP 122/70
[2021-02-05] MEDS: PREGABALIN 25 MG CAP PO PRN (21:02)
[2021-02-05] MEDS: ATORVASTATIN 20 MG TAB PO SCH (21:48)
[2021-02-05 22:00] VITALS: BP 147/72
[2021-02-05] MEDS ORDERED: PREGABALIN 50 MG PO SCH (22:00)
[2021-02-06] MEDS: HYDROcodone-ACET 5/325MG TAB PO PRN ×4 (00:15→22:57)
[2021-02-06 05:00] VITALS: BP 136/72
[2021-02-06] MEDS: SUCRALFATE 1 GM/10 ML ORAL SUSP GT SCH ×4 (06:23→21:34)
[2021-02-06 06:56] LABS: Basophils # (auto) 0 10 ^3/uL (0-0.2); Basophils % (auto) 0.8 % (0.0-2.0); Eosinophils # (auto) 0.2 10 ^3/uL (0-0.8); Eosinophils % (auto) 6.1 % (0.0-7.0); Hematocrit 34.9 % (36.0-46.0); Hemoglobin 11.6 g/dL (12.2-16.2); Lymphocytes % (auto) 39.1 % (10.0-50.0); Mean Corpuscular Hemoglobin 30.2 pg (28.0-32.0); Mean Corpuscular Hgb Conc. 33.4 g/dL (32.0-36.0); Mean Corpuscular Volume 90.5 fL (80.0-100.0); Monocytes # (auto) 0.3 10 ^3/uL (0-1.3); Monocytes % (auto) 11.2 % (0.0-12.0); Neutrophils # (auto) 1.1 10 ^3/uL (1.6-8.6); Neutrophils % (auto) 42.8 % (37.0-80.0); Nucleated Red Blood Cells % 0.1 %; Red Blood Cells 3.86 10^6/uL (4.0-5.20); Red Cell Distribution Width 21.1 % (11.8-14.3); White Blood Cell 2.5 10^3/uL (4.4-10.8)
[2021-02-06 07:23] LABS: Potassium 4.4 mmol/L (3.5-5.1)
[2021-02-06 07:31] LABS: BUN/Creatinine Ratio 11.5; Bilirubin, Total 0.5 mg/dL (0.2-1.0); Calcium 9.1 mg/dL (8.5-10.1)
[2021-02-06] MEDS: ONDANSETRON HCL 4 MG/2 ML VIAL IV PRN ×2 (08:46→14:17)
[2021-02-06] MEDS: MORPHINE SULFATE INJECTION 2 MG/ML SYRG IV PRN ×2 (08:47→14:17)
[2021-02-06 09:13] VITALS: BP 113/63
[2021-02-06] MEDS: METOPROLOL TARTRATE 25 MG TAB PO SCH ×2 (10:01→21:34)
[2021-02-06] MEDS: LISINOPRIL 20 MG TAB PO SCH (10:01)
[2021-02-06] MEDS: MULTIPLE VITAMINS W/ MINERALS TAB PO SCH (10:01)
[2021-02-06] MEDS: PANTOPRAZOLE 40 MG TAB PO SCH ×2 (10:02→21:34)
[2021-02-06] MEDS: SODIUM CHLORIDE 0.9% 1,000 ML IV SCH (14:16)
[2021-02-06 16:30] VITALS: BP 137/78
[2021-02-06] MEDS: ACETAMINOPHEN 500 MG TAB PO PRN (20:26)
[2021-02-06] MEDS: ATORVASTATIN 20 MG TAB PO SCH (21:34)
[2021-02-06 22:00] VITALS: BP 121/67
[2021-02-06] MEDS: PREGABALIN 25 MG CAP PO PRN (22:57)
[2021-02-07] MEDS: SODIUM CHLORIDE 0.9% 1,000 ML IV SCH ×2 (03:13→22:11)
[2021-02-07] MEDS: ACETAMINOPHEN 500 MG TAB PO PRN (04:09)
[2021-02-07 05:00] VITALS: BP 141/84
[2021-02-07] MEDS: HYDROcodone-ACET 5/325MG TAB PO PRN ×2 (05:16→22:06)
[2021-02-07] MEDS: SUCRALFATE 1 GM/10 ML ORAL SUSP GT SCH ×4 (06:24→22:09)
[2021-02-07 06:48] LABS: Basophils # (auto) 0 10 ^3/uL (0-0.2); Eosinophils # (auto) 0.1 10 ^3/uL (0-0.8); Eosinophils % (auto) 4.6 % (0.0-7.0); Hematocrit 36.3 % (36.0-46.0); Hemoglobin 11.9 g/dL (12.2-16.2); Lymphocytes # (auto) 1.1 10 ^3/uL (0.4-5.4); Mean Corpuscular Hemoglobin 30.7 pg (28.0-32.0); Mean Corpuscular Hgb Conc. 32.9 g/dL (32.0-36.0); Mean Corpuscular Volume 93.2 fL (80.0-100.0); Monocytes # (auto) 0.3 10 ^3/uL (0-1.3); Neutrophils # (auto) 1.4 10 ^3/uL (1.6-8.6); Neutrophils % (auto) 49.4 % (37.0-80.0); Nucleated Red Blood Cells % 0.1 %; Red Blood Cells 3.89 10^6/uL (4.0-5.20); Red Cell Distribution Width 20.6 % (11.8-14.3); White Blood Cell 2.9 10^3/uL (4.4-10.8)
[2021-02-07 07:28] LABS: Potassium 4.5 mmol/L (3.5-5.1)
[2021-02-07 07:36] LABS: BUN/Creatinine Ratio 9.8; Calcium 9.3 mg/dL (8.5-10.1)
[2021-02-07] MEDS: METOPROLOL TARTRATE 25 MG TAB PO SCH ×2 (08:35→22:09)
[2021-02-07] MEDS: MULTIPLE VITAMINS W/ MINERALS TAB PO SCH (08:36)
[2021-02-07] MEDS: LISINOPRIL 20 MG TAB PO SCH (08:36)
[2021-02-07] MEDS: PANTOPRAZOLE 40 MG TAB PO SCH ×2 (08:37→22:09)
[2021-02-07 09:00] VITALS: BP 156/86
[2021-02-07] MEDS ORDERED: GOLYTELY 4L KIT PO ONE (12:15)
[2021-02-07 13:00] VITALS: BP 144/76
[2021-02-07 17:00] VITALS: BP 147/75
[2021-02-07 22:00] VITALS: BP 169/98
[2021-02-07] MEDS: ATORVASTATIN 20 MG TAB PO SCH (22:09)
[2021-02-08] MEDS: HYDROcodone-ACET 5/325MG TAB PO PRN ×2 (03:45→14:19)
[2021-02-08 05:00] VITALS: BP 162/95
[2021-02-08] MEDS: METOPROLOL TARTRATE 25 MG TAB PO SCH (05:30)
[2021-02-08 06:00] VITALS: BP 147/84
[2021-02-08] MEDS ORDERED: GOLYTELY 4L KIT PO ONE (06:00)
[2021-02-08] MEDS ORDERED: MAGNESIUM CITRATE SOLUTION 300 ML BTL PO ONE (06:00)
[2021-02-08] MEDS: SUCRALFATE 1 GM/10 ML ORAL SUSP GT SCH ×3 (06:39→16:49)
[2021-02-08 06:48] LABS: BUN/Creatinine Ratio 7.8; Calcium 9.8 mg/dL (8.5-10.1); Potassium 4.5 mmol/L (3.5-5.1)
[2021-02-08 08:00] VITALS: BP 188/76
[2021-02-08] MEDS: PANTOPRAZOLE 40 MG TAB PO SCH (08:47)
[2021-02-08] MEDS: MULTIPLE VITAMINS W/ MINERALS TAB PO SCH (08:47)
[2021-02-08] MEDS: LISINOPRIL 20 MG TAB PO SCH (08:47)
[2021-02-08] MEDS ORDERED: cloNIDine HCL 0.1 MG TAB PO PRN (09:00)
[2021-02-08] MEDS ORDERED: amLODIPine BESYLATE 5 MG TAB PO SCH (10:00)
[2021-02-08] MEDS ORDERED: amLODIPine BESYLATE 5 MG TAB PO ONE (10:00)
[2021-02-08] MEDS ORDERED: diphenhdrAMINE HCL 50 MG/1 ML VL ONE (10:47)
[2021-02-08] MEDS ORDERED: SODIUM CHLORIDE LOCK 10 ML ONE (10:47)
[2021-02-08] MEDS: MIDAZOLAM HCL 5 MG/ML-1ML VIAL ONE ×2 (11:40→11:43)
[2021-02-08] MEDS: fentaNYL CITRATE 100 MCG/2 ML VL ONE ×2 (11:40→11:43)
[2021-02-08 12:00] VITALS: BP 124/66
[2021-02-08] MEDS: SODIUM CHLORIDE 0.9% 1,000 ML IV SCH (12:30)
[2021-02-08 15:04] VITALS: BP 147/82
[2021-02-08 16:00] VITALS: BP 131/67
== END 2021-02-08 17:00 | disposition home or self-care (01) | DRG 241 ==
LOC: EDBD 23:36 → ER 23:36 → TELE 02-05 09:12 → TELE-CENTR 02-05 14:51 → CENTRAL 02-06 20:49
PROVIDERS: ADMIT Nurse Practitioner Acute Care; ATTEND Internal Medicine
PROC: 0DBN8ZZ Excision of Sigmoid Colon, Via Natural or Artificial Opening Endoscopic (ICD-10-PCS; principal; 2021-02-08 11:35)
DX: K29.70 Gastritis, unspecified, without bleeding (principal); N17.0 Acute kidney failure with tubular necrosis; K62.1 Rectal polyp; E87.1 Hypo-osmolality and hyponatremia; I25.10 Atherosclerotic heart disease of native coronary artery without angina pectoris; M10.9 Gout, unspecified; N18.30 Chronic kidney disease, stage 3 unspecified; I12.9 Hypertensive chronic kidney disease with stage 1 through stage 4 chronic kidney disease, or unspecified chronic kidney disease; E11.22 Type 2 diabetes mellitus with diabetic chronic kidney disease; K64.8 Other hemorrhoids; Z20.822 Contact with and (suspected) exposure to COVID-19; G89.4 Chronic pain syndrome; G40.909 Epilepsy, unspecified, not intractable, without status epilepticus; Z79.899 Other long term (current) drug therapy; Z86.73 Personal history of transient ischemic attack (TIA), and cerebral infarction without residual deficits; Z79.02 Long term (current) use of antithrombotics/antiplatelets; Z87.11 Personal history of peptic ulcer disease; Z90.49 Acquired absence of other specified parts of digestive tract; Z95.5 Presence of coronary angioplasty implant and graft
CPT/HCPCS: 36415; 45380; 70450; 71045; 74176; 80048; 80053; 81001; 82150; 83690; 83735; 84484; 85025; 85610; 85730; 86850; 86900; 86901; 87081; 87426; 93005; 96361; 96374; 96375; 96376; G0378; J2250; J2405; J3490

== ENCOUNTER 2021-06-06 09:10 | Emergency (ER) | payer MEDICARE, OTHER ==
[~2021-06-06] VITALS: Ht 165.1 cm; Wt 63.5 kg
[2021-06-06 10:55] LABS: Urine Bacteria NONE SEEN /hpf (None Seen); Urine Blood Negative /uL (Negative); Urine Specific Gravity 1.005 (1.001-1.035); Urine WBC 1 /hpf (0 - 5)
[2021-06-06] MEDS ORDERED: cefTRIAXone W LIDOCAINE 1 GM IM IM ONE (11:15)
[2021-06-06 12:11] LABS: Basophils # (auto) 0 10 ^3/uL (0-0.2); Basophils % (auto) 0.8 % (0.0-2.0); Eosinophils # (auto) 0.1 10 ^3/uL (0-0.8); Hematocrit 39.9 % (36.0-46.0); Hemoglobin 13.5 g/dL (12.2-16.2); Lymphocytes # (auto) 1.2 10 ^3/uL (0.4-5.4); Lymphocytes % (auto) 21.3 % (10.0-50.0); Mean Corpuscular Hemoglobin 31.1 pg (28.0-32.0); Mean Corpuscular Hgb Conc. 33.8 g/dL (32.0-36.0); Mean Corpuscular Volume 92.1 fL (80.0-100.0); Monocytes # (auto) 0.2 10 ^3/uL (0-1.3); Monocytes % (auto) 4.3 % (0.0-12.0); Neutrophils % (auto) 71.6 % (37.0-80.0); Red Blood Cells 4.33 10^6/uL (4.0-5.20); Red Cell Distribution Width 14.1 % (11.8-14.3); White Blood Cell 5.6 10^3/uL (4.4-10.8)
[2021-06-06 12:27] LABS: Potassium 4.3 mmol/L (3.5-5.1)
[2021-06-06 12:38] LABS: Albumin 4.7 g/dL (3.4-5.0); BUN/Creatinine Ratio 8.8; Bilirubin, Total 0.4 mg/dL (0.2-1.0); Calcium 9.9 mg/dL (8.5-10.1); Total Protein 9.8 g/dL (6.4-8.2)
[2021-06-06] MEDS ORDERED: cefTRIAXone SOD 1,000 MG VL ONE (12:38)
[2021-06-06] MEDS ORDERED: NITR-87 PO (12:53)
[2021-06-06 13:33] VITALS: BP 172/85
== END 2021-06-06 11:40 | disposition home or self-care (01) ==
LOC: EDBD 09:10 → ER 09:10
DX: A41.9 Sepsis, unspecified organism (principal); N39.0 Urinary tract infection, site not specified; I10 Essential (primary) hypertension; I25.2 Old myocardial infarction; E11.9 Type 2 diabetes mellitus without complications; M10.9 Gout, unspecified; Z86.73 Personal history of transient ischemic attack (TIA), and cerebral infarction without residual deficits; Z90.49 Acquired absence of other specified parts of digestive tract; Z98.61 Coronary angioplasty status; Z79.899 Other long term (current) drug therapy; Z88.8 Allergy status to other drugs, medicaments and biological substances
CPT/HCPCS: 36415; 80053; 81001; 84484; 85025; 93005; 96372; 99284; J0696

== ENCOUNTER 2021-06-08 22:05 | Inpatient (IN) | payer MEDICARE, OTHER ==
[~2021-06-08] VITALS: Ht 154.9 cm; Wt 57.9 kg
[~2021-06-08 22:05] MED LIST changes: +NITR-87 PO
[2021-06-08] MEDS ORDERED: ONDANSETRON HCL 4 MG/2 ML VIAL IM ONE (22:30)
[2021-06-08 23:26] LABS: Basophils # (auto) 0 10 ^3/uL (0-0.2); Basophils % (auto) 0.7 % (0.0-2.0); Eosinophils # (auto) 0.1 10 ^3/uL (0-0.8); Eosinophils % (auto) 1.6 % (0.0-7.0); Hematocrit 35.2 % (36.0-46.0); Hemoglobin 11.8 g/dL (12.2-16.2); Lymphocytes # (auto) 1.3 10 ^3/uL (0.4-5.4); Lymphocytes % (auto) 32.6 % (10.0-50.0); Mean Corpuscular Hgb Conc. 33.6 g/dL (32.0-36.0); Mean Corpuscular Volume 92.4 fL (80.0-100.0); Monocytes # (auto) 0.5 10 ^3/uL (0-1.3); Neutrophils # (auto) 2.1 10 ^3/uL (1.6-8.6); Neutrophils % (auto) 53.1 % (37.0-80.0); Nucleated Red Blood Cells % 0.2 %; Red Blood Cells 3.81 10^6/uL (4.0-5.20); Red Cell Distribution Width 14.1 % (11.8-14.3)
[2021-06-08 23:43] LABS: INR 0.99 (0.9-1.15); Partial Thromboplastin Time 26.7 sec (23.6-33.0)
[2021-06-09 00:14] LABS: Anion Gap 13 (5-15); Carbon Dioxide 19 mmol/L (21-32); Chloride 90 mmol/L (98-107); Potassium 4.5 mmol/L (3.5-5.1); Sodium 122 mmol/L (136-145)
[2021-06-09 00:15] LABS: Alanine Aminotransferase 29 U/L (13-56); Albumin 4.5 g/dL (3.4-5.0); Alkaline Phosphatase 109 U/L (45-117); Aspartate Aminotransferase 36 U/L (15-37); BUN/Creatinine Ratio 12.6; Bilirubin, Total 0.8 mg/dL (0.2-1.0); Blood Urea Nitrogen 22 mg/dL (7-18); Calcium 9.4 mg/dL (8.5-10.1); GFR African American 36 mL/min; GFR Non-African American 30 mL/min; Glucose 108 mg/dL (74-106); Magnesium 2.4 mg/dL (1.6-2.6)
[2021-06-09] MEDS ORDERED: DOCUSATE SOD 100 MG CAP PO PRN (01:00)
[2021-06-09] MEDS ORDERED: SODIUM CHLORIDE 0.9% 1,000 ML IV SCH (01:00)
[2021-06-09] MEDS ORDERED: ACETAMINOPHEN 325 MG TAB PO PRN (01:00)
[2021-06-09] MEDS ORDERED: LORazepam 2MG/ML-1ML VIAL IV PRN (01:30)
[2021-06-09] MEDS ORDERED: NITROGLYCERIN 0.4 MG SL TAB SL PRN (01:30)
[2021-06-09] MEDS ORDERED: diphenhdrAMINE HCL 50 MG/1 ML VL IV PRN (01:30)
[2021-06-09] MEDS ORDERED: DEXTROSE (50%) 50ML SYRG IV PRN (01:30)
[2021-06-09 02:11] LABS: Urine Bacteria NONE SEEN /hpf (None Seen); Urine Blood TRACE /uL (Negative); Urine Specific Gravity 1.004 (1.001-1.035); Urine WBC <1 /hpf (0 - 5)
[2021-06-09 02:47] LABS: Basophils # (auto) 0 10 ^3/uL (0-0.2); Basophils % (auto) 0.6 % (0.0-2.0); Eosinophils # (auto) 0.1 10 ^3/uL (0-0.8); Eosinophils % (auto) 1.4 % (0.0-7.0); Hematocrit 35.3 % (36.0-46.0); Hemoglobin 11.9 g/dL (12.2-16.2); Lymphocytes # (auto) 1.5 10 ^3/uL (0.4-5.4); Lymphocytes % (auto) 30.9 % (10.0-50.0); Mean Corpuscular Hemoglobin 30.7 pg (28.0-32.0); Mean Corpuscular Hgb Conc. 33.7 g/dL (32.0-36.0); Mean Corpuscular Volume 91.1 fL (80.0-100.0); Monocytes # (auto) 0.5 10 ^3/uL (0-1.3); Monocytes % (auto) 11.5 % (0.0-12.0); Neutrophils # (auto) 2.6 10 ^3/uL (1.6-8.6); Neutrophils % (auto) 55.6 % (37.0-80.0); Nucleated Red Blood Cells % 0.1 %; Red Blood Cells 3.87 10^6/uL (4.0-5.20); Red Cell Distribution Width 14.4 % (11.8-14.3); White Blood Cell 4.7 10^3/uL (4.4-10.8)
[2021-06-09 02:59] LABS: Albumin 4.8 g/dL (3.4-5.0); BUN/Creatinine Ratio 13.6; Potassium 4.7 mmol/L (3.5-5.1)
[2021-06-09] MEDS: D5W/SOD CHLO 0.9% 1,000 ML IV SCH ×2 (03:00→18:02)
[2021-06-09 03:02] LABS: Bilirubin, Total 0.8 mg/dL (0.2-1.0); Total Protein 8.7 g/dL (6.4-8.2)
[2021-06-09] MEDS: HYDROmorphone HCL 2 MG/ML VL IV PRN ×3 (04:01→14:14)
[2021-06-09] MEDS: HEPARIN SODIUM (PORCINE) 5000 UNITS/ML 1ML VIAL SC SCH ×2 (10:00→21:11)
[2021-06-09] MEDS: ACCU-CHEK COMFORT CURVE STRIP VI SCH ×3 (10:00→17:00)
[2021-06-09] MEDS: InsuLIN REG 1unit/0.01ml Soln (100units/ml) SC SCH ×4 (10:00→21:49)
[2021-06-09] MEDS: FAMOTIDINE (10MG/ML) 2ML VL IV SCH (10:08)
[2021-06-09] MEDS: ZINC SULFATE 220mg CAP or TAB PO SCH (10:09)
[2021-06-09] MEDS: ASPirin 81 mg TAB PO SCH (10:09)
[2021-06-09] MEDS: MULTIPLE VITAMIN TAB PO SCH (10:09)
[2021-06-09] MEDS: ASCORBIC ACID 500 MG TAB PO SCH ×2 (10:09→21:07)
[2021-06-09] MEDS: METOPROLOL TARTRATE 25 MG TAB PO SCH ×2 (10:12→21:13)
[2021-06-09] MEDS: ONDANSETRON HCL 4 MG/2 ML VIAL IV PRN ×2 (14:14→21:06)
[2021-06-09 16:19] VITALS: BP 136/85
[2021-06-09 20:00] VITALS: BP 139/74
[2021-06-09] MEDS: HYDROcodone-ACET 5/325MG TAB PO PRN (21:10)
[2021-06-09 22:12] VITALS: BP 139/74
[2021-06-10] MEDS: ACCU-CHEK COMFORT CURVE STRIP VI SCH ×2 (01:02→07:07)
[2021-06-10 02:09] LABS: Urine WBC None Seen /hpf (0 - 5)
[2021-06-10 02:28] LABS: Urine Bacteria NONE SEEN /hpf (None Seen); Urine Blood Negative /uL (Negative); Urine Specific Gravity 1.004 (1.001-1.035)
[2021-06-10] MEDS: HYDROcodone-ACET 5/325MG TAB PO PRN ×2 (03:30→21:58)
[2021-06-10] MEDS: ONDANSETRON HCL 4 MG/2 ML VIAL IV PRN (04:04)
[2021-06-10 05:06] VITALS: BP 102/52
[2021-06-10 05:21] LABS: Basophils # (auto) 0 10 ^3/uL (0-0.2); Eosinophils # (auto) 0.1 10 ^3/uL (0-0.8); Eosinophils % (auto) 3.1 % (0.0-7.0); Hemoglobin 11.2 g/dL (12.2-16.2); Lymphocytes # (auto) 1.1 10 ^3/uL (0.4-5.4); Lymphocytes % (auto) 35.9 % (10.0-50.0); Mean Corpuscular Hemoglobin 31.4 pg (28.0-32.0); Mean Corpuscular Volume 92.3 fL (80.0-100.0); Monocytes # (auto) 0.4 10 ^3/uL (0-1.3); Monocytes % (auto) 14.4 % (0.0-12.0); Neutrophils # (auto) 1.4 10 ^3/uL (1.6-8.6); Neutrophils % (auto) 45.6 % (37.0-80.0); Nucleated Red Blood Cells % 0.2 %; Red Blood Cells 3.58 10^6/uL (4.0-5.20); Red Cell Distribution Width 14.5 % (11.8-14.3)
[2021-06-10 05:41] LABS: Potassium 4.3 mmol/L (3.5-5.1)
[2021-06-10 05:49] LABS: Albumin 4.1 g/dL (3.4-5.0); BUN/Creatinine Ratio 14.9; Bilirubin, Total 0.6 mg/dL (0.2-1.0); Calcium 8.9 mg/dL (8.5-10.1); Total Protein 7.9 g/dL (6.4-8.2)
[2021-06-10] MEDS: InsuLIN REG 1unit/0.01ml Soln (100units/ml) SC SCH (07:00)
[2021-06-10] MEDS: D5W/SOD CHLO 0.9% 1,000 ML IV SCH (07:02)
[2021-06-10 09:00] VITALS: BP 138/64
[2021-06-10] MEDS: ASCORBIC ACID 500 MG TAB PO SCH (09:22)
[2021-06-10] MEDS: ZINC SULFATE 220mg CAP or TAB PO SCH (09:22)
[2021-06-10] MEDS: ASPirin 81 mg TAB PO SCH (09:22)
[2021-06-10] MEDS: HYDROmorphone HCL 2 MG/ML VL IV PRN (09:23)
[2021-06-10] MEDS: MULTIPLE VITAMIN TAB PO SCH (09:23)
[2021-06-10] MEDS: METOPROLOL TARTRATE 25 MG TAB PO SCH ×2 (09:24→21:46)
[2021-06-10] MEDS: PANCREATIC ENZYMES 4200 UNIT CAP PO SCH ×3 (09:24→18:00)
[2021-06-10] MEDS: FAMOTIDINE (10MG/ML) 2ML VL IV SCH (09:25)
[2021-06-10] MEDS: HEPARIN SODIUM (PORCINE) 5000 UNITS/ML 1ML VIAL SC SCH ×2 (09:26→21:57)
[2021-06-10] MEDS ORDERED: DOCUSATE SOD 100 MG CAP PO ONE (12:30)
[2021-06-10 12:53] VITALS: BP 116/57
[2021-06-10 16:45] VITALS: BP 116/53
[2021-06-10] MEDS: DOCUSATE SOD 100 MG CAP PO SCH (21:58)
[2021-06-10 22:00] VITALS: BP 143/68
[2021-06-11] MEDS: HYDROcodone-ACET 5/325MG TAB PO PRN ×3 (02:04→19:44)
[2021-06-11 05:09] VITALS: BP 118/61
[2021-06-11 09:00] VITALS: BP 145/78
[2021-06-11] MEDS: ZINC SULFATE 220mg CAP or TAB PO SCH (10:00)
[2021-06-11] MEDS: MULTIPLE VITAMIN TAB PO SCH (10:00)
[2021-06-11] MEDS: PANCREATIC ENZYMES 4200 UNIT CAP PO SCH ×2 (11:00→12:00)
[2021-06-11] MEDS: DOCUSATE SOD 100 MG CAP PO SCH ×2 (11:38→21:49)
[2021-06-11] MEDS: METOPROLOL TARTRATE 25 MG TAB PO SCH ×2 (11:39→21:49)
[2021-06-11] MEDS: ASPirin 81 mg TAB PO SCH (11:39)
[2021-06-11] MEDS: FAMOTIDINE (10MG/ML) 2ML VL IV SCH (11:40)
[2021-06-11] MEDS: HEPARIN SODIUM (PORCINE) 5000 UNITS/ML 1ML VIAL SC SCH ×2 (11:41→21:50)
[2021-06-11] MEDS ORDERED: PANTOPRAZOLE 40 MG TAB PO ONE (12:30)
[2021-06-11 13:00] VITALS: BP 126/69
[2021-06-11 14:18] LABS: Basophils # (auto) 0 10 ^3/uL (0-0.2); Basophils % (auto) 0.9 % (0.0-2.0); Eosinophils # (auto) 0.1 10 ^3/uL (0-0.8); Hematocrit 35.1 % (36.0-46.0); Hemoglobin 11.5 g/dL (12.2-16.2); Lymphocytes # (auto) 1.2 10 ^3/uL (0.4-5.4); Lymphocytes % (auto) 40.3 % (10.0-50.0); Mean Corpuscular Hemoglobin 30.8 pg (28.0-32.0); Mean Corpuscular Hgb Conc. 32.9 g/dL (32.0-36.0); Mean Corpuscular Volume 93.7 fL (80.0-100.0); Monocytes # (auto) 0.4 10 ^3/uL (0-1.3); Monocytes % (auto) 14.2 % (0.0-12.0); Neutrophils # (auto) 1.2 10 ^3/uL (1.6-8.6); Neutrophils % (auto) 40.6 % (37.0-80.0); Nucleated Red Blood Cells % 0.1 %; Red Blood Cells 3.75 10^6/uL (4.0-5.20); Red Cell Distribution Width 14.8 % (11.8-14.3)
[2021-06-11 14:25] LABS: BUN/Creatinine Ratio 12.3; Calcium 9.4 mg/dL (8.5-10.1); Potassium 4.2 mmol/L (3.5-5.1)
[2021-06-11 16:39] VITALS: BP 126/74
[2021-06-11 22:57] VITALS: BP 146/67
[2021-06-12 05:11] VITALS: BP 150/76
[2021-06-12] MEDS ORDERED: ONDANSETRON HCL 4 MG/2 ML VIAL IV PRN (06:30)
[2021-06-12] MEDS: PANCREATIC ENZYMES 4200 UNIT CAP PO SCH ×2 (07:58→14:08)
[2021-06-12 08:00] VITALS: BP 142/79
[2021-06-12 09:00] VITALS: BP 142/79
[2021-06-12] MEDS: DOCUSATE SOD 100 MG CAP PO SCH (09:34)
[2021-06-12] MEDS: MULTIPLE VITAMIN TAB PO SCH (09:34)
[2021-06-12] MEDS: ASPirin 81 mg TAB PO SCH (09:34)
[2021-06-12] MEDS: METOPROLOL TARTRATE 25 MG TAB PO SCH (09:35)
[2021-06-12] MEDS: ZINC SULFATE 220mg CAP or TAB PO SCH (09:35)
[2021-06-12] MEDS: HEPARIN SODIUM (PORCINE) 5000 UNITS/ML 1ML VIAL SC SCH (09:38)
[2021-06-12] MEDS ORDERED: PANTOPRAZOLE 40 MG TAB PO SCH (10:00)
[2021-06-12] MEDS ORDERED: PANT40T PO (11:38)
[2021-06-12] MEDS ORDERED: SUCR1SUS10 PO (11:38)
[2021-06-12] MEDS ORDERED: ONDA-144 PO (11:43)
[2021-06-12 13:00] VITALS: BP 138/68
== END 2021-06-12 14:30 | disposition home or self-care (01) | DRG 241 ==
LOC: EDUNIT# 22:05 → ER 22:05 → EDBD 22:05 → TELE-CENTR 06-09 18:42 → CENTRAL 06-09 18:43
PROVIDERS: ADMIT Nurse Practitioner Family; ATTEND Internal Medicine
DX: K29.70 Gastritis, unspecified, without bleeding (principal); E87.1 Hypo-osmolality and hyponatremia; I11.9 Hypertensive heart disease without heart failure; E78.5 Hyperlipidemia, unspecified; E11.9 Type 2 diabetes mellitus without complications; G40.909 Epilepsy, unspecified, not intractable, without status epilepticus; G89.4 Chronic pain syndrome; N28.9 Disorder of kidney and ureter, unspecified; Z20.822 Contact with and (suspected) exposure to COVID-19; R79.89 Other specified abnormal findings of blood chemistry; R30.0 Dysuria; F41.9 Anxiety disorder, unspecified; M10.9 Gout, unspecified; M54.9 Dorsalgia, unspecified; K83.8 Other specified diseases of biliary tract; Z88.8 Allergy status to other drugs, medicaments and biological substances; R00.0 Tachycardia, unspecified; I25.10 Atherosclerotic heart disease of native coronary artery without angina pectoris; I25.2 Old myocardial infarction; K44.9 Diaphragmatic hernia without obstruction or gangrene; Z86.73 Personal history of transient ischemic attack (TIA), and cerebral infarction without residual deficits; Z95.5 Presence of coronary angioplasty implant and graft; Z90.49 Acquired absence of other specified parts of digestive tract; Z87.19 Personal history of other diseases of the digestive system
CPT/HCPCS: 36415; 71045; 74176; 80048; 80053; 81001; 82962; 83690; 83735; 83880; 84484; 85025; 85610; 85730; 87086; 87426; 93005; 96372; G0378; J2405; J3490; J7042

== ENCOUNTER 2021-10-03 11:00 | Inpatient (IN) | payer MEDICARE, OTHER ==
[~2021-10-03] VITALS: Ht 152.4 cm; Wt 54.2 kg
[~2021-10-03 11:00] MED LIST changes: -ASPI-394 PO; -CLOP75TA70 PO; +MEROPENEM 500MG IVPB 50 ML IV SCH; -NITR-87 PO; +ONDA-144 PO
[2021-10-03 12:34] LABS: Basophils # (auto) 0.1 10 ^3/uL (0-0.2); Basophils % (auto) 1.1 % (0.0-2.0); Eosinophils # (auto) 0.5 10 ^3/uL (0-0.8); Eosinophils % (auto) 10.7 % (0.0-7.0); Hematocrit 35.8 % (36.0-46.0); Lymphocytes # (auto) 1.2 10 ^3/uL (0.4-5.4); Lymphocytes % (auto) 25.9 % (10.0-50.0); Mean Corpuscular Hemoglobin 30.9 pg (28.0-32.0); Mean Corpuscular Hgb Conc. 33.3 g/dL (32.0-36.0); Mean Corpuscular Volume 92.8 fL (80.0-100.0); Monocytes # (auto) 0.6 10 ^3/uL (0-1.3); Monocytes % (auto) 12.6 % (0.0-12.0); Neutrophils # (auto) 2.2 10 ^3/uL (1.6-8.6); Neutrophils % (auto) 49.7 % (37.0-80.0); Nucleated Red Blood Cells % 0.2 %; Red Blood Cells 3.86 10^6/uL (4.0-5.20); Red Cell Distribution Width 14.5 % (11.8-14.3); White Blood Cell 4.5 10^3/uL (4.4-10.8)
[2021-10-03 12:55] LABS: Albumin 3.8 g/dL (3.4-5.0); BUN/Creatinine Ratio 6.8; Bilirubin, Total 0.5 mg/dL (0.2-1.0); Total Protein 9.2 g/dL (6.4-8.2)
[2021-10-03 13:20] LABS: Urine Bacteria NONE SEEN /hpf (None Seen); Urine Blood TRACE /uL (Negative); Urine Specific Gravity 1.004 (1.001-1.035); Urine WBC <1 /hpf (0 - 5)
[2021-10-03] MEDS ORDERED: CALCIUM GLUC 1,000mg/50ml-NS 50 ML IV ONE (16:00)
[2021-10-03] MEDS ORDERED: InsuLIN REG 1unit/0.01ml Soln (100units/ml) IV ONE (16:00)
[2021-10-03] MEDS ORDERED: FUROSEMIDE 20 MG/2 ML VIAL IV ONE (16:00)
[2021-10-03] MEDS ORDERED: SODIUM ZIRCONIUM CYCL 10 GM PAK PO ONE (16:00)
[2021-10-03] MEDS ORDERED: SODIUM BICARBONATE 8.4% INJ 50ML SYRINGE IV ONE (16:00)
[2021-10-03] MEDS ORDERED: ALBUTEROL SULF 2.5 MG/0.5ML(0.5%) NEB SOLN NEB ONE (16:00)
[2021-10-03] MEDS ORDERED: DEXTROSE (50%) 50ML SYRG IV ONE (16:00)
[2021-10-03] MEDS ORDERED: ONDANSETRON HCL 4 MG/2 ML VIAL IV PRN (16:45)
[2021-10-03] MEDS ORDERED: PANTOPRAZOLE 40 MG/10 ML VIAL INJ IV ONE (16:45)
[2021-10-03] MEDS ORDERED: NITROGLYCERIN 0.4 MG SL TAB SL PRN (16:45)
[2021-10-03] MEDS ORDERED: MORPHINE SULFATE INJ 2 MG/ml SYRG IV PRN ×2 (16:45)
[2021-10-03] MEDS: SODIUM CHLORIDE 0.9% 1,000 ML IV SCH (17:27)
[2021-10-03] MEDS ORDERED: SODIUM BICARBONATE 8.4 % INJ 50ML VIAL IV ONE (17:30)
[2021-10-03 19:15] LABS: Partial Thromboplastin Time 29.1 sec (23.6-33.0)
[2021-10-03] MEDS ORDERED: VANCOMYCIN PER PHARMACY 1,000 MG IV SCH (19:15)
[2021-10-03] MEDS ORDERED: MORPHINE SULFATE 4 MG/ML SYR/VIAL IV PRN (19:15)
[2021-10-03] MEDS ORDERED: NOREPINEPHRINE 8 MG/250ML KIT 250 ML IV SCH (19:15)
[2021-10-03] MEDS ORDERED: METOPROLOL TARTRATE 1MG/1ML-5ML VIAL IV PRN (19:15)
[2021-10-03] MEDS ORDERED: LORazepam 2MG/ML-1ML VIAL IV PRN (19:15)
[2021-10-03] MEDS ORDERED: LACTATED RINGER'S 1,000 ML IV ONE (20:15)
[2021-10-03] MEDS ORDERED: MEROPENEM 500MG IVPB 50 ML IV ONE (20:15)
[2021-10-03] MEDS ORDERED: VANCOMYCIN 1GM/250ML 250 ML IV ONE (20:30)
[2021-10-03 21:49] LABS: Anion Gap 17 (5-15); BUN/Creatinine Ratio 5.7; Blood Urea Nitrogen 14 mg/dL (7-18); Calcium 9.7 mg/dL (8.5-10.1); Carbon Dioxide 20 mmol/L (21-32); Chloride 101 mmol/L (98-107); GFR African American 24 mL/min; GFR Non-African American 20 mL/min; Glucose 115 mg/dL (74-106); Potassium 4.2 mmol/L (3.5-5.1); Sodium 138 mmol/L (136-145)
[2021-10-03 21:55] LABS: Lactic Acid w/Reflex 5.6 mmol/L (0.4-2.0)
[2021-10-04] VITALS (7 sets, daily range): BP systolic 118–147; BP diastolic 64–85
[2021-10-04] MEDS ORDERED: ACET325T10 PO (07:10)
[2021-10-04] MEDS ORDERED: ONDA-188 PO (07:10)
[2021-10-04] MEDS ORDERED: ONDANSETRON HCL 4 MG/2 ML VIAL IV PRN (08:00)
[2021-10-04] MEDS ORDERED: LORazepam 0.5 MG TAB PO PRN (08:00)
[2021-10-04] MEDS ORDERED: MORPHINE SULFATE INJ 2 MG/ml SYRG IV PRN (08:00)
[2021-10-04] MEDS ORDERED: LABETALOL HCL 5 MG/ML 4ML SYRINGE IV PRN (08:00)
[2021-10-04] MEDS ORDERED: DOCUSATE SOD 100 MG CAP PO PRN (08:00)
[2021-10-04] MEDS ORDERED: ACETAMINOPHEN 325 MG TAB PO PRN (08:00)
[2021-10-04] MEDS ORDERED: MEROPENEM 500MG IVPB 50 ML IV SCH (08:15)
[2021-10-04 08:43] LABS: Basophils # (auto) 0.2 10 ^3/uL (0-0.2); Basophils % (auto) 3.5 % (0.0-2.0); Eosinophils # (auto) 0.3 10 ^3/uL (0-0.8); Eosinophils % (auto) 6.5 % (0.0-7.0); Hematocrit 33.5 % (36.0-46.0); Lymphocytes % (auto) 19.4 % (10.0-50.0); Mean Corpuscular Hgb Conc. 33.8 g/dL (32.0-36.0); Mean Corpuscular Volume 91.8 fL (80.0-100.0); Monocytes # (auto) 0.5 10 ^3/uL (0-1.3); Monocytes % (auto) 10.5 % (0.0-12.0); Neutrophils # (auto) 3.1 10 ^3/uL (1.6-8.6); Neutrophils % (auto) 60.1 % (37.0-80.0); Nucleated Red Blood Cells % 0.1 %; Red Blood Cells 3.65 10^6/uL (4.0-5.20); Red Cell Distribution Width 14.3 % (11.8-14.3); White Blood Cell 5.2 10^3/uL (4.4-10.8)
[2021-10-04 08:49] LABS: Hemoglobin 11.3 g/dL (12.2-16.2)
[2021-10-04 08:58] LABS: Uric Acid 4.3 mg/dL (2.6-6.0)
[2021-10-04 09:23] LABS: Albumin 3.5 g/dL (3.4-5.0); Potassium 4.9 mmol/L (3.5-5.1)
[2021-10-04 09:26] LABS: Bilirubin, Total 0.8 mg/dL (0.2-1.0)
[2021-10-04 09:46] LABS: BUN/Creatinine Ratio 6.2; Calcium 9.8 mg/dL (8.5-10.1)
[2021-10-04 09:47] LABS: Phosphorus 2.7 mg/dL (2.5-4.90); Total Protein 8.4 g/dL (6.4-8.2)
[2021-10-04] MEDS: ENOXAPARIN SOD 30 MG/0.3 ML SYRINGE SC SCH (09:58)
[2021-10-04] MEDS: SODIUM CHLORIDE 0.9% 1,000 ML IV SCH (09:58)
[2021-10-04] MEDS ORDERED: PANTOPRAZOLE 40 MG/10 ML VIAL INJ IV SCH (10:00)
[2021-10-04] MEDS: HYDROcodone-ACET 5/325MG TAB PO PRN ×2 (10:43→17:16)
[2021-10-04] MEDS ORDERED: cefTRIAXone 1GM/50ML D5W 50 ML IV ONE (10:45)
[2021-10-04 11:20] LABS: INR 1.06 (0.9-1.15); Partial Thromboplastin Time 29.9 sec (23.6-33.0)
[2021-10-04] MEDS: SUCRALFATE 1 GM TAB PO SCH (17:16)
[2021-10-04 17:36] LABS: Hepatitis A Ab IgM Negative; Hepatitis B Core IgM Negative; Hepatitis C Antibody Negative (Negative)
[2021-10-04] MEDS: METOPROLOL TARTRATE 25 MG TAB PO SCH (21:10)
[2021-10-05 04:00] VITALS: BP 146/76
[2021-10-05] MEDS: PANTOPRAZOLE 40 MG/10 ML VIAL INJ IV SCH ×2 (05:41→10:00)
[2021-10-05] MEDS: SUCRALFATE 1 GM TAB PO SCH ×4 (05:41→17:00)
[2021-10-05] MEDS: SODIUM CHLORIDE 0.9% 1,000 ML IV SCH (05:42)
[2021-10-05 05:48] LABS: Albumin 3.4 g/dL (3.4-5.0); Calcium 9.3 mg/dL (8.5-10.1); Potassium 4.3 mmol/L (3.5-5.1)
[2021-10-05 05:54] LABS: BUN/Creatinine Ratio 6.1; Bilirubin, Total 0.6 mg/dL (0.2-1.0); Total Protein 7.9 g/dL (6.4-8.2)
[2021-10-05 08:45] VITALS: BP 142/77
[2021-10-05] MEDS ORDERED: cefTRIAXone 1GM/50ML D5W 50 ML IV SCH (09:00)
[2021-10-05] MEDS ORDERED: ALLOPURINOL 100 MG TAB PO SCH (10:00)
[2021-10-05] MEDS ORDERED: CHOLECALCIFEROL (VITD3) 2,000 UNIT CAP/TAB PO SCH (10:00)
[2021-10-05] MEDS: ENOXAPARIN SOD 30 MG/0.3 ML SYRINGE SC SCH (11:21)
[2021-10-05] MEDS: METOPROLOL TARTRATE 25 MG TAB PO SCH (11:21)
[2021-10-05 12:31] VITALS: BP 144/80
[2021-10-05] MEDS ORDERED: LEVO500T31 PO (14:09)
[2021-10-05] MEDS ORDERED: CHOL20007 PO (14:09)
[2021-10-05] MEDS ORDERED: DOCU-94 PO (14:09)
[2021-10-05] MEDS ORDERED: MET25T PO (14:17)
[2021-10-05 16:31] VITALS: BP 145/71
[2021-10-05 16:46] VITALS: BP 142/77
[2021-10-05] MEDS ORDERED: DOCUSATE SOD 100 MG CAP PO SCH (22:00)
== END 2021-10-05 19:00 | disposition home health service (06) | DRG 720 ==
LOC: EDBD 11:00 → EDUNIT# 11:00 → ER 11:00 → TELE 16:43 → TELE-WESTW 10-04 04:54 → WEST WING 10-05 13:57
PROVIDERS: ADMIT Hospitalist; ATTEND Internal Medicine
DX: A41.9 Sepsis, unspecified organism (principal); N17.0 Acute kidney failure with tubular necrosis; G93.41 Metabolic encephalopathy; R65.20 Severe sepsis without septic shock; K80.50 Calculus of bile duct without cholangitis or cholecystitis without obstruction; E87.1 Hypo-osmolality and hyponatremia; E87.5 Hyperkalemia; Z20.822 Contact with and (suspected) exposure to COVID-19; N39.0 Urinary tract infection, site not specified; N18.32 Chronic kidney disease, stage 3b; K29.70 Gastritis, unspecified, without bleeding; B17.9 Acute viral hepatitis, unspecified; E11.22 Type 2 diabetes mellitus with diabetic chronic kidney disease; I12.9 Hypertensive chronic kidney disease with stage 1 through stage 4 chronic kidney disease, or unspecified chronic kidney disease; I25.10 Atherosclerotic heart disease of native coronary artery without angina pectoris; K59.00 Constipation, unspecified; M10.9 Gout, unspecified; Z88.8 Allergy status to other drugs, medicaments and biological substances; Z79.899 Other long term (current) drug therapy; Z86.73 Personal history of transient ischemic attack (TIA), and cerebral infarction without residual deficits; Z95.5 Presence of coronary angioplasty implant and graft; Z90.49 Acquired absence of other specified parts of digestive tract; I25.2 Old myocardial infarction
CPT/HCPCS: 36415; 70450; 71045; 76705; 80048; 80053; 80061; 80074; 81001; 82306; 82565; 83036; 83605; 83690; 83735; 84100; 84443; 84484; 84550; 85025; 85379; 85610; 85730; 87040; 87086; 93005; 94640; 96365; 96367; 96375; C9113; G0378; J0696; J1815; J2185; J2405

== ENCOUNTER 2021-10-27 12:30 | Inpatient (IN) | payer MEDICARE, OTHER ==
[~2021-10-27] VITALS: Ht 157.5 cm; Wt 51.1 kg
[~2021-10-27 12:30] MED LIST changes: +ACET325T10 PO; +CHOL20007 PO; +DOCU-94 PO; +LEVO500T31 PO; -LISI20TA28 PO; -MEROPENEM 500MG IVPB 50 ML IV SCH; +ONDA-188 PO; -ROSU1TAB15 PO
[2021-10-27] MEDS ORDERED: SODIUM CHLORIDE 0.9% 1,000 ML IV ONE (13:00)
[2021-10-27 13:46] LABS: Basophils # (auto) 0 10 ^3/uL (0-0.2); Basophils % (auto) 0.5 % (0.0-2.0); Eosinophils # (auto) 0.1 10 ^3/uL (0-0.8); Eosinophils % (auto) 2.8 % (0.0-7.0); Hemoglobin 13.1 g/dL (12.2-16.2); Lymphocytes % (auto) 28.4 % (10.0-50.0); Mean Corpuscular Hemoglobin 31.8 pg (28.0-32.0); Mean Corpuscular Hgb Conc. 34.4 g/dL (32.0-36.0); Mean Corpuscular Volume 92.4 fL (80.0-100.0); Monocytes # (auto) 0.3 10 ^3/uL (0-1.3); Monocytes % (auto) 8.5 % (0.0-12.0); Neutrophils # (auto) 2.1 10 ^3/uL (1.6-8.6); Neutrophils % (auto) 59.8 % (37.0-80.0); Nucleated Red Blood Cells % 0.2 %; Red Blood Cells 4.11 10^6/uL (4.0-5.20); Red Cell Distribution Width 14.6 % (11.8-14.3); White Blood Cell 3.6 10^3/uL (4.4-10.8)
[2021-10-27 14:03] LABS: Albumin 4.2 g/dL (3.4-5.0); BUN/Creatinine Ratio 7.1; Calcium 9.8 mg/dL (8.5-10.1)
[2021-10-27 14:06] LABS: Bilirubin, Total 0.8 mg/dL (0.2-1.0); Total Protein 8.7 g/dL (6.4-8.2)
[2021-10-27] MEDS ORDERED: ONDANSETRON HCL 4 MG/2 ML VIAL IV ONE (14:30)
[2021-10-27] MEDS ORDERED: LORazepam 2MG/ML-1ML VIAL IV ONE (14:30)
[2021-10-27] MEDS ORDERED: hydrALAZINE HCL 20 MG/ML VL IV PRN (19:00)
[2021-10-27] MEDS ORDERED: MORPHINE SULFATE INJ 2 MG/ml SYRG IV PRN (19:00)
[2021-10-27] MEDS ORDERED: TEMA30CA PO (22:44)
[2021-10-27] MEDS: ONDANSETRON HCL 4 MG/2 ML VIAL IV PRN (23:18)
[2021-10-27] MEDS: SODIUM CHLORIDE 0.9% 1,000 ML IV SCH (23:18)
[2021-10-28 05:10] VITALS: BP 129/75
[2021-10-28 08:00] VITALS: BP 163/85
[2021-10-28] MEDS: LABETALOL HCL 5 MG/ML 4ML SYRINGE IV PRN (08:54)
[2021-10-28] MEDS: ENOXAPARIN SOD 40 MG/0.4 ML SYRINGE SC SCH (08:54)
[2021-10-28 10:09] LABS: Hematocrit 36.4 % (36.0-46.0)
[2021-10-28 10:11] LABS: Hemoglobin 12.4 g/dL (12.2-16.2); Mean Corpuscular Hemoglobin 31.9 pg (28.0-32.0); Mean Corpuscular Volume 93.9 fL (80.0-100.0); Red Blood Cells 3.88 10^6/uL (4.0-5.20); White Blood Cell 2.1 10^3/uL (4.4-10.8)
[2021-10-28 10:16] LABS: Blast Cells 0; Eosinophils % (manual) 0 (0-7); Metamyelocytes % 0; Myelocytes % 0; Promyelocytes % 0
[2021-10-28 10:48] LABS: Band Neutrophils % (manual) 1; Basophils % (manual) 1 (0.0-2.0); Lymphocytes % (manual) 32 (10.0-50.0); Monocytes % (manual) 11 (0-12); Reactive Lymphocytes 4
[2021-10-28 10:50] LABS: Albumin 4.2 g/dL (3.4-5.0); BUN/Creatinine Ratio 8.1; Calcium 9.6 mg/dL (8.5-10.1); Potassium 4.3 mmol/L (3.5-5.1)
[2021-10-28 10:58] LABS: Total Protein 8.3 g/dL (6.4-8.2)
[2021-10-28] MEDS: SODIUM CHLORIDE 0.9% 1,000 ML IV SCH (11:15)
[2021-10-28 12:00] VITALS: BP 145/88
[2021-10-28] MEDS: ACETAMINOPHEN 325 MG TAB PO PRN (13:02)
[2021-10-28 16:00] VITALS: BP 144/91
[2021-10-28] MEDS ORDERED: cefTRIAXone 1GM/50ML D5W 50 ML IV ONE (17:15)
[2021-10-28] MEDS: HYDROcodone-ACET 5/325MG TAB PO PRN (17:22)
[2021-10-28] MEDS ORDERED: TEMAZEPAM 15 MG CAP PO ONE (21:45)
[2021-10-28 22:00] VITALS: BP 139/79
[2021-10-29] MEDS: HYDROcodone-ACET 5/325MG TAB PO PRN ×4 (00:55→21:15)
[2021-10-29 04:59] VITALS: BP 163/86
[2021-10-29 06:52] LABS: Albumin 4.3 g/dL (3.4-5.0); Calcium 9.9 mg/dL (8.5-10.1); Potassium 4.3 mmol/L (3.5-5.1)
[2021-10-29 06:58] LABS: BUN/Creatinine Ratio 9.6; Bilirubin, Total 0.7 mg/dL (0.2-1.0); Total Protein 8.6 g/dL (6.4-8.2)
[2021-10-29 08:00] VITALS: BP 146/90
[2021-10-29] MEDS ORDERED: cefTRIAXone 1GM/50ML D5W 50 ML IV SCH (09:00)
[2021-10-29] MEDS: ENOXAPARIN SOD 40 MG/0.4 ML SYRINGE SC SCH (10:06)
[2021-10-29 10:26] LABS: Urine WBC None Seen /hpf (0 - 5)
[2021-10-29] MEDS ORDERED: amLODIPine BESYLATE 5 MG TAB PO ONE (10:45)
[2021-10-29] MEDS ORDERED: LORazepam 0.5 MG TAB PO ONE (10:45)
[2021-10-29 10:46] LABS: Urine Bacteria NONE SEEN /hpf (None Seen); Urine Blood Negative /uL (Negative); Urine Specific Gravity 1.015 (1.001-1.035)
[2021-10-29 12:00] VITALS: BP 139/74
[2021-10-29 16:00] VITALS: BP_SYST 131; BP_SYST 142; BP_DIAS 72; BP_DIAS 80
[2021-10-29] MEDS: PANTOPRAZOLE 40 MG TAB PO SCH ×2 (16:26→21:15)
[2021-10-29] MEDS: SUCRALFATE 1 GM/10 ML ORAL SUSP PO SCH ×3 (16:26→21:15)
[2021-10-29] MEDS: ONDANSETRON HCL 4 MG/2 ML VIAL IV PRN (21:15)
[2021-10-29 22:00] VITALS: BP 143/80
[2021-10-29 22:32] LABS: INR 1.05 (0.9-1.15)
[2021-10-30] MEDS: HYDROcodone-ACET 5/325MG TAB PO PRN ×3 (03:30→21:17)
[2021-10-30 04:00] VITALS: BP 149/79
[2021-10-30] MEDS: SUCRALFATE 1 GM/10 ML ORAL SUSP PO SCH ×4 (07:00→21:15)
[2021-10-30] MEDS: amLODIPine BESYLATE 5 MG TAB PO SCH (08:43)
[2021-10-30] MEDS: PANTOPRAZOLE 40 MG TAB PO SCH ×2 (08:55→21:16)
[2021-10-30 09:00] VITALS: BP 169/89
[2021-10-30] MEDS ORDERED: LIDOCAINE VISCOUS 2% 15ML UD ONE (09:44)
[2021-10-30] MEDS ORDERED: SODIUM CHLORIDE LOCK 10 ML ONE (09:44)
[2021-10-30] MEDS ORDERED: diphenhdrAMINE HCL 50 MG/1 ML VL ONE (09:45)
[2021-10-30] MEDS ORDERED: fentaNYL CITRATE 100 MCG/2 ML VL ONE (09:45)
[2021-10-30] MEDS ORDERED: MIDAZOLAM HCL 5 MG/ML-1ML VIAL ONE (09:45)
[2021-10-30] MEDS ORDERED: LORazepam 0.5 MG TAB PO SCH (10:00)
[2021-10-30 13:00] VITALS: BP 175/102
[2021-10-30] MEDS ORDERED: METOPROLOL TARTRATE 25 MG TAB PO ONE (14:00)
[2021-10-30] MEDS ORDERED: CHOLECALCIFEROL (VITD3) 2,000 UNIT CAP/TAB PO ONE (14:04)
[2021-10-30] MEDS ORDERED: ASCORBIC ACID 500 MG TAB PO ONE (14:04)
[2021-10-30] MEDS ORDERED: ZINC SULFATE 220mg CAP or TAB PO ONE (14:15)
[2021-10-30] MEDS: LORazepam 0.5 MG TAB PO PRN ×2 (15:20→17:30)
[2021-10-30 17:00] VITALS: BP 142/71
[2021-10-30] MEDS: ASCORBIC ACID 500 MG TAB PO SCH (21:16)
[2021-10-30] MEDS: METOPROLOL TARTRATE 25 MG TAB PO SCH (21:16)
[2021-10-30 22:16] VITALS: BP 156/84
[2021-10-31] MEDS: ACETAMINOPHEN 325 MG TAB PO PRN (00:20)
[2021-10-31] MEDS: LORazepam 0.5 MG TAB PO PRN (03:46)
[2021-10-31] MEDS: LABETALOL HCL 5 MG/ML 4ML SYRINGE IV PRN (04:12)
[2021-10-31] MEDS: SUCRALFATE 1 GM/10 ML ORAL SUSP PO SCH ×3 (05:04→17:05)
[2021-10-31 05:23] VITALS: BP_SYST 133; BP_SYST 167; BP_DIAS 54; BP_DIAS 81
[2021-10-31] MEDS: HYDROcodone-ACET 5/325MG TAB PO PRN (06:20)
[2021-10-31] MEDS ORDERED: LIDOCAINE VISCOUS 2% 15ML UD ONE (08:22)
[2021-10-31] MEDS ORDERED: SODIUM CHLORIDE LOCK 10 ML ONE (08:22)
[2021-10-31] MEDS ORDERED: diphenhdrAMINE HCL 50 MG/1 ML VL ONE (08:23)
[2021-10-31] MEDS: METOPROLOL TARTRATE 25 MG TAB PO SCH (08:41)
[2021-10-31] MEDS: PANTOPRAZOLE 40 MG TAB PO SCH (08:42)
[2021-10-31] MEDS: amLODIPine BESYLATE 5 MG TAB PO SCH (08:42)
[2021-10-31] MEDS: ASCORBIC ACID 500 MG TAB PO SCH (08:42)
[2021-10-31 09:00] VITALS: BP 154/99
[2021-10-31] MEDS: fentaNYL CITRATE 100 MCG/2 ML VL ONE ×2 (09:07→09:11)
[2021-10-31] MEDS: MIDAZOLAM HCL 5 MG/ML-1ML VIAL ONE ×2 (09:07→09:11)
[2021-10-31] MEDS ORDERED: ZINC SULFATE 220mg CAP or TAB PO SCH (10:00)
[2021-10-31] MEDS ORDERED: CHOLECALCIFEROL (VITD3) 2,000 UNIT CAP/TAB PO SCH (10:00)
[2021-10-31] MEDS ORDERED: LORazepam 0.5 MG TAB PO PRN (11:15)
[2021-10-31 12:04] LABS: Basophils # (auto) 0.2 10 ^3/uL (0-0.2); Basophils % (auto) 4.1 % (0.0-2.0); Eosinophils # (auto) 0 10 ^3/uL (0-0.8); Eosinophils % (auto) 0.8 % (0.0-7.0); Hematocrit 35.2 % (36.0-46.0); Hemoglobin 11.8 g/dL (12.2-16.2); Lymphocytes # (auto) 1.6 10 ^3/uL (0.4-5.4); Lymphocytes % (auto) 27.5 % (10.0-50.0); Mean Corpuscular Hemoglobin 31.4 pg (28.0-32.0); Mean Corpuscular Hgb Conc. 33.7 g/dL (32.0-36.0); Mean Corpuscular Volume 93.4 fL (80.0-100.0); Monocytes # (auto) 0.4 10 ^3/uL (0-1.3); Monocytes % (auto) 7.3 % (0.0-12.0); Neutrophils # (auto) 3.5 10 ^3/uL (1.6-8.6); Neutrophils % (auto) 60.3 % (37.0-80.0); Nucleated Red Blood Cells % 0.3 %; Red Blood Cells 3.77 10^6/uL (4.0-5.20); Red Cell Distribution Width 14.8 % (11.8-14.3); White Blood Cell 5.7 10^3/uL (4.4-10.8)
[2021-10-31] MEDS ORDERED: METO-281 PO (12:19)
[2021-10-31] MEDS ORDERED: PANT40T PO (12:19)
[2021-10-31] MEDS ORDERED: ASCO500T11 PO (12:19)
[2021-10-31] MEDS ORDERED: SUCR1TAB22 PO (12:19)
[2021-10-31] MEDS ORDERED: CHOL20007 PO (12:19)
[2021-10-31] MEDS ORDERED: ZINC220T6 PO (12:19)
[2021-10-31 12:24] LABS: Albumin 3.8 g/dL (3.4-5.0); BUN/Creatinine Ratio 9.8; Calcium 9.3 mg/dL (8.5-10.1); Magnesium 2.2 mg/dL (1.6-2.6); Potassium 3.8 mmol/L (3.5-5.1)
[2021-10-31 12:27] LABS: Bilirubin, Total 0.4 mg/dL (0.2-1.0); Total Protein 7.9 g/dL (6.4-8.2)
[2021-10-31] MEDS ORDERED: AZIT500T PO (12:31)
[2021-10-31 13:00] VITALS: BP 146/62
[2021-10-31] MEDS ORDERED: METOCLOPRAMIDE HCL 5MG/ml INJ 2ml VIAL IV SCH (14:00)
[2021-10-31 15:29] VITALS: BP 146/62
[2021-10-31 17:00] VITALS: BP 139/77
== END 2021-10-31 17:17 | disposition hospice, home (50) | DRG 241 ==
LOC: ER 12:30 → EDBD 12:30 → WEST WING 18:46 → TELE-WESTW 10-30 14:46
PROVIDERS: ADMIT Registered Nurse; ATTEND Internal Medicine
PROC: 0DB68ZX Excision of Stomach, Via Natural or Artificial Opening Endoscopic, Diagnostic (ICD-10-PCS; principal; 2021-10-31 08:45)
DX: K29.70 Gastritis, unspecified, without bleeding (principal); U07.1 COVID-19; K31.84 Gastroparesis; E87.1 Hypo-osmolality and hyponatremia; E11.43 Type 2 diabetes mellitus with diabetic autonomic (poly)neuropathy; K83.8 Other specified diseases of biliary tract; E11.22 Type 2 diabetes mellitus with diabetic chronic kidney disease; N18.32 Chronic kidney disease, stage 3b; J98.11 Atelectasis; R79.89 Other specified abnormal findings of blood chemistry; Z20.822 Contact with and (suspected) exposure to COVID-19; G89.29 Other chronic pain; I25.10 Atherosclerotic heart disease of native coronary artery without angina pectoris; M10.9 Gout, unspecified; E78.5 Hyperlipidemia, unspecified; I12.9 Hypertensive chronic kidney disease with stage 1 through stage 4 chronic kidney disease, or unspecified chronic kidney disease; Z86.73 Personal history of transient ischemic attack (TIA), and cerebral infarction without residual deficits; Z95.5 Presence of coronary angioplasty implant and graft; Z90.49 Acquired absence of other specified parts of digestive tract; Z88.8 Allergy status to other drugs, medicaments and biological substances; I25.2 Old myocardial infarction
CPT/HCPCS: 36415; 43239; 70450; 71045; 71250; 74176; 80053; 81001; 83735; 83880; 84443; 84484; 85007; 85025; 85027; 85379; 85610; 93005; 96361; 96374; 96375; G0378; J0696; J2250; J2405; J3490